=== PATIENT | male | born 1980 | race Caucasian/White ===

== ENCOUNTER 2019-12-30 09:50 | Day surgery (SDC) | payer BC, SELFPAY ==
[2019-12-22 14:27] VITALS: BMI 30.7
--- NOTE | 2019-12-27 06:16 | EKG12_ITS ---
Test Reason : PRE OP Blood Pressure : / mmHG Vent. Rate : 056 BPM Atrial Rate : 056 BPM P-R Int : 174 ms QRS Dur : 112 ms QT Int : 404 ms P-R-T Axes : 030 003 024 degrees QTc Int : 389 ms Sinus bradycardia Otherwise normal ECG Confirmed by ELBA FINK, JOVANNI ([id number]), avid editor MAXIMUS WAGNER ([id number]) on 12/28/2019 9:30:07 AM Referred By: Leno Santiago Confirmed By:JOVANNI ARREOLA MD
[2019-12-27 07:08] LABS: Hematocrit 45.4 % (40-54); Hemoglobin 14.9 g/dL (13.0-16.5); Mean Corp Hgb Conc 32.8 g/dL (32-36); Mean Corpuscular Hgb 30.8 pg (27.0-32.0); Mean Corpuscular Volume 93.8 fL (80-94); Mean Platelet Vol. 9.3 fl (6.2-12.0); Platelet Count 243 K/mm3 (150-450); RBC Distribution Width CV 12.2 % (11.6-14.6); RBC Distribution Width SD 42.1 fl (35.1-43.9); Red Blood Count 4.84 M/mm3 (4.6-6.2); White Blood Count 6.8 K/mm3 (4.4-11.0)
[2019-12-27 07:55] LABS: Anion Gap 5 (5-15); BUN 20 mg/dL (7-18); BUN/Creat Ratio 17.7 RATIO (10-20); Calcium,Total 8.9 mg/dL (8.5-10.1); Chloride 107 mmol/L (98-107); Creatinine, Serum 1.13 mg/dL (0.70-1.30); EST Glomerular Filtration Rate 77 mL/min (>60); Est Glom Filt Rate - Afr Amer 93 mL/min (>60); Glucose 121 mg/dL (74-106); Potassium 4.2 mmol/L (3.5-5.1); Sodium Level 141 mmol/L (136-145)
[2019-12-30 10:10] VITALS: BP 153/69; PULSE 72; RESP 16; TEMP 37; O2SAT 100; BMI 29.5
[2019-12-30] MEDS: Lactated Ringers 1,000 ML 100 ML IV (10:24)
--- NOTE | 2019-12-30 10:38 | PCM.HP.BLA ---
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 Leno Santiago MD) Pilonidal abscess (Acute) Depression with anxiety (Acute) Pilonidal cyst (Acute) Surgical History (Updated 12/22/19 @ 14:26 by Lise Mckinney) History of wisdom tooth extraction (Acute) history cyst removal lower back (Acute) Family History (Updated 12/22/19 @ 14:26 by Lise Mckinney) Mother Cancer kidney cancer Social History (Updated 12/22/19 @ 16:[address] Leno Santiago MD) Smoking Status: Former smoker alcohol intake: current substance use type: does not use HPI HPI HPI: ORLIN SY, is a 39 M who presents to the office today for surgical consultation regarding a pilonidal abscess. 39-year-old gentleman. Claims at 5 times he has had swelling of the coccygeal area. Previously would be sore for 2 to 3 days and then spontaneously resolved. On this occasion he developed so much pain that 6 days ago on Friday he had to leave work. Fortunately it spontaneously drained over the weekend and he felt better. He was seen at [facility] on December 19 with a diagnosis of pilonidal cyst/abscess. He was initiated on doxycycline 100 mg twice daily. He was set up with a surgical follow-up. He has been feeling better since that time. 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 He has not had any previous surgery in this area. He otherwise states that he enjoys good health. He has not had any fever chilling. HPI HPI HPI: ORLIN SY, is a 39 M who presents to the office today for ROS General General: No weight change, appetite, fatigue, colon cancer, breast cancer or weakness HEENT HEENT: No difficulty swallowing, eye injury, eye surgery, swollen glands or hoarseness Endo Endocrine: No thyroid disease, diabetes mellitus, thyroid cancer, Hair loss, heat intolerance or cold intolerance Skin Skin: No rash or changing moles Breast Breast: No left breast lump, right breast lump, nipple discharge, breast pain, abnormal mammogram, abnormal US or breast enlargement Musc Musculoskeletal: No back problems, arthritis, rheumatoid arthritis, gout or joint pain Cardio Cardiovascular: No murmur, pacemaker, heart disease, atrial fibrillation, high blood pressure, heart attack, heart stent, palpitations, shortness of breat with exertion or chest pain Psych Psychiatric: Yes anxiety; no depression or hearing voices Resp Respiratory: No shortness of breath, No sleep apnea, No cough, No COPD, No asthma, No emphysema, No wheezing Gastro Gastrointestinal: No abdominal pain, No nausea or vomiting, No diarrhea, No constipation, No blood in stool, No acid reflux, No hemorrhoids, No ulcers, No gallbladder problem, No black,tarry stools Sergei Hematologic: No blood thinners, No blood disorders, No bleeding, No anemia, No blood clots Neuro Neurologic: No system reviewed and no additional complaints, except as docu, No as per HPI, No abnormal walking, No abnormal hearing, No abnormal movements, No abnormal speech, No behavioral changes, No burning sensations, No confusion, No seizure-like activity, No unsteadiness, No dizziness, No localized weakness, No frequent falls, No headache(s), No lack of coordination, No loss of vision, No memory loss, No numbness, No other visual disturbances, No radiating pain, No restless legs, No sensory deficit, No fainting, No tingling, No tremor(s), No weakness, No other Exam Const General: cooperative, healthy appearing, comfortable, no acute distress Nutritional Appearance: overweight Orientation: alert, awake [facility] Head: normal to inspection Chest Chest palpation & inspection: normal inspection of the chest Breast Palpation: No nipple discharge Resp Effort & Inspection: normal respiratory effort Auscultation: clear to auscultation bilaterally Cardio Rate: regular rate Rhythm: regular rhythm Heart Sounds: no murmurs GI Palpation: soft, no hepatosplenomegaly Auscultation: normal bowel sounds Skin Other: Left apical sacrococcygeal area small 1.5 cm colleen indurated area minimal erythema nontender with area of punctate small drainage site. No expressible purulence. Sinus tract noted apically and inferiorly. Excessive Noted Neuro Cognition: normal cognition Extrem General: no calf tenderness Psych Affect: normal affect Assessment & Plan Problems 1. Pilonidal abscess L05.01 Plan Pilonidal abscess spontaneously drained. The patient is currently on doxycycline 100 mg orally twice daily. I had an extensive discussion with him regarding definitive treatment for pilonidal abscess pilonidal cyst and sinuses. We discussed multiple techniques benefits risk complications and alternatives. Absolutely no guarantee of success have been offered. The patient will initiate hair clipping. I have discussed with him a vertical elliptical excision with primary repair. I discussed the importance of having him infection free at that time. He has had an opportunity to ask and have questions answered. This point he wants an attempt at a definitive treatment option. He is aware that unfortunate there are no guarantees of success. He has had an opportunity ask and have questions answered. I very much appreciate the opportunity of assisting with his surgical care. We will schedule and proceed at his discretion. CC: Dr. Leobardo Santiago, III and Ovidio Santiago M.D., F.A.C.S. Coding Level of Care Code Off vis,new,level 2 Diagnoses Pilonidal abscess L05.01 12/22/19 1632 <Electronically signed by Leno Santiago MD> Date Leno Santiago MD I have re-examined the patient. There are no clinical changes since date of exam. Procedure Criteria Procedure Type: Elective COVID Risk Discussion: The surgeon/proceduralist and patient have discussed in detail the risk of exposure to and/or potential harm posed by the COVID-19 virus with having a surgery/procedure at this time versus the risk of delaying the surgery/procedure. It is not possible to know either the risk of delaying the surgery or procedure or chance of getting an infection with perfect accuracy, but a joint decision was made between the patient and the surgeon/proceduralist to proceed at this time with the scheduled surgery/procedure as indicated on the consent form.
--- NOTE | 2019-12-30 10:39 | PCM.DC.GS ---
Discharge Diet: Light diet - advance as tolerated - if you have questions about your diet instructions, please talk to you doctor. Discharge Activity: May Drive - May drive in approximately 5 days pending drain and comfort, May Not Shower Lifting Restrictions: 10 pounds Call your doctor if your incision/area has: Continuous Slow Oozing, Sudden Increased Bleeding, Increased Pain/ Swelling, Increased Redness, Foul Smelling Discharge Call your doctor if you observe: Fever of 101 or Higher Suture Line Care: Avoid Pulling/Pushing, Avoid Pinching/Bending Additional Dressing/Incision Instructions:: You may change the dressing daily. Utilize a Q-tip and peroxide to cleanse along the suture line and around and a drain. Reapply then dry gauze and paper tape Allergies/Adverse Reactions: Allergies No Known Allergies Allergy (Unverified 12/30/19 10:03) Medications to take at Discharge doxycycline hyclate 100 mg capsule 100 mg PO BID 12/22/19 paroxetine HCl 10 mg tablet 10 mg PO DAILY 12/22/19 Multivitamin 1 ea PO DAILY 12/23/19 [place]-3 Fatty Acids/Fish Oil [Fish Oil 1,000 mg Capsule] 1 ea PO DAILY 12/23/19 Turmeric Root Extract [Turmeric] 500 mg PO DAILY 12/23/19 Orders to be completed after discharge: CORONAVIRUS 19, EMILY SCREEN Time Frame: 12/24/19, Facility: [facility], Location: Laboratory Primary Care Physician: Leobardo Santiago III, MD [Primary Care Provider] - Test Results: Test results from this visit will be discussed in further detail at your follow-up appointment, if applicable. Please Follow Up With: Leno Santiago MD - [phone] When: Call to make an appointment to be seen as recommended
--- NOTE | 2019-12-30 11:00 | PILCYST_PTH ---
PATIENT: SONAL SY LOC[place] [facility] [place][id number] AGE/SX: 39/M ROOM: RE12/30/[address]: Dr. Leno Santiago MD : 1980 BED: DIS: 12/30/2019 SPEC #: [id number] RECD: 12/31/19 06:52 STATUS: GABRIEL JAYLENE #: [id number] EDER: 12/30/19 11:[address]: Leno Santiago DEPT: SURGICAL PATHOLOGY RECD BY: Mina Baeza ENTERED: 12/31/19 07:37 SP TYPE: Pilonidal OTHR DR: Dr. Leobardo Santiago III, MD Tissues: PILONIDAL TISSUE Procedures: Surgery Specimen Level III HEADER OPERATION: Excision pilonidal cyst PRE-OP DIAGNOSIS: Pilonidal abscess TISSUE SUBMITTED: Pilonidal cyst MICROSCOPIC DIAGNOSIS Pilonidal cyst, excision: Consistent with Pilonidal cyst with associated inflammation and foreign body giant cell reaction. ISABEL:arturo 01/03/20 MICROSCOPIC DESCRIPTION Slides are reviewed. GROSS DESCRIPTION Received in fixative is one container labeled with the patient's name and designated pilonidal cyst. The specimen consists of a piece of skin with underlying tissue measuring 10.5 x 2.8 cm and up to 2.5 cm in thickness. Sections reveal focal congested area. Rolled Ham Lacer sections are submitted in two cassettes. / ISABEL:arturo 12/31/19 TC:5 CPT: 98992
[2019-12-30] MEDS: Cefazolin 2 GM in 0.9% Normal Saline 100 ML IV (12:24)
[2019-12-30] MEDS: Bupivacaine Mpf 0.5% 30 ML VIAL (13:30)
--- NOTE | 2019-12-30 13:39 | PCM.OPRPT ---
Problem List (1) Pilonidal abscess Status: Acute Report of Operation Date of Procedure: 12/30/19 Pre-Operative Diagnosis: Pilonidal cyst/abscess Post-Operative Diagnosis: Same Surgery/Procedure Performed:: Pilonidal cystectomy Description of Surgical Findings:: Timeout and informed consent was obtained. 39-year-old gentleman was taken to the operating room and underwent general endotracheal intubation anesthesia he was then placed prone on the table. Care for shoulder and pelvic roll placing. Careful eye protection. Arms were padded. The sacrococcygeal area was carefully treated with Skin-Prep and then taped for exposure. The area was prepped and draped. A vertical elliptical excision base slightly to the left of midline was performed. Length of this incision approximately 10 cm long. Slight angled flapping was performed on the left with more of a vertical dissection on the right. Subcutaneous flap was raised on the right. A 10 round JAZLYN drain was exited superior and left through stab hole was placed to the mobilized subcutaneous fat on the right. It was secured skin with 3-0 nylon. The wound was then closed with a deep layer of interrupted 2-0 Vicryl attempting to close space and secured deep tissue. Then a more superficial subdermal layer of interrupted 3-0 Vicryl was performed. Then the skin edges were approximated with simple and mattress sutures of 3-0 nylon. Excellent approximation was achieved. Excellent obliteration of the ivy cleft was achieved. Nicely approximated wound edges. Sterile dressings were applied. The heath-incisional areas anesthetized with 30 cc of 0.5% Marcaine. Sponge and instrument and needle counts were reported the surgeon to be correct. Blood loss minimal. He tolerated the procedure well and was taken to the recovery room in satisfactory addition without apparent complication. Specimens pilonidal disease. Drains 10 round JAZLYN. Blood loss minimal at 100 cc. Leno Santiago M.D., F.A.C.S. Type of Anesthesia:: General Anesthesiologist: Song Zarco
[2019-12-30 13:52] VITALS: BP 151/85; BP 153/69; PULSE 77; RESP 16; TEMP 36.4; O2SAT 93
[2019-12-30 14:00] VITALS: BP 122/77; BP 153/69; PULSE 74; RESP 16; O2SAT 97
[2019-12-30 14:15] VITALS: BP 132/80; BP 153/69; PULSE 71; RESP 16; O2SAT 100
[2019-12-30 14:21] VITALS: BP 135/80; BP 153/69; PULSE 76; RESP 16; TEMP 36.4; O2SAT 100
[2019-12-30 15:44] VITALS: BP 123/65; BP 153/69; PULSE 74; RESP 16; O2SAT 100
== END 2019-12-30 15:49 | disposition home or self-care (01) ==
LOC: SDC 09:56 → AC 09:57
PROVIDERS: PCP Family Medicine; Referring Provider Surgery; Visit Provider Surgery
PROC: (CPT 11770; principal; 2019-12-30 10:45)
DX: L05.01 Pilonidal cyst with abscess (principal); Z87.891 Personal history of nicotine dependence
CPT/HCPCS: 00300; 11770; 36415; 80048; 85027; 87635; 88304; 93005; G2023; J7120; J2405; Q9968; U0003

== ENCOUNTER 2022-09-05 23:13 | Emergency (ER) | payer OTHER, SELFPAY ==
[2022-09-05 23:14] VITALS: BP 115/75; PULSE 95; RESP 20; TEMP 36.6; O2SAT 98; BMI 29.9
--- NOTE | 2022-09-05 23:32 | EKG12_ITS ---
Test Reason : CP Blood Pressure : / mmHG Vent. Rate : 119 BPM Atrial Rate : 119 BPM P-R Int : 134 ms QRS Dur : 112 ms QT Int : 328 ms P-R-T Axes : 052 000 042 degrees QTc Int : 461 ms Sinus tachycardia Otherwise normal ECG Confirmed by BRENDA FINK, DESIRE ([id number]), editorial intern RACHEL REYNOSO ([id number]) on 09/09/2022 10:56:28 AM Referred By: BB Confirmed By:TEE GUTIERREZ MD
--- NOTE | 2022-09-05 23:40 | RAD_ITS ---
INDICATION: Chest pressure EXAMINATION/TECHNIQUE: X-RAY - XR Chest 2 Views COMPARISON: None. FINDINGS: LINES/DEVICES: None. LUNGS: No consolidation, edema or effusion. No pneumothorax. MEDIASTINUM AND CARDIOVASCULAR STRUCTURES: Cardiac silhouette not enlarged. Central airways and mediastinal contour are unremarkable. BONES AND SOFT TISSUES: Unremarkable. RAD/Chest PA and Lateral IMPRESSION: No radiographic evidence of acute cardiopulmonary disease. Electronically Signed: Stella Mauricio MD at 0:22 EDT ,
[2022-09-05 23:47] LABS: Hematocrit 42.9 % (40-54); Hemoglobin 14.6 g/dL (13.0-16.5); Mean Corpuscular Hgb 31.7 pg (27.0-32.0); Mean Corpuscular Volume 93.1 fL (80-94); Mean Platelet Vol. 9.3 fl (6.2-12.0); Platelet Count 237 K/mm3 (150-450); RBC Distribution Width CV 12.2 % (11.6-14.6); RBC Distribution Width SD 41.7 fl (35.1-43.9); Red Blood Count 4.61 M/mm3 (4.6-6.2); White Blood Count 7.5 K/mm3 (4.4-11.0)
--- NOTE | 2022-09-06 00:12 | ED.VIS.CHEST ---
HPI <Dr. Jose Vaughan MD - Last Filed: 09/08/22 07:19> History of Present Illness Chief Complaint: Chest Pain Detail of Chief Complaint: Midsternal chest pressure that woke him from sleep 20 minutes prior to pres Informant: patient Onset/Context/Timing Onset: Hours Activity at onset: sudden Timing: Continuous Quality: Positive for Pressure Current Severity: Mild Maximum Severity: Moderate Worsened By: Nothing Relieved By: Nothing Associated Symptoms: Positive for Nausea and Lightheadedness; Negative for Vomiting, Diaphoresis, Dyspnea, Cough, Fever, Acid Reflux or Palpitations Narrative Narrative: Patient is a 42-year-old male who is a former smoker. He presents because he was awakened from sleep with pressure sensation in his mid chest that radiated to the right side of his neck and occiput. He also complained of back pain. He describes it as pressure not ripping or tearing. He denies history of hypertension. He has no medical problems. He does admit to history of depression and anxiety. He is a former smoker. Male family member had OR at the age of 55. Patient denies history of PE or DVT. Patient denies history of hiatal hernia or reflux. Patient does endorse mild intolerance to greasy food. There is no family history of cholelithiasis and he denies history of cholelithiasis. The pain does not radiate to the intrascapular region. He denies leg pain, swelling discoloration. He denies black or maroon-colored stool. Prior Similar Symptoms: No Recent Illness/Hospitalization: No CVD Risk Factors: Positive for Family History 1' </=55; Negative for Hypertension, Diabetes, Hypercholesterolemia or Smoking PE Risk Factors: Negative for Recent Travel/Surgery, Recent Immobilization, Prior DVT or PE, Cancer or OCP + Smoking + >/=35 TAD Risk Factors: Negative for Marfan's Syndrome, Hypertension or Family History PFSH <Dr. Jose Vaughan MD - Last Filed: 09/08/22 07:19> [facility] Medical History Depression with anxiety Pilonidal abscess Pilonidal cyst Home Medications buspirone 15 mg tablet 15 mg PO TID 09/06/22 [History Last Taken Unknown] mirtazapine 15 mg tablet 15 mg PO QHS 09/06/22 [History Last Taken Unknown] venlafaxine 37.5 mg tablet 37.5 mg PO DAILY 09/06/22 [History Last Taken Unknown] Allergy/AdvReac Type Severity Reaction Status Date / Time No Known Allergies Allergy Verified 09/05/22 23:18 Family History Mother Cancer kidney cancer Surgical History history cyst removal lower back History of wisdom tooth extraction S/P surgical removal of pilonidal cyst Social History (Updated 09/06/22 @ 00:[address] Jose Vaughan MD) household members: none Smoking Status: Former smoker alcohol intake: current substance use type: does not use ROS <Dr. Jose Vaughan MD - Last Filed: 09/08/22 07:19> ROS ED Constitutional Constitutional ED: Denies chills, fever(s), subjective, sweats or weight loss Eyes Eyes: Reports none; Denies blurry vision, change in vision or diplopia ENT ENT ED: Denies ear pain, rhinorrhea or sore throat Cardiovascular Cardiovascular: Reports as per HPI; Denies orthopnea or paroxysmal nocturnal dyspnea Respiratory/Chest Respiratory/Chest: Denies cough, dyspnea, dyspnea on exertion, orthopnea or paroxysmal nocturnal dyspnea Gastrointestinal Gastrointestinal: Denies abdominal pain, diarrhea, melena, nausea or vomiting Musculoskeletal Musculoskeletal: Reports back pain; Denies arthralgias, myalgias or neck pain Integumentary Denies abscess, Abrasions or rash Neurologic Neurologic: Reports headache(s); Denies paresthesias or weakness Psychiatric Psychiatric: Reports anxiety Hematologic/Lymphatic Hematologic/Lymphatic: Denies easy bleeding or easy bruising EXAM <Dr. Jose Vaughan MD - Last Filed: 09/08/22 07:19> Physical Exam Const Vital Signs: 09/05/22 23:14 09/05/22 23:32 09/06/22 00:29 Temperature 97.9 F Temperature Source Temporal Pulse Rate 95 96 Respiratory Rate 20 H 16 Respiratory Effort Normal Respiratory Pattern Normal Blood Pressure 115/75 Blood Pressure Mean 88 Pulse Ox 98 Oxygen Delivery Method Room Air Room Air 09/06/22 01:22 Temperature Temperature Source Pulse Rate 85 Respiratory Rate 16 Respiratory Effort Respiratory Pattern Blood Pressure Blood Pressure Mean Pulse Ox 98 Oxygen Delivery Method Room Air Positive well nourished and well developed General Appearance ED: well developed and NAD; Negative for pallor HEENT Reports moist mucous membranes HEENT Narrative: Nares patent. Posterior pharynx out erythema or exudate. normocephalic and atraumatic Eyes PERRL and EOMs intact bilaterally General Eye ED: Negative for pale conjunctiva or scleral icterus Neck no lymphadenopathy, supple and no JVD Chest Wall inspection of chest normal and palpation of chest normal Resp normal respiratory effort and clear to auscultation bilaterally Resp Narrative: There is no chest wall pain to palpation. There is no pain with movement. Cardio regular rate, regular rhythm, S1 normal heart sound, S2 normal heart sound and no murmurs Peripheral Pulses: pulses 2+ throughout GI normal to inspection, nondistended, normoactive bowel sounds, soft to palpation, non-tender, non-distended and no masses; Negative for hepatosplenomegaly GI Narrative: There is no palpable pulsatile mass. There is no abdominal bruit. Back/Spine no CVA tenderness and no thoracic nor lumbar tenderness Extremity normal to inspection Extremity Narrative: Distal pulses noted. There is noticed mild peripheral arterial disease. General Extremety ED: Negative for edema or pulses abnormal General Extremity: Negative for edema or pulses abnormal Neuro oriented x3, CN's II-XII intact bilaterally, no sensory deficits noted and gait normal Sensorium / Orientation: awake and alert Motor Exam: strength 5/5 throughout Psych mental status grossly normal Skin no rashes or lesions noted and no wounds General Skin Exam: Negative for jaundice or pallor <Dr. Mich Lawson MD - Last Filed: 09/06/22 03:26> Physical Exam Const Vital Signs: 09/05/22 23:14 09/05/22 23:32 09/06/22 00:29 Temperature 97.9 F Temperature Source Temporal Pulse Rate 95 96 Respiratory Rate 20 H 16 Respiratory Effort Normal Respiratory Pattern Normal Blood Pressure 115/75 Blood Pressure Mean 88 Pulse Ox 98 Oxygen Delivery Method Room Air Room Air 09/06/22 01:22 Temperature Temperature Source Pulse Rate 85 Respiratory Rate 16 Respiratory Effort Respiratory Pattern Blood Pressure Blood Pressure Mean Pulse Ox 98 Oxygen Delivery Method Room Air <Dr. Jose Vaughan MD - Last Filed: 09/08/22 07:19> Heart Score History: Slightly/Non-Suspicious ECG: Normal Age: </= 45 years Risk Factors: 1 or 2 Risk Factors Score: 1 <Dr. Mich Lawson MD - Last Filed: 09/06/22 03:26> Heart Score Troponin: </= Normal Limit Score: 1 MDM <Dr. Jose Vaughan MD - Last Filed: 09/08/22 07:19> [facility] Narrative Medical decision making narrative: Presents with chest pressure that started 20 minutes prior to presentation. This may represent GERD/reflux. Also need to evaluate for cardiac etiology. With a negative clinical Hernandez sign doubt biliary. CBC was obtained to assess for anemia and white count. Troponin with 2-hour troponin was obtained since he presented with 20 to 30 minutes of the onset of his symptoms. History & Record Review Additional record(s) reviewed:: Prior inpatient record (There are no inpatient records.), Prior outpatient record (Surgery in 2019 for pilonidal cyst.) and Prior labs Lab Data Attestation: I reviewed the patient's lab results. Lab results narrative: CBC is unremarkable. Basic metabolic panel is remarkable for an elevated creatinine. Prior creatinine was obtained in 2019 was normal. GFR is 55. First troponin is normal at 6. Labs: Laboratory Results - last 24 hr 09/05/22 09/05/22 09/05/22 23:40 23:40 23:40 WBC 7.5 RBC 4.61 Hgb 14.6 Hct 42.9 MCV 93.1 MCH 31.7 MCHC 34.0 RDW Std Deviation 41.7 RDW Coeff of Albert 12.2 Plt Count 237 MPV 9.3 Sodium 138 Potassium 3.5 Chloride 101 Carbon Dioxide 28.0 Anion Gap 9 BUN 28 H Creatinine 1.49 H Estim Creat Clear Calc 69.49 Est GFR (MDRD) Af Amer 67 Est GFR (MDRD) Non-Af 55 L BUN/Creatinine Ratio 18.8 Glucose 203 H Calcium 8.7 Troponin I High Sens Cancelled 6 09/06/22 01:49 WBC RBC Hgb Hct MCV MCH MCHC RDW Std Deviation RDW Coeff of Albert Plt Count MPV Sodium Potassium Chloride Carbon Dioxide Anion Gap BUN Creatinine Estim Creat Clear Calc Est GFR (MDRD) Af Amer Est GFR (MDRD) Non-Af BUN/Creatinine Ratio Glucose Calcium Troponin I High Sens 6 Radiography Diagnostic Testing: Clinical Impression(s) from Imaging Studies Chest X-Ray 09/05/22 23:40 IMPRESSION: No radiographic evidence of acute cardiopulmonary disease. Electronically Signed: Stella Mauricio MD at 0:22 EDT , EKG Initial EKG: Attestation: I personally reviewed and interpreted this EKG as follows: Interpretation: Sinus Tachycardia (Sinus tachycardia of 119. EKG is otherwise normal. NE interval is 134 ms. Cures duration 112 ms. QT duration 282 ms. Benton is normal. There is an RR prime in V1 noted. This is unremarkable.) Differential Diagnosis Chest pain/SOB: pulmonary embolism Reason(s) PE less likely: Positive for PERC negative, not tachycardic (Vitals reveal a heart rate of 95. Monitor reveals a heart rate of 96.) and not hypoxic, pneumothorax Reason(s) pneumothorax less likely: Positive for bilateral breath sounds and ARNP withhout PTX, pneumonia Reason(s) pneumonia less likely: Positive for no infiltrate on CXR, no elevation in WBC count, no noted fever and symptoms not consistent with acute infection and aortic dissection Reason(s) Aortic dissection less likely:: Positive for normal vascular exam, no history of HTN, normal neurological exam, no significant risk factors for dissection, no widened mediastinum on CXR, no ripping/tearing pain and blood pressure appropriate in ED Treatment and Re-Evaluation :: Patient was informed of his results. Awaiting 2-hour troponin. If 2-hour troponin and delta are normal plan is discharge. This may be due to GERD or anxiety since patient has history of anxiety. More likely GERD since this awoke him from sleep. The night physician will be made aware of his history physical and to make disposition once the 2-hour troponin has returned <Dr. Mich Lawson MD - Last Filed: 09/06/22 03:26> [facility] Lab Data Labs: Laboratory Results - last 24 hr 09/05/22 09/05/22 09/05/22 23:40 23:40 23:40 WBC 7.5 RBC 4.61 Hgb 14.6 Hct 42.9 MCV 93.1 MCH 31.7 MCHC 34.0 RDW Std Deviation 41.7 RDW Coeff of Albert 12.2 Plt Count 237 MPV 9.3 Sodium 138 Potassium 3.5 Chloride 101 Carbon Dioxide 28.0 Anion Gap 9 BUN 28 H Creatinine 1.49 H Estim Creat Clear Calc 69.49 Est GFR (MDRD) Af Amer 67 Est GFR (MDRD) Non-Af 55 L BUN/Creatinine Ratio 18.8 Glucose 203 H Calcium 8.7 Troponin I High Sens Cancelled 6 09/06/22 01:49 WBC RBC Hgb Hct MCV MCH MCHC RDW Std Deviation RDW Coeff of Albert Plt Count MPV Sodium Potassium Chloride Carbon Dioxide Anion Gap BUN Creatinine Estim Creat Clear Calc Est GFR (MDRD) Af Amer Est GFR (MDRD) Non-Af BUN/Creatinine Ratio Glucose Calcium Troponin I High Sens 6 Radiography Diagnostic Testing: Clinical Impression(s) from Imaging Studies Chest X-Ray 09/05/22 23:40 IMPRESSION: No radiographic evidence of acute cardiopulmonary disease. Electronically Signed: Stella Mauricio MD at 0:22 EDT , Treatment and Re-Evaluation Comments:: Patient turned over to me. His second troponin returned at 6, the same as the first 1 for a delta of 0. He is asymptomatic right now. His resting heart rate is 89 on my reevaluation, however his significant other expressed concern that we were sending him home without an answer, and the fact that his heart rate was in the 90s and 100s at times here, and he is normally in the 50s. 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 Given all of this, I had further discussion with them, obtaining my own history. It sounds like the patient woke up suddenly with pounding racing heartbeat and pressure/heaviness in his chest. He came right to the emergency department, where symptoms gradually resolved over about 10 minutes after he arrived here. Staff states that he was extremely anxious and panicky at the front end developer, but in my opinion it does not sound like an anxiety or panic attack because the symptoms, it sounds more likely that came later as a result of the symptoms. I did review his EKG, it shows sinus tachycardia and no other acute abnormality, on my interpretation. It sounds to me like the patient had a supraventricular dysrhythmia of some sort, and I suspect he had residual tachycardia afterwards which is common. Given his chest discomfort I agree with getting the troponins, and given that both of them are negative, and he is asymptomatic with heart rate of 89 sinus rhythm on the monitor at this time, it is safe for him to follow-up as an outpatient, returning to the ER for recurrent symptoms. I did offer CTA of the chest to evaluate for aortic dissection, he does not want that right now and would prefer to go home. All questions answered at the bedside prior to discharging them. He is asking for a referral to a PCP at [facility], since he does not want to see primary care at the [place] where his other care is provided at. Discharge Plan Triage Chief Complaint: Chest Pain ED Provider: Jose Vaughan Dx/Rx/DC Orders Clinical Impression: Chest pain, unspecified, Heart palpitations Instructions: ED Palpitations Prescriptions: No Action venlafaxine [Effexor] 37.5 mg Tablet 37.5 mg PO DAILY mirtazapine 15 mg Tablet 15 mg PO QHS buspirone [BuSpar] 15 mg Tablet 15 mg PO TID Primary Care Provider: Care Physician,No Primary Referrals: Darion Castillo MD [Non-Staff] - As soon as possible (call for appt) Disposition Disposition: Home, Self Care Discharge Date/Time: 09/06/22 03:23
[2022-09-06 00:13] LABS: Anion Gap 9 (5-15); BUN 28 mg/dL (7-18); BUN/Creat Ratio 18.8 RATIO (10-20); Calcium,Total 8.7 mg/dL (8.5-10.1); Chloride 101 mmol/L (98-107); Creatinine, Serum 1.49 mg/dL (0.70-1.30); EST Glomerular Filtration Rate 55 mL/min (>60); Est Glom Filt Rate - Afr Amer 67 mL/min (>60); Estimated Creatinine Clearance 69.49 ml/min; Glucose 203 mg/dL (74-106); Potassium 3.5 mmol/L (3.5-5.1); Sodium Level 138 mmol/L (136-145)
[2022-09-06 00:24] LABS: Troponin-I HS (w/2H Reflex) 6 pg/mL (3.0-78.0)
[2022-09-06 00:29] VITALS: PULSE 96; RESP 16
[2022-09-06 01:22] VITALS: PULSE 85; RESP 16; O2SAT 98
[2022-09-06 01:44] LABS: Reflex Troponin-HS? (from REC) Y
[2022-09-06 02:11] LABS: Troponin-I HS 6 pg/mL (3.0-78.0)
[2022-09-06 03:20] VITALS: PULSE 83; RESP 18; O2SAT 99
== END 2022-09-06 03:23 | disposition home or self-care (01) ==
PROVIDERS: Emergency Provider Emergency Medicine; Visit Provider Emergency Medicine
DX: R07.9 Chest pain, unspecified (principal); Z87.891 Personal history of nicotine dependence; R00.2 Palpitations; F41.8 Other specified anxiety disorders
CPT/HCPCS: 71046; 80048; 84484; 85027; 93005; 99284; A4216

== ENCOUNTER 2023-03-28 09:42 | Day surgery (SDC) | payer BC, OTHER, SELFPAY ==
--- NOTE | 2023-03-28 | LES_PTH ---
PATIENT: SONAL SY LOC: [facility] U#:[id number] AGE/SX: 42/M ROOM: RE03/28/[address]: Dr. Fern Dykes MD : 1980 BED: DIS: 03/28/2023 SPEC #: [id number] RECD: 03/28/23 13:19 STATUS: GABRIEL JAYLENE #: [id number] EDER: 03/28/23 00:[address]: Fern Dykes DEPT: SURGICAL PATHOLOGY RECD BY: Leonel Choudhury ENTERED: 03/28/23 13:20 SP TYPE: Lesion OTHR DR: No Primary Care Phys Tissues: A - Skin of forehead B - Skin of face, NOS Procedures: Surgery Specimen Level IV HEADER OPERATION: Shave lesion forehead, excision lesion right cheek PRE-OP DIAGNOSIS: Lesion right cheek, forehead TISSUE SUBMITTED: A - Shaved lesion forehead, B - Excised lesion right cheek - check margins MICROSCOPIC DIAGNOSIS A. Skin lesion of forehead, shave biopsy: Verrucoid keratosis, inflamed. Organisms consistent with tinea. Hyperkeratosis and focal parakeratosis. B. Skin lesion of right cheek, excision: Verrucoid keratosis, inflamed, completely excised. Solar elastosis. AM:arturo 03/31/2023 COMMENT Case has been reviewed in consultation with Dr. Rahman who concurs with the above diagnosis. IDC:SJ MICROSCOPIC DESCRIPTION Slides are reviewed. GROSS DESCRIPTION A - Received in fixative is one container labeled with the patient's name and designated shaved lesion forehead. The specimen consists of an irregular piece of do-light brown skin measuring 1.0 x 1.0 x 0.2 cm. The specimen is inked, serially sectioned and submitted entirely in one cassette. B - Received in fixative is one container labeled with the patient's name and designated excision lesion right cheek. The specimen consists of a piece of do-white skin measuring 0.6 x 0.7 cm and up to 0.4 cm in thickness. A lesion is noted on the surface measuring 0.6 cm in greatest dimension. The specimen is inked, serially sectioned and submitted entirely in one cassette. / ISABEL:arturo 03/28/2023 TC:2 CPT: 09345 x2
[2023-03-28 10:01] VITALS: BP 147/98; PULSE 80; RESP 16; TEMP 36.6; O2SAT 99; BMI 30.1
--- NOTE | 2023-03-28 11:44 | PCM.HP.BLA ---
History and Physical Date of Admission: 03/28/23 Patient examined and H&P is unchanged from examination on 03/25/2023. He has a lesion of his forehead and right cheek for excision and submitted for pathologic evaluation. Informed consent was obtained. Assessment & Plan Assessment/Plan (1) Neoplasm of uncertain behavior of skin: PLAN: Plan For excision lesions forehead and cheek
[2023-03-28 11:54] VITALS: BP 150/95; O2SAT 96
[2023-03-28 12:07] VITALS: O2SAT 98
[2023-03-28 12:12] VITALS: BP 146/90; BP 150/98; O2SAT 100; O2SAT 98; O2SAT 99
[2023-03-28] MEDS: Lidocaine 1% /Epi 1:100 9 ML, Sodium Bicarbonate 1 MEQ OPERA.SITE (12:15)
[2023-03-28] MEDS: BACITRACIN/POLYMYXIN B 15 GM Tube 1 APPLIC (12:42)
--- NOTE | 2023-03-28 12:44 | DCINST_ITS ---
Discharge Instructions Diet Discharge Diet: No restrictions Activity Additional Activity Instructions:: Keep your back elevated (recliner position) for the next 2-3 nights to reduce bleeding and swelling. Take the oral antibiotic (Keflex) 2 x a day until finished. On the forehead--may remove the bandaid tomorrow and leave it open. On the cheek--do not shave over the area. Follow Up Care Please Follow Up With: Fern Dykes MD Test Results: Test results from this visit will be discussed in further detail at your follow- up appointment, if applicable. Discharge Plan Admission Attending Provider: Fern Dykes Primary Care Provider: Care Physician,Arabella Primary Discharge Orders/Prescriptions Prescriptions: New cephalexin 500 mg capsule 500 mg PO BID Qty: 10 0RF No Action mirtazapine 15 mg Tablet 15 mg PO QHS buspirone [BuSpar] 15 mg Tablet 15 mg PO TID venlafaxine 37.5 mg tablet 75 mg PO DAILY Referrals / Follow Up: Care Physician,No Primary [Primary Care Provider] - Disposition Disposition (needs filled in before D/C Order can be placed): Home, Self Care
--- NOTE | 2023-03-28 12:51 | PCM.OPRPT ---
Problems Associated Problem List Diagnoses (1) Neoplasm of uncertain behavior of skin: Report of Operation Date of Procedure: 03/28/23 Pre-Operative Diagnosis: Lesion of forehead and right cheek of uncertain behavior Post-Operative Diagnosis: Same Surgery/Procedure Performed:: Shave lesion forehead (1.5 cm); excision lesion left cheek (1.0 cm) with intermediate closure Surgeon: Fern Dykes Type of Anesthesia: Local Specimen's removed: Lesion forehead and right cheek Description of Procedure: The procedure of shave lesion forehead and excision lesion right cheek was reviewed with the patient. He is aware that these will be submitted for pathologic evaluation. The patient was brought to the operating room and placed on the operating room table in the supine position. The forehead and right cheek are prepped and draped in the usual sterile fashion. 1% Xylocaine with epinephrine is used for local anesthetic. Following this, the lesion on the forehead is shaved at the base and the base full rise. Antibiotic ointment and a Band-Aid are placed on this area. On the right cheek, after anesthetizing the area with 1% Xylocaine with epinephrine, this site is elliptically excised and passed off the operative field to be sent to pathology. Hemostasis is controlled with cautery. The incision is then closed in layers using a Monocryl suture in the subcutaneous tissue and dermis. Skin edges were approximated with a running subcuticular Monocryl suture. Further refinement the closure was done with a fast-absorbing gut. The wound is then dressed with Dermabond. He tolerated the procedure well and was taken to the recovery area in an awake and stable condition. Needle and sponge counts are correct. Complications None Admit VTE Documentation VTE Mechan Device Prophylaxis: None Reason prophylaxis not ordered:: Treatment Not Indicated
[2023-03-28 13:01] VITALS: BP 146/96; BP 147/98; PULSE 71; RESP 18; TEMP 36.4; O2SAT 98
== END 2023-03-28 13:06 | disposition home or self-care (01) ==
LOC: SDC 09:43 → AC 09:45
PROVIDERS: Referring Provider Plastic Surgery; Visit Provider Plastic Surgery
PROC: (CPT 12051; principal; 2023-03-28 11:10)
DX: D48.5 Neoplasm of uncertain behavior of skin (principal); L57.0 Actinic keratosis; L57.8 Other skin changes due to chronic exposure to nonionizing radiation; W89.9XXA Exposure to unspecified man-made visible and ultraviolet light, initial encounter
CPT/HCPCS: 12051; 88305

== ENCOUNTER 2024-01-30 08:30 | Outpatient (RCR) | payer OTHER, BC, SELFPAY ==
--- NOTE | 2024-01-30 09:12 | HP.OTEVAL ---
Patient's Visit Information Visit Information Visit Information: SONAL SY is a 43 year old M, referred to Occupational Therapy by Dr. Narayan Frey MD, with a diagnosis of left LF/RF contusion. Date of Evaluation: 01/19/24 Occupational Therapist: Ave Merritt, OTR/Alice, CHT Subjective Subjective: This 43 year old male was seen for OT eval with dx of left RF, LF contusion. Pt states this happened November 29, 2023. Use of a wheel barrel hit his hand hand he thought hit his fingers. At night pain did increase- he would use ice and when he went to urgent care they did give him a brace but this he felt made it worse. Pt works for [employer]. pt states he is limited at work with grabbing or moving material - starts to hurt. 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 with work task by d/c Goal:: pt will report pain no greater than 2/10 with use of left hand with work tasks by d.c Goal:: pt will demo understanding of joint protection and ergo of wrist/finger by end of 1st session to avoid ecxessive finger stretching or trauma by end d/c. Goal:: pt will demo understanding of using kinensio tape to support structures around LF and RF to decrease lateral stress on lig/tendon structures by end of 1st session. Rehabilitation General Assessment: Pt arrives 7 weeks and 2 days from DOI demo with a weakness of left finger grip machine operator strength and soft tissue palpation pain lateral band. Pt would benefit from skilled OT services 1-2x week for next 3 -4 weeks however pt is working out of town and will be unable to attend therapy sessions consistently. Today therapist ed. pt on dx and supportive tape to avoid stress on lateral bands. pt demo understanding. PT to return prior to Dr. hernandez for to check on pts progress. Rehabilitation Potential: Good Anticipated Interventions Anticipated Interventions: Strengthening, Triggerpoint Release, Modalities, Orthoses, Joint Protection/Energy Conservation, Ergonomic Education, Education re assistive Equipment, Education re Diagnosis and Home Program Visit Plan Frequency: 1-2x /Week Duration: 4 Weeks TEXT: Thank you for the opportunity to evaluate your patient. For Medicare and Medicare HMO plans, please review the plan of care and approve it. It will need to be FAXED BACK to us at [phone] for Medicare purposes. Please let me know if there are questions or concerns regarding this plan of care. Physician Signature: Date:
== END 2024-01-30 19:00 | disposition home or self-care (01) ==
LOC: OT 08:30
PROVIDERS: Referring Provider Orthopaedic Surgery; Visit Provider Orthopaedic Surgery
DX: S60.042D Contusion of left ring finger without damage to nail, subsequent encounter (principal); S60.052D Contusion of left little finger without damage to nail, subsequent encounter; S60.222D Contusion of left hand, subsequent encounter
CPT/HCPCS: 97035; 97140; 97166; 97530

== ENCOUNTER → 2025-05-27 | Outpatient (CLI) | payer BC, SELFPAY ==
--- OUTSIDE RECORDS SUMMARY | 2025-05-27 07:03 | XMS RPT_ITS | CCD ---
Author Organization [facility] Care Team Providers Care Psychiatric Aide Instructor Name Role Phone Josefina FINK, Mel Primary Care Provider Care Physician, No Primary Primary Care Provider Unavailable Care Physician, No Primary Referring Provider Un available Jania, Dr. Shirley Attending Provider [phone] Jania, Dr. Shirley Referring Provider Jania, Dr. Shirley Other Provider Mel Warren MD Primary Care Provider Narayan Frey Referring Unavailable Narayan Frey Attending Unavailable Care Physician, No Primary Primary Care Unava ilable Unavailable Primary Care Provider Unavailabl e TESTANA LAMB Admitting Unavailable TESTRAKE, ANA Attending Unavailable TESTRAKE, ANA Referring Unavailable TESTRAKE, ANA Attending Unavailable TESTRAKE, ANA Referring Unavailable TESTRAKE, ANA Attending Unavailable TESTRAKE, ANA Referring Unavailable O'JOSECORINAMAXINE Attending Unavailable MEL WARREN Primary Care Unavailable TESTRAKE, ANA Attending Unavailable TESTRAKE, ANA Referring Unavailable TESTRAKE, ANA Attending Unavailable TESTRAKE, ANA Referring Unavailable TESTRAKE, ANA Attending Unavailable TESTRAKE, ANA Attending Unavailable TESTRAKE, ANA Attending Unavailable Medications Current Medications Medication Drug Class(es) Dates Sig (Normalized) Sig (Original) acetaminophen 325 mg / oxyCODONE hydrochloride 5 mg oral tablet (2 sources) Opioid Agonist Start: 01-21-2025 End: 01-28-2025 take 1 tablet by mouth every six hours as needed for pain oxyCODONE-acetami nophen (PERCOCET) 5-325 mg tablet Indications: Neuroma Take 1 tablet by mouth every 6 hours as needed for pain for up to 7 days. 28 tablet 01/21/2025 01/28/2025 Active amoxicillin 875 mg oral tablet (1 source) Penicillin-class Antibacterial Start: 04-27-2024 End: 05-04-2024 take 1 tablet by mouth twice daily amoxicillin (AMOXIL) 875 mg tablet Indications: Otitis media with effusion, left Take 1 tablet by mouth two times a day for 7 days. 14 tablet 04/27/2024 05/04/2024 Active amoxicillin 875 mg / clavulanate 125 mg oral tablet (2 sources) Penicillin-class Antibacterial Start: 01-21-2025 End: 01-28-2025 take 1 tablet by mouth twice daily amoxicillin-clavu lanate potassium (AUGMENTIN) 875-125 mg per tablet Take 1 tablet by mouth two times a day for 7 days. 14 tablet 01/21/2025 01/28/2025 Active busPIRone hydrochloride 15 mg oral tablet (15 sources) Start: 09-06-2022 take 1 tablet by mouth three times daily Buspirone (Buspar) 15 mg Tablet Active 15 MG PO THREE TIMES A DAY September 06, 2022 12:00am Start: 11-27-2020 take 1 tablet by yohan th three times daily busPIRone (BUSPAR) 10 mg tablet Take 1 tablet by mouth three times daily. 90 tablet 4 11/27/2020 Active Comment on above: Take 1 tablet by yohan th three times daily. cephalexin 500 mg oral capsule (1 source) Cephalosporin Antibacterial Start: 03-28-20 take 500 mg by mouth twice daily Cephalexin Active 500 MG PO TWICE A DAY March 28, 2023 12:00am mirtazapine 15 mg oral tablet (13 sources) Start: 09-07-19 take 1 tablet by mouth once daily at bedtime mirtazapine (REMERON) 15 mg tablet Take 1 tablet by mouth daily at bedtime. 09/06/2022 Active multivitamin tablet (13 sources) take 1 tablet by mouth once daily multivitamin tablet Take 1 tablet by mouth once daily. Suspended take 1 tablet by mouth once timoteo y multivitamin tablet Take 1 tablet by mouth once daily. Active take 1 tablet by mouth once timoteo y multivitamin tablet Take 1 tablet by mouth once daily. 0 Active Comment on above: Take 1 tablet by yohan th once daily. PARoxetine hydrochloride 20 mg oral tablet (13 sources) Serotonin Reuptake Inhibitor Start: 11-28-19 take 1 tablet by mouth once daily PARoxetine (PAXIL) 20 mg tablet Indications: Anxiety Take 1 tablet by mouth once daily. 30 tablet 4 11/27/2020 Active Comment on above: Take 1 tablet by yohan th once daily. raNITIdine 150 mg oral tablet (13 sources) Histamine-2 Receptor Antagonist take 1 tablet by mouth twice daily ranitidine (ZANTAC) 150 mg tablet Take 150 mg by mouth twice daily. Active Comment on above: Take 150 mg by mouth twice daily. 24 hr venlafaxine 75 mg extended release oral capsule (14 sources) Serotonin and Norepinephrine Reuptake Inhibitor Start: 01-05-20 take 1 capsule by mouth once daily in the morning venlafaxine ER (EFFEXOR XR) 75 mg 24 hr capsule Take 1 capsule by mouth every morning. 01/05/2024 Active Start: 03-25-2023 take 75 mg by mouth once daily Venlafaxine Active 75 MG PO DAILY March 25, 2023 3:46pm Start: 09-06-2022 End: 03-25-2023 take 1 tablet by mouth once daily Venlafaxine (Effexor) 37.5 mg Tablet Discontinued 37.5 MG PO DAILY September 06, 2022 12:00am March 25, 2023 3:46pm Completed/Discontinued Medications Medication Drug Class(es) Dates Sig (Normalized) Sig (Original) acetaminophen 325 mg / HYDROcodone bitartrate 5 mg oral tablet (2 sources) Opioid Agonist Start: 12-30-2019 End: 01-01-2020 take 1 tablet by mouth every six hours as needed Hydrocodone-Acetami nophen Discontinued 1 TABLET PO EVERY 6 HOURS NEEDED 5 December 30, 2019 January 01, 2020 12:03am Problems Active Problems Problem Classification Problem Date Documented Date Episodic/Chronic Anxiety disorders (17 sources) Anxiety; Translations: [Anxiety disorder, unspecified] Onset: 10-04-2015 Chronic Cardiac dysrhythmias (2 sources) Palpitations; Translations: [Palpitations] 09-06-2022 Episodic Esophageal disorders (8 sources) Gastroesophageal reflux disease without esophagitis; Translations: [Gastro-esophageal reflux disease without esophagitis] Onset: 01-06-2025 01-06-2025 Chronic Neoplasms of unspecified nature or uncertain behavior (3 sources) Neoplasm of uncertain behavior of skin; Translations: [Neoplasm of uncertain behavior of skin] 03-25-2023 Episodic Nonspecific chest pain (2 sources) Chest pain; Translations: [Chest pain, unspecified] 09-06-2022 Episodic Other and unspecified benign neoplasm (18 sources) Neuroma; Translations: [Benign neoplasm of peripheral nerves and autonomic nervous system, unspecified] Onset: 12-24-2024 11-23-2024 Episodic Other connective tissue disease (1 source) Bursitis of left foot; Translations: [Other enthesopathy of left foot and ankle] 11-23-2024 Episodic Other connective tissue disease (1 source) Bursitis of right foot; Translations: [Other enthesopathy of right foot and ankle] 11-23-2024 Episodic Other nervous system disorders (1 source) Mortons neuroma of left foot; Translations: [Lesion of plantar nerve, left lower limb] 11-23-2024 Chronic Other nervous system disorders (1 source) Mortons neuroma of right foot; Translations: [Lesion of plantar nerve, right lower limb] 11-23-2024 Chronic Other nervous system disorders (1 source) Lesion of plantar nerve, left lower limb; Translations: [Mariano's neuroma of left foot] Onset: 11-23-2024 Chronic Other nervous system disorders (1 source) Lesion of plantar nerve, right lower limb; Translations: [Mariano's neuroma of right foot] Onset: 11-23-2024 Chronic Otitis media and related conditions (1 source) Otitis media of left ear; Translations: [Unspecified nonsuppurative otitis media, left ear] 04-27-2024 Episodic Residual codes; unclassified (3 sources) Postoperative state; Translations: [Other specified postprocedural states] 01-25-2025 Episodic Residual codes; unclassified (1 source) Other specified postprocedural states; Translations: [Post-operative state] Onset: 03-31-2025 Episodic Skin and subcutaneous tissue infections (3 sources) Pilonidal cyst with abscess; Translations: [Pilonidal cyst with abscess] Onset: 03-31-2025 12-22-2019 Episodic Past or Other Problems Problem Classification Problem Date Documented Da te Episodic/Chronic Other and unspecified benign neoplasm (2 sources) Benign neoplasm of peripheral nerves and autonomic nervous system, unspecified; Translations: [Neuroma] Onset: 12-24-2024 Episodic Other connective tissue disease (1 source) Other enthesopathy of left foot and ankle; Translations: [Bursitis of left foot] Onset: 11-23-2024 Episodic Other connective tissue disease (1 source) Other enthesopathy of right foot and ankle; Translations: [Bursitis of right foot] Onset: 11-23-2024 Episodic Other skin disorders (11 sources) Folliculitis; Translations: [Follicular disorder, unspecified] Onset: 07-23-2013 Resolved: 06-01-2019 06-01-2019 Episodic Residual codes; unclassified (11 sources) Kidney donor; Translations: [Kidney donors] Onset: 12-23-2011 Resolved: 07-23-2013 07-23-2013 Episodic Unclassified (2 sources) history cyst removal lower back 01-08-2022 Results Test Name Value Interpretation Reference Range Facility [facility] 03-31-2025 CNOV Office Visit (PODIWS ) DARRELL WISEMAN ([id number]) 1980 M Date Time Provider Department 03/31/25 8:00 AM ANA GARCIA PODIWS During your visit today, we recorded the following information about you: Gil Wyman MA 04/02/2025 10:39 AM Signed AMB ROOMING INTAKE FLOWSHEET DATA Pain Pain Level: 5 Pain Location: Foot-Left Description: Sharp, Sore, Dull Duration Amount of Time: 2 Duration Units: Weeks Frequency: Continuous Intervention/Comfort measure: Medication Comments: tylenol or advil Ana Garcia 04/02/2025 10:39 AM Signed FOLLOW UP PODIATRIC OFFICE VISIT Chief Complaint: This 44 year old who presents for follow up:left foot neuroma excision Patient presents to clinic for follow-up left foot. Patient underwent neuroma excision in November 2024. His incision healed nicely and was doing well. Recently developed suture abscess. He completed his last dose of the cipro. The wound is now healed. Patient denies any drainage or redness. STill has pain to the plantar aspect of left foot and dorsal aspect of left foot. Worse with standing Patient states the pain is between the left 2nd and 3rd interspace PAIN EVALUATION 03/24/2025 0954 03/31/2025 0800 Pain Level: 8 5 Pain Location: Foot-Left Foot-Left Description: Aching;Sharp;Sore;Sta bbing Sharp;Sore;Dull Duration Amount of Time: 1 2 Duration Units: Weeks Weeks Frequency: Continuous Continuous Intervention/Comfort measure: -- Medication Comments: -- tylenol or advil Hemoglobin A1C (POCT) Date Value Ref Range Status 06/07/2019 5.9 (A) 4.2 - 5.6 % Final Comment: Point of care (POC) Hemoglobin A1c (HGBA1C) testing is intended to assess glucose control and provide a management tool for patients known to have diabetes and their healthcare providers. Target HGBA1C levels may depend on specific clinical circumstances. POC HGBA1C is not intended for use as a diagnostic or screening test; laboratory-based testing should be used for diagnostic purposes. The following information is supplemental and may not be applicable to specific diabetes management situations: The POC device siene maker provides a normal range of 4.2% to 6.5% for the HGBA1C POC test. However, the [place] [employer] guidelines indicate that patients with HGBA1C in the range of 5.7% to 6.4% are at increased risk for development of diabetes and that intervention by lifestyle modification may be beneficial. A HGBA1C level greater than or equal to 6.5% is considered diagnostic of diabetes, pending confirmatory testing. Use of HGBA1C testing to evaluate glucose control may not be appropriate for patients with hemoglobin variants or other conditions (e.g. anemia) that alter red blood cell lifespan. PCP: No primary care provider on file. PAST MEDICAL HISTORY Diagnosis Date Acid reflux Anxiety Erection pain 07/23/2013 Folliculitis 07/23/2013 Transplant donor evaluation 12/31/2011 Current Outpatient Medications Medication Sig venlafaxine ER (EFFEXOR XR) 75 mg 24 hr capsule Take 1 capsule by mouth every morning. mirtazapine (REMERON) 15 mg tablet Take 1 tablet by mouth daily at bedtime. multivitamin tablet Take 1 tablet by mouth once daily. PARoxetine (PAXIL) 20 mg tablet Take 1 tablet by mouth once daily. (Patient not taking: Reported on 04/27/2024) busPIRone (BUSPAR) 10 mg tablet Take 1 tablet by mouth three times daily. (Patient not taking: Reported on 04/27/2024) ranitidine (ZANTAC) 150 mg tablet Take 150 mg by mouth twice daily. (Patient not taking: Reported on 04/27/2024) No current facility-administered medications for this visit. ALLERGIES No Known Allergies PAST SURGICAL HISTORY Procedure Laterality Date CYST/MOLE REMOVAL tailbone PAST SURGICAL HISTORY OF Extraction of [place] Teeth Physical Exam: OBJECTIVE: Constitutional: Pt is a well developed 44 year old male who is alert, oriented, cooperative and in no apparent distress. Eyes: Following during examination. No redness or drainage. Respiratory: RR normal and nonlabored. Even breathing. No evidence of distress. Psychology: Patient is engaged during conversation. Normal affect and mood. Does not appear depressed or anxious. NVSI unchanged from previous visit. Dermatological: Surgical incision to left 3rd interspace is no healed again and there is no evidence of cellulitis Musculoskeletal/Ortho paedic: Patient has pain to palpation of left 2nd interspace Patient has mild pain to plantar aspect of left 3rd interspace - carolyn sign to left foot ASSESSMENT: (D36.10) Neuroma (primary encounter diagnosis) (Z98.890) Post-operative state (L02.612) Abscess of left foot PLAN: Reviewed wound culture to recent suture abscess. Gram negative bacteria. Completed course of cipro. The wound is no healed. No need for continued antibiotics Discussed pain (more content not included)... Normal [facility] 03-23-2025 [facility] (PODIMM) DARRELL WISEMAN ([id number]) 1980 M Date Time Provider Department 03/23/25 ANA GARCIA PODKAYLAM During your visit today, we recorded the following information about you: Ana Garcia 03/23/2025 8:20 PM Signed I called patient today to discuss my e consult to ID. He is currently on bactrim. WE discussed the culture results. Results are not yet final. He is on bactrim and tolerating the medication. I told him that I did reach out to ID. They did say other options would be to do levaquin which would cover pseudomonas. He is already prescribed bactrim and I like bactrim in the event he has MRSA on culture. Will add cipro. Cautioned patient against excessive/strenous exercise as cipro could lead to tendon rupture. Patient still having pain but states pain is 7/10. Pain is tolerable. Patient is informed to call if he has any issues Ana GarciaVARUN Allergies As of Date: 03/23/2025 (No Known Allergies) Date Reviewed: 03/22/2025 Reviewed by: Ceci Vines RN - Fully Assessed Order(s):ciprofloxaci n HCl (CIPRO) 500 mg tabletTake 1 tablet by mouth two times a day for 7 days.Disp: 14 tabletRfl: 0 Prescriptions as of 03/23/2025 - ciprofloxacin HCl (CIPRO) 500 mg tablet Take 1 tablet by mouth two times a day for 7 days. - sulfamethoxazole-trim ethoprim (BACTRIM DS) 800-160 mg per tablet Take 1 tablet by mouth two times a day for 7 days. - venlafaxine ER (EFFEXOR XR) 75 mg 24 hr capsule Take 1 capsule by mouth every morning. - mirtazapine (REMERON) 15 mg tablet Take 1 tablet by mouth daily at bedtime. - PARoxetine (PAXIL) 20 mg tablet Take 1 tablet by mouth once daily. - busPIRone (BUSPAR) 10 mg tablet Take 1 tablet by mouth three times daily. - ranitidine (ZANTAC) 150 mg tablet Take 150 mg by mouth twice daily. - multivitamin tablet Take 1 tablet by mouth once daily. 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 Encounter Status:Closed by ANA GARCIA DPToshia on 03/23/25 Normal [facility] Bacteria Wnd Culton 03-22-20 25 Bacteria identified Cx Nom (Wound) ORGANISM ID: 1 Rare skin romel No further workup GRAM STAIN: Rare Gram negative bacilli Rare Polymorphonuclear leukocytes Abnormal [facility] Comment on above: Performed By: #### [id number] ####[facility] [id number] [address] [facility] 03-22-2025 CNOV Office Visit (PODIWS ) DARRELL WISEMAN ([id number]) 1980 M Date Time Provider Department 03/22/25 10:15 AM ANA GARCIA PODIWS During your visit today, we recorded the following information about you: Ceci Vines RN 03/23/2025 7:37 AM Signed Patient presents with: Left Foot - Established Patient, Follow Up, Post Op, Pain AMB ROOMING INTAKE FLOWSHEET DATA Pain Pain Level: 7 Pain Location: Foot-Left Description: Pulsating, Sharp, Sore Duration Amount of Time: 5 Duration Units: Days Frequency: Continuous Patient presents for pain and swelling to the left foot that began 5-6 days ago. Pain is where he previously had neuroma surgery. Some bleeding/drainage from the center of the scar. Shooting pain radiates from lateral foot up the leg. Daja Martin LPN 03/23/2025 7:37 AM Signed UNIVERSAL PROTOCOL / SAFETY CHECKLIST Procedure to be Performed: Incision and drainage, left foot Sign In: A Moment of CARE was completed. Appropriate PPE (Personal Protective Equipment) worn by all providers involved with the procedure. Special equipment not required. Patient/Surrogate Stated/Verified: Patient name, Date of , Relevant allergies, and The intended procedure Time Out: Relevant labs, photos, and/or imaging studies have been reviewed. Intended patient and procedure match the source document(s) (e.g. consent, HANDP, associated studies [imaging, pathology]) match the intended patient and procedure. Consent obtained and matches the intended procedure. Yes. Correct side/site has been marked and visible. Medications required for this procedure are verified. Fire risk assessed and is not applicable. Implants: are not applicable. Sign Out: Specimens are all correctly labeled and sent. All instruments, equipment, possible retained foreign bodies are accounted for. Yes. The post-procedure plan of care has been communicated to the patient or surrogate. Ana Garcia 03/22/2025 11:23 AM Signed You have a very superficial suture abscess of your left foot. This was cleaned out today. A wound culture was performed and I will follow this daily to assure you are on the correct antibiotic Keep this clean and dry. Do not get wet in the shower. Cleanse the foot daily with soap and water. Dry thoroughly Apply a small piece of aquacel to the foot followed by guaze and roll gauze Use leif wrap for compression. Ok to wear sneak provided the combination of dressing and leif fit. If you need anything, please do not hesitate to contact me at the office or my personal cell, Ana Garcia 03/23/2025 7:37 AM Signed Subjective The patient is a 44-year-old male presenting with swelling, erythema, and drainage at the site of a prior neuroma excision on the left foot. The patient underwent neuroma excision between the second and third toes of the left foot on 01/21. The incision healed by early February, and he was reportedly doing well until approximately 5 days ago, when he developed localized pain and erythema at the surgical site. Two nights ago, he noted bleeding from the area after showering, and last night, he observed thicker, oozing drainage. He describes this new pain as distinct from his prior symptoms, with shooting pain radiating to the center of his leg. He also reports difficulty keeping his feet flat when sitting at the table to eat, describing a sensation that almost feels like palsy on the left side. He suspects he may have altered his gait over the past week due to the recent symptoms. He denies any trauma or falls. He has a cat with black hair. He reports a second neuroma that continues to cause discomfort, now described as feeling like a smaller rock rather than little deloris. Musculoskeletal: (+) left foot pain, (+) left foot tenderness, (+) left foot swelling, (+) shooting pain radiating up left leg, (+) left foot pressure with palpation Skin: (+) left foot incision drainage Objective There were no vitals taken for this visit. - Cardiovascular: Dorsalis pedis and posterior tibial pulses palpable bilaterally; capillary refill <5 seconds. - Skin: Surgical incision on the left foot is essentially healed; swelling and slight raised appearance along the proximal incision line, concerning for an underlying suture abscess; no extending erythema noted. - Musculoskeletal: Warm skin temperature from proximal to distal; tenderness noted on palpation of the left foot. Tests AND Prior Procedures: - Surgery for neuroma: Sutures removed approximately 2.5-3 weeks post-op; incision essentially healed by early February; initially doing well postoperatively. Assessment AND Plan # Post-operative state (Z98.890) # Abscess of left foot (L02.612) Patient is status post neuroma excision on January 21, with satisfactory initial healing. Now pre (more content not included)... Normal [facility] XR FOOT 3V AP/LAT/OBL LTon 1 XR FOOT 3V AP/LAT/OBL LT * * *Final Report* * * DATE OF EXAM: Mar 22 2025 12:12PM [id number] - XR FOOT 3V AP/LAT/OBL LT / PROCEDURE REASON: Post-operative state * * * * Physician Interpretation * * * * TITLE: XR FOOT 3V AP/LAT/OBL LT CLINICAL INDICATION: Status post excision of left third interspace neuroma with new pain and swelling. TECHNIQUE: 3 view right atrophic study of the left foot COMPARISON: Radiograph dated 01/21/2025 FINDINGS: No soft tissue gas or radiopaque foreign body. Mild soft tissue thickening in the third webspace. No cortical destruction or periostitis to suggest radiographic evidence of osteomyelitis. No fracture or dislocation. IMPRESSION: Mild soft tissue thickening in the third webspace. No radiographic evidence of osseous abnormality. Rn Gyn: PSCMelida Transcribe Date/Time: Mar 22 2025 12:13P Dictated by : EDE SMITH MD This examination was interpreted and the report reviewed and electronically signed by: EDE SMITH MD on Mar 22 2025 12:14PM EST [id number] Normal [facility] 03-21-2025 CNPN Telephone (PODIWS) DARRELL WISEMAN ([id number]) 1980 Date Time Provider Department 03/21/25 ANA GARCIA PODIWSiddhartha During your visit today, we recorded the following information about you: Maxine Mcduffie LPN 03/21/2025 10:36 AM Signed Patient calling in stating the past 4-5 days he has noticed pain and swelling in his foot where he had surgery. He rates the pain at a 5/6 out of 10. In the last 24 hours he has noticed some bleeding in the top/center of the scar as well. MATHIEU Cain Jessica, LPN 03/22/2025 8:22 AM Signed Patient calling in again this morning. He states the pain is worse today 7 or 8/10 and the pain is now radiating up to his fischer/calf and the pain is sharp. He did not have any bleeding last night but did have some light yellow drainage. He describes the fluid as not infection type yellow. Patient is requesting a call back. MATHIEU Cain Amanda, RN 03/22/2025 9:38 AM Signed Pt scheduled to be seen today Allergies As of Date: 03/21/2025 (No Known Allergies) Date Reviewed: 02/08/2025 Reviewed by: Daja Martin LPN - Fully Assessed Reason for Visit: Patient Update [1234] Prescriptions as of 03/22/2025 - venlafaxine ER (EFFEXOR XR) 75 mg 24 hr capsule Take 1 capsule by mouth every morning. - mirtazapine (REMERON) 15 mg tablet Take 1 tablet by mouth daily at bedtime. - PARoxetine (PAXIL) 20 mg tablet Take 1 tablet by mouth once daily. - busPIRone (BUSPAR) 10 mg tablet Take 1 tablet by mouth three times daily. - ranitidine (ZANTAC) 150 mg tablet Take 150 mg by mouth twice daily. - multivitamin tablet Take 1 tablet by mouth once daily. 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] 12/23/2011 07/23/2013 Folliculitis [L73.9] 07/23/2013 06/01/2019 Anxiety [F41.9] 10/04/2015 Neuroma [D36.10] 12/24/2024 Gastroesophageal reflux disease without esophag*01/06/2025 Encounter Status:Closed by CECI VINES on 03/22/25 [facility] CNOVon 02-08-2025 CNOV Office Visit (PODIWS ) DARRELL WISEMAN ([id number]) 1980 M Date Time Provider Department 02/08/25 8:00 AM ANA GARCIA PODIWS During your visit today, we recorded the following information about you: Daja Martin LPN 02/08/2025 8:30 AM Signed AMB ROOMING INTAKE FLOWSHEET DATA Pain Pain Level: 3 Pain Location: Foot-Left Description: Tenderness Duration Amount of Time: 18 Duration Units: Days Frequency: Intermittent Intervention/Comfort measure: Reposition, Relaxation, Medication Patient presents with: Left Foot - Post Op: S/P Excision of neuroma MATHIEU Zimmer Ana 02/08/2025 8:30 AM Signed DOS: 01/21/25 POD: 18 POV: 3 Surgical side: left This 44 year old presents post op left 3rd interspace neuroma Pain level: 3/10 Vomiting, fever, chills, shortness of breath: none Pain Control: tylenol Weightbearing status: full weightbearing 5.9 - 06/07/2019 PAST MEDICAL HISTORY Diagnosis Date Acid reflux Anxiety Erection pain 07/23/2013 Folliculitis 07/23/2013 Transplant donor evaluation 12/31/2011 Current Outpatient Medications Medication Sig venlafaxine ER (EFFEXOR XR) 75 mg 24 hr capsule Take 1 capsule by mouth every morning. mirtazapine (REMERON) 15 mg tablet Take 1 tablet by mouth daily at bedtime. PARoxetine (PAXIL) 20 mg tablet Take 1 tablet by mouth once daily. (Patient not taking: Reported on 04/27/2024) busPIRone (BUSPAR) 10 mg tablet Take 1 tablet by mouth three times daily. (Patient not taking: Reported on 04/27/2024) ranitidine (ZANTAC) 150 mg tablet Take 150 mg by mouth twice daily. (Patient not taking: Reported on 04/27/2024) multivitamin tablet Take 1 tablet by mouth once daily. No current facility-administered medications for this visit. ALLERGIES No Known Allergies Objective: Incision site is well coapted with no evidence of dehiscence. Suture was removed. Surgical incision is now healed. no erythema and edema surrounding surgical site. No drainage. No lymphadenopathy. No lymphangitis. No surrounding cellulitis. No pain of left 3rd interspace. Slight pain of left 2nd interspace Patient has no pain to palpation of left calf. Negative Ricketts's test. Assessment: (Z98.890) Post-operative state (primary encounter diagnosis) (D36.10) Neuroma Plan: Suture was removed Incision is now healed He can return to regular shoes and progress with activity as tolerated Discussed the neuroma of left 2nd interspace. If this becomes an issue, he is to contact the office and we can discuss options. He states he would be more inclined to proceed with removal. Patient is very happy with outcome VARUN Woods Matthew 02/08/2025 8:24 AM Signed Your incision is now healed Ok to apply lotion to foot Ok to shower Ok to transition back to regular shoe Slowly increase activity as tolerated Allergies As of Date: 02/08/2025 (No Known Allergies) Date Reviewed: 02/08/2025 Reviewed by: Daaj Martin LPN - Fully Assessed Reason for Visit: Post Op [174] Cmt: S/P Excision of neuroma Primary Visit Diagnosis:Post-operat [place] [Z98.890] Other Visit Diagnosis:Neuroma [D36.10] Prescriptions as of 02/08/2025 - venlafaxine ER (EFFEXOR XR) 75 mg 24 hr capsule Take 1 capsule by mouth every morning. - mirtazapine (REMERON) 15 mg tablet Take 1 tablet by mouth daily at bedtime. - PARoxetine (PAXIL) 20 mg tablet Take 1 tablet by mouth once daily. - busPIRone (BUSPAR) 10 mg tablet Take 1 tablet by mouth three times daily. - ranitidine (ZANTAC) 150 mg tablet Take 150 mg by mouth twice daily. - multivitamin tablet Take 1 tablet by mouth once daily. 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] 12/23/2011 07/23/2013 Folliculitis [L73.9] 07/23/2013 06/01/2019 Anxiety [F41.9] 10/04/2015 Neuroma [D36.10] 12/24/2024 Gastroesophageal reflux disease without esophag*01/06/2025 Other instructions from your clinician: Your incision is now healed Ok to apply lotion to foot Ok to shower Ok to transition back to regular shoe Slowly increase activity as tolerated Encounter Status:Closed by ANA GARCIA DPM on 02/08/25 [facility] CNOVon 02-01-2025 CNOV Office Visit (PODIWS ) DARRELL WISEMAN ([id number]) 1980 M Date Time Provider Department 02/01/25 8:30 AM ANA GARCIA During your visit today, we recorded the following information about you: Hanane Maxwell MA 02/01/2025 11:49 AM Signed Patient presents with: Left Foot - Post Op: S/P Excision of neuroma AMB ROOMING INTAKE FLOWSHEET DATA Pain Pain Level: 4 Pain Location: Foot-Left Description: Aching, Pressure, Throbbing Intervention/Comfort measure: Medication, Cold Dressing intact and removed for exam. Sutures intact. No redness or drainage. Has finished taking the antibiotic. He has been NWB with the crutches. Taking Advil as needed. Ana Garcia 02/01/2025 11:49 AM Signed This 44 year old presents post op neuroma excision, left third interspace Pain level: 4/10 Vomiting, fever, chills, shortness of breath: no Pain Control: tylenol Weightbearing status: partial weightbearing 5.9 - 06/07/2019 PAST MEDICAL HISTORY Diagnosis Date Acid reflux Anxiety Erection pain 07/23/2013 Folliculitis 07/23/2013 Transplant donor evaluation 12/31/2011 Current Outpatient Medications Medication Sig venlafaxine ER (EFFEXOR XR) 75 mg 24 hr capsule Take 1 capsule by mouth every morning. mirtazapine (REMERON) 15 mg tablet Take 1 tablet by mouth daily at bedtime. multivitamin tablet Take 1 tablet by mouth once daily. PARoxetine (PAXIL) 20 mg tablet Take 1 tablet by mouth once daily. (Patient not taking: Reported on 04/27/2024) busPIRone (BUSPAR) 10 mg tablet Take 1 tablet by mouth three times daily. (Patient not taking: Reported on 04/27/2024) ranitidine (ZANTAC) 150 mg tablet Take 150 mg by mouth twice daily. (Patient not taking: Reported on 04/27/2024) No current facility-administered medications for this visit. ALLERGIES No Known Allergies Objective: Incision site is well coapted with no evidence of dehiscence. No erythema and minimal edema surrounding surgical site. No drainage. No lymphadenopathy. No lymphangitis. No surrounding cellulitis. Patient has no pain to palpation of left calf. Negative Ricketts's test. Slight pain to left 2nd interspace but no pain to palpation of left 3rd interspace Assessment: (Z98.890) Post-operative state (primary encounter diagnosis) (D36.10) Neuroma Plan: Bandage removed and new dressing applied. Will have patient perform dressing changes every 2-3 days Sutures: will plan for suture removal next week Weightbearing status: weightbearing as tolerated RTC 1 week Of note, he likely has pain in 2nd interspace due to neuroma of 2nd interspace. If pain is still present to 2nd interspace in future, could consider rfa vs neuroma excision of left 2nd interspace. We again discussed the rationale for not doing both interspace at the same time, namely out of concern for vascular compromise. VARUN Woods Matthew 02/01/2025 8:37 AM Signed Your foot looks great 11 days post-op Continue with post-op shoe Ok to apply pressure to foot as long as you are not experiencing pain. Can change bandage every 2 days Apply betadine, adaptic to incision followed by guaze wrap and leif wrap Follow-up next week for suture removal Call if any issues arise. Daja Martin LPN 02/01/2025 11:49 AM Signed Per Darrell Roberson incision was dressed with iodine, adaptic, non adherent, 4 x 4 gauze, 4 in roll gauze and leif wrap and instructed/educated in its application, wear, and care. All questions were answered, and patient was able to demonstrate competence with the necessary skills to utilize the above equipment. Daja Martin LPN Allergies As of Date: 02/01/2025 (No Known Allergies) Date Reviewed: 02/01/2025 Reviewed by: Hanane Maxwell MA - Fully Assessed Reason for Visit: Post Op [174] Cmt: S/P Excision of neuroma Primary Visit Diagnosis:Post-operat [place] [Z98.890] Other Visit Diagnosis:Neuroma [D36.10] Prescriptions as of 02/01/2025 - venlafaxine ER (EFFEXOR XR) 75 mg 24 hr capsule Take 1 capsule by mouth every morning. - mirtazapine (REMERON) 15 mg tablet Take 1 tablet by mouth daily at bedtime. - PARoxetine (PAXIL) 20 mg tablet Take 1 tablet by mouth once daily. - busPIRone (BUSPAR) 10 mg tablet Take 1 tablet by mouth three times daily. - ranitidine (ZANTAC) 150 mg tablet Take 150 mg by mouth twice daily. - multivitamin tablet Take 1 tablet by mouth once daily. 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 Can magdalene (more content not included)... Normal [facility] CNOVon 01-25-2025 CNOV Office Visit (PODIWS ) DARRELL WISEMAN ([id number]) 1980 M Date Time Provider Department 01/25/25 8:30 AM ANA GARCIA PODIWS During your visit today, we recorded the following information about you: Daja Martin LPN 01/25/2025 9:03 AM Signed AMB ROOMING INTAKE FLOWSHEET DATA Pain Pain Level: 4 Pain Location: Foot-Left Description: Aching, Numbness, Pressure, Sharp, Shooting, Stabbing, Tingling Frequency: Continuous Intervention/Comfort measure: Medication, Relaxation, Pillow support, Positioning Patient presents with: Left Foot - Established Patient, Follow Up, Pain, Swelling, Post Op Patient present to office for 4 day s/p excision of neuroma and soft tissues inflammation, left foot. MATHIEU Zimmer Matthew 01/25/2025 8:57 AM Signed You are doing very well s/p neuroma excision Continue with post-op shoe Ok to apply weight to left heel for transfer. As pain improves, can ambulate on foot with surgical shoe Keep incision clean and dry. Do not get wet. Can clean foot with alcohol pad Change bandage every 2-3 days Apply betadine to incision Apply adaptic and guaze over incision Secure with roll guaze and leif wrap If you need anything, please call me. Ana Garcia 01/25/2025 9:03 AM Signed DOS: 01/21/2025 POD: 4 POV: 1 Surgical side: left This 44 year old presents post op neuroma excision, left 3rd interspace Pain level: 4/10 Vomiting, fever, chills, shortness of breath: no Pain Control: percocet prn Weightbearing status: partial weightbearing 5.9 - 06/07/2019 PAST MEDICAL HISTORY Diagnosis Date Acid reflux Anxiety Erection pain 07/23/2013 Folliculitis 07/23/2013 Transplant donor evaluation 12/31/2011 Current Outpatient Medications Medication Sig amoxicillin-clavulana te potassium (AUGMENTIN) 875-125 mg per tablet Take 1 tablet by mouth two times a day for 7 days. oxyCODONE-acetaminoph en (PERCOCET) 5-325 mg tablet Take 1 tablet by mouth every 6 hours as needed for pain for up to 7 days. venlafaxine ER (EFFEXOR XR) 75 mg 24 hr capsule Take 1 capsule by mouth every morning. mirtazapine (REMERON) 15 mg tablet Take 1 tablet by mouth daily at bedtime. multivitamin tablet Take 1 tablet by mouth once daily. PARoxetine (PAXIL) 20 mg tablet Take 1 tablet by mouth once daily. (Patient not taking: Reported on 04/27/2024) busPIRone (BUSPAR) 10 mg tablet Take 1 tablet by mouth three times daily. (Patient not taking: Reported on 04/27/2024) ranitidine (ZANTAC) 150 mg tablet Take 150 mg by mouth twice daily. (Patient not taking: Reported on 04/27/2024) No current facility-administered medications for this visit. ALLERGIES No Known Allergies Objective: Incision site is well coapted with no evidence of dehiscence. Mild erythema and edema surrounding surgical site. No drainage. No lymphadenopathy. No lymphangitis. No surrounding cellulitis. Patient has no pain to palpation of left calf. Negative Ricketts's test. Assessment: (D36.10) Neuroma (primary encounter diagnosis) (Z98.890) Post-operative state Plan: Bandage removed and new dressing applied. Can change bandage every 2-3 days Sutures: will likely remove at 2-3 weeks post-op Weightbearing status: partial weightbearing to heel in surgical shoe as tolerated RTC 1 week Ana Garcia DPM Allergies As of Date: 01/25/2025 (No Known Allergies) Date Reviewed: 01/25/2025 Reviewed by: Daja Martin LPN - Fully Assessed Reason for Visit: Established Patient [175] Follow Up [171] Pain [78] Swelling [205] Post Op [174] Primary Visit Diagnosis:Neuroma [D36.10] Other Visit Diagnosis:Post-operat [place] [Z98.890] Prescriptions as of 01/25/2025 - amoxicillin-clavulana te potassium (AUGMENTIN) 875-125 mg per tablet Take 1 tablet by mouth two times a day for 7 days. - oxyCODONE-acetaminoph en (PERCOCET) 5-325 mg tablet Take 1 tablet by mouth every 6 hours as needed for pain for up to 7 days. - venlafaxine ER (EFFEXOR XR) 75 mg 24 hr capsule Take 1 capsule by mouth every morning. - mirtazapine (REMERON) 15 mg tablet Take 1 tablet by mouth daily at bedtime. - PARoxetine (PAXIL) 20 mg tablet Take 1 tablet by mouth once daily. - busPIRone (BUSPAR) 10 mg tablet Take 1 tablet by mouth three times daily. - ranitidine (ZANTAC) 150 mg tablet Take 150 mg by mouth twice daily. - multivitamin tablet Take 1 tablet by mouth once daily. 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 As pain improves, can ambulate (more content not included)... Normal [facility] 01-21-2025 ALLIED HEALTH HNO ID: [id number] Author: BEATRIZ MATHEW CT Service: Radiology Author Type: Technologist Type: Allied Health Filed: 01/21/2025 12:44 Note Text: Radiology Service Progress Note PATIENT NAME: Darrell Wiseman DATE OF SERVICE: January 21, 2025 TIME: 12:43 PM PATIENT IDENTITY VERIFICATION COMPLETED USING TWO (2) IDENTIFIERS: Name and Date of confirmed by patient verbally. FALL SCREENING: Has the patient had 2 falls in the last year or 1 fall with injury or currently using an Ambulatory Assistive Device (Walker, Cane, Wheelchair, Crutches, etc.)? No PATIENT GENDER DATA: Assigned male at PATIENT RELEVANT IMPLANT DATA REVIEWED: Not Applicable PATIENT PRESENTS WITH AN IMPLANTABLE OR ATTACHED INTERMEDIATE ACCOUNTANT: No RADIOLOGY DEPARTMENT: General X-ray: Exam(s) Completed: Lower Extremity X-Ray(s): Foot, Left PERIPHERAL IV DATA: Not applicable SIGNED BY: ZOILA Fuentes January 21, 2025 12:43 PM [facility] POSTPROC EVALon 025 [facility] POSTPROC EVAL HNO ID: [id number] Author: ELIUD BURNS MD Service: Anesthesiology Author Type: Anesthesiologist Type: Anesthesia Postprocedure Evaluation Filed: 01/21/2025 13:13 Note Text: POST ANESTHESIA EVALUATION NOTE : 1980 Procedure Summary Date: 01/21/25 Room / Location: CT OR02 / CT OR Anesthesia Start: 1042 Anesthesia Stop: 1221 Procedure: EXCISION NEUROMA EXTREMITY LOWER (Left: Foot) Diagnosis: Neuroma (Neuroma [D36.10]) Surgeons: Ana Garcia Responsible Provider: Eliud Burns MD Anesthesia Type: MAC ASA Status: 2 Anesthesia Type: MAC Last Vitals Vitals Value Taken Time BP 147/79 01/21/25 12:56 Temp 36.2 ?C (97.2 ?F) 01/21/25 12:18 Pulse 61 01/21/25 13:11 Resp 18 01/21/25 13:00 SpO2 98 % 01/21/25 13:11 Vitals shown include unfiled device data. Post Anesthesia Patient Status Patient Evaluation: bedside. Anticipated Disposition: phase 2 then home. Neurological Status: aware and responsive. Pulmonary Status: breathing comfortably on room air Airway Control: returned to baseline unsupported. Cardiovascular Status: stable. Pain Management: clinically adequate Postoperative Hydration: acceptable. Intraoperative Events: no significant anesthesia events Post Operative Nausea/Vomiting Status: no significant post operative nausea or vomiting Recommendation: continue current plan of care. Anesthesia Observations No Documentation SIGNATURE: Eliud Burns MD PATIENT NAME: Darrell Wiseman DATE: January 21, 2025 TIME: 1:13 PM CSN: [id number] [facility] ANES PRE-OPon 01-21-2025 ANES PRE-OP HNO ID: [id number] Author: ELIUD BURNS MD Service: Anesthesiology Author Type: Anesthesiologist Type: Anesthesia Preprocedure Evaluation Filed: 01/21/2025 08:04 Note Text: ANESTHESIOLOGY DAY OF SURGERY NOTE : 1980 Procedure Information Date/Time: 01/21/25917 Procedure: EXCISION NEUROMA EXTREMITY LOWER (Left) Location: CT OR02 / CT OR Surgeons: Ana Garcia Estimated body mass index is 29.29 kg/m? as calculated from the following: Height as of 01/06/25: 180.3 cm (5' 11). Weight as of 01/06/25: 95.3 kg (210 lb). Most recent hematocrit and potassium results: Hematocrit 48.4 06/01/2019 Potassium 4.6 06/01/2019 Relevant Problems GI (+) Gastroesophageal reflux disease without esophagitis I - PHYSICAL EVALUATION AIRWAY Patient intubated: No. Tracheostomy tube not present Mallampati: I. TM distance: >3 FB. Neck ROM: full ROM without neurological symptoms. Mouth opening: adequate. Short neck: no. Thick neck: no DENTAL Normal dental observations. Dental findings: teeth intact. II - ANESTHESIA PLAN ASA Score: 2 Anesthetic Plan: MAC The patient is not a current smoker. NPO Status: adequate Beta Parris Monitoring Plan Monitoring plan: standard ASA. Post Procedure Analgesic Plan Postoperative analgesic plan: parenteral or oral opioids and multimodal analgesia. Informed Consent Anesthetic risks, benefits, alternatives, personnel and consent discussed: yes. Patient / Responsible Libertarian agrees to proceed: yes Patient / Surrogate agrees to blood products: blood products not planned DNR status not reviewed with patient and/or family prior to surgery. Significant changes in the patient condition since the History and Physical, not otherwise documented in primary service progress note: no. Potential Anesthesia issues that may suggest increased risk of complications or contraindication to planned procedure: none. Discussed the possibility of lip / dental damage: yes Vitals Value Taken Time BP 134/83 01/21/25 08:01 Pulse 78 01/21/25 08:01 Resp 16 01/21/25 08:01 Temp 36.5 ?C (97.7 ?F) 01/21/25 08:01 SpO2 98 % 01/21/25 08:01 Facility-Administered Medications as of 01/21/2025 Medication Dose Route Frequency lidocaine (PF) 10 mg/mL (1 %) 1-2 mg injection (XYLOCAINE) 0.1-0.2 mL INTRADERMAL PRN lactated ringers iv infusion 5-30 mL/hr INTRAVENOUS CONTINUOUS NaCl 0.9% iv flush bag 20 mL INTRAVENOUS PRN ceFAZolin iv piggyback 2 g in D5W (iso-osmotic) 100 mL (ANCEF) 2 g INTRAVENOUS Pre-Op Once acetaminophen 1,000 mg tab(s) (TYLENOL) 1,000 mg ORAL Pre-Op Once promethazine 12.5 mg tab(s) (PHENERGAN) 12.5 mg ORAL Pre-Op Once famotidine 20 mg injection (PEPCID) 20 mg INTRAVENOUS Pre-Op Once lactated ringers iv infusion 30 mL/hr INTRAVENOUS CONTINUOUS Outpatient Medications as of 01/21/2025 Medication Sig venlafaxine ER (EFFEXOR XR) 75 mg 24 hr capsule Take 1 capsule by mouth every morning. mirtazapine (REMERON) 15 mg tablet Take 1 tablet by mouth daily at bedtime. multivitamin tablet Take 1 tablet by mouth once daily. PARoxetine (PAXIL) 20 mg tablet Take 1 tablet by mouth once daily. (Patient not taking: Reported on 04/27/2024) busPIRone (BUSPAR) 10 mg tablet Take 1 tablet by mouth three times daily. (Patient not taking: Reported on 04/27/2024) ranitidine (ZANTAC) 150 mg tablet Take 150 mg by mouth twice daily. (Patient not taking: Reported on 04/27/2024) I have interviewed and examined the patient. I have reviewed the medical record and/or the pre-anesthesia evaluation, pertinent labs, and test results. This contains updated information obtained within 48 hours of Surgery/Procedure. SIGNATURE: Eliud Burns MD PATIENT NAME: Darrell Wiseman DATE: January 21, 2025 TIME: 8:03 AM CSN: [id number] [facility] BRIEF OP NOTon 01-21-2025 BRIEF OP NOT HNO ID: [id number] Author: ANA GARCIA, ? Service: Podiatry Author Type: Physician Type: Brief Op Note Filed: 01/21/2025 12:19 Note Text: BRIEF OPERATIVE / PROCEDURE NOTE LOG ID: [id number] SURGERY/PROCEDURE DATE: 01/21/2025 INCISION/PROCEDURE START TIME: 11:01 AM INCISION CLOSE/PROCEDURE END TIME: 12:11 PM SURGEON(S)/PROCEDURAL IST(S) AND LOOM CHANGEOVER OPERATOR(S): Surgeons and Role: * Ana Garcia - Primary * Levi Kong DPM - Resident - Assisting Registered Nurse Theatrical Performer: Kenya Maradiaga RN SURGERY/PROCEDURE(S): excision of neuroma, left 3rd interspace ANESTHESIA: Monitored Anesthesia Care FINDINGS: enlarged neuroma with significant bursitis ESTIMATED BLOOD LOSS: 5 mls SPECIMENS: neuroma COMPLICATIONS: None CLOSURE TECHNIQUE: Primary PRE-OP/PRE-PROCEDURE DIAGNOSIS: neuroma, left 3rd interspace POST-OP/POST-PROCEDUR E DIAGNOSIS: Same as Preop Patient was accompanied to the next level of care by a licensed practitioner from the surgical team pending completion of this brief op note (or operative note) SIGNATURE: Ana Garcia DPM PATIENT NAME: Darrell Wiseman DATE: January 21, 2025 TIME: 12:18 PM [facility] HISTORY PHYSICALon HISTORY PHYSICAL HNO ID: [id number] Author: ANA GARCIA, ? Service: Podiatry Author Type: Physician Type: H&P Filed: 01/21/2025 10:36 Note Text: UPDATED HISTORY AND PHYSICAL EXAMINATION SERVICE DATE: 01/21/2025 SERVICE TIME: 10:34 PHYSICAL EXAM MUST BE COMPLETED ON ADMISSION The History and Physical (completed in the past 30 days) has been reviewed and the patient has been examined. The contents accurately reflect the patient's condition with the following additions or revisions since the HANDP was completed. Examination indicates no changes. This HANDP can be found in the Electronic Medical Record dated 01/06/25. Discussed ultrasound results indicating neuroma of left 2nd and 3rd interspace. His pain is in 3rd interspace. I told him if he has pain in 2nd interspace, he may still have pain following this surgery. I discussed options for patient. I offered injection of the neuroma prior to surgery. He states he would like to avoid steroid injection. He has used inserts and this has not helped. He wishes to pursue surgery. I offered referral to my parner for rfa to address both neuroma at the same time. He wishes to pursue neuroma excision of the 3rd interspace, left foot. I discussed possible small ganglion of 3rd toe. I informed patient that if I see a ganglion, I will try to remove but due to my plan to remove from the dorsal approach, I may not see the ganglion. He understands this. He understands that if he has issues in the future, he can have this aspirated Ana Garcia DPM SIGNATURE: Ana Garcia DPM PATIENT NAME: Darrell Wiseman DATE: January 21, 2025 TIME: 10:34 AM [facility] OPERATIVE NOon 01-21-2025 OPERATIVE NO HNO ID: [id number] Author: ANA GARCIA, ? Service: Podiatry Author Type: Physician Type: Operative Report Filed: 01/21/2025 21:46 Note Text: OPERATIVE/PROCEDURE REPORT LOG ID: [id number] SURGERY/PROCEDURE DATE: 01/21/2025 INCISION/PROCEDURE START TIME: 11:01 AM INCISION CLOSE/PROCEDURE END TIME: 12:11 PM SURGEON(S)/PROCEDURAL IST(S) AND LOOM CHANGEOVER OPERATOR(S): Surgeons and Role: * Ana Garcia - Primary * Levi Kong DPM - Resident - Assisting Registered Nurse Theatrical Performer: Kenya Maradiaga RN SURGERY/PROCEDURE(S): Excision of neuroma, left 3rd interspace ANESTHESIA: Monitored Anesthesia Care SURGERY/PROCEDURE DETAILS: Patient is a pleasant 44 year old male who complains of pain to both feet, worse on the left. He has pain to the 2nd and 3rd interspace of both feet but the left 3rd interspace is the area of largest concern. This has been going on for a considerable duration. He has attempted wider shoes and inserts but continues to have pain. Ultrasound recently performed does confirm the presence of neuroma to the left 2nd and left 3rd interspace. I discussed the results of this ultrasound. I discussed options with patient not limited to steroid injection vs ultrasound guided injection to radiofrequency ablation to neuroma excision. I had long discussion regarding each option. I offered this patient a steroid injection but he is not interested in steroid. I also offered this patient RFA with a colleague but this patient has elected to pursue surgical removal of the neuroma of the left 3rd interspace, mainly because he has been dealing with this for the longest time and is not interested in treating with steroid injection. He has elected the surgical excision. I discussed risks of this surgery not limited to infection, pain, swelling, bleeding, slow wound healing, wound dehiscence, cardiac arrest, deep vein thrombosis, RSD, continued pain, loss of toe. I informed patient that since he has neuroma of the left 2nd interspace, he may still have pain following removal of the 3rd interspace neuroma. He understands this. Due to concerns of vascular compromise, I informed him that I would only manage one neuroma at a time. He understands that following the surgery, he is permitted to ambulate with the use of a walker or crutch but due to pain, he most likely will want to keep weight off the foot. All risks and benefits and alternatives have been discussed. This patient consents to proceed with neuroma excision of the left 3rd interspace. I discussed the ultrasound results suggesting small ganglion of the 3rd toe flexor tendon. I told patient that we will not be likely to see this thru a dorsal approach. He has no pain to the plantar 3rd toe. He has elected to monitor. The patient was transferred to the operating room and placed on the operating room table in the supine position. He was identified by name and procedure. He was placed under sedation and an ankle tourniquet was applied to the left foot. The left lower extremity was prepped and draped in the usual aseptic technique. Time out was performed making note of the procedure planned. The left lower extremity was elevated and the tourniquet was elevated. Incision was made using Xray guided approach. An incision approximately 3 cm in length was made within the 3rd interspace. A Carefully planned dissection was performed thru the subcutaneous tissue where all prominent vessels were cauterized as needed. I proceeded with dissection down to the deep transverse intermetatarsal ligament. This was then transected exposing a prominent nerve with prominent fatty attenuation. There was an abundant amount of bursitis. All distal branches were identified and were tagged with hemostats and then transected. I carefully dissected the entire neuroma proximally and then transected along the mid metatarsal level. All inflamed bursae tissue was also excised and sent for pathology evaluation. The use of lamina spreaders aided in retraction of metatarsal to freely expose and dissect the neuroma. The tourniquet was deflated. All bleeding was controlled prior to closure. Hemostasis was achieved with pressure, topical thrombin and gel foam. The wound was then irrigated with normal saline. The deep subcutaneous tissue was reapproximated with 4-0 vicryl. Skin was closed with 3-0 nylon. Intra-op x-rays confirmed no fracture from use of lamina spreaders. The left foot was dressed with betadine soaked adaptic, 4x4 guaze, wily and leif. Patient was transferred to pacu in stable condition. PRE-OP/PRE-PROCEDURE DIAGNOSIS: neuroma, left 3rd interspace POST-OP/POST-PROCEDUR E DIAGNOSIS: Same as Preop ESTIMATED BLOOD LOSS: 5 mls SPECIMENS: neuroma, left foot IMPLANTABLE DEVICES: NONE DRAINS: None COMPLICATIONS: None CLOSURE TECHNIQUE: Primary PARTICIPATION IN SURGERY/PROCEDURE: I/primary surgeon/proceduralist performed the proc (more content not included)... [facility] Pathology biopsy report Ayo (Tiss)on 01-21-2025 AP DISCLAIMER [facility] Comment on above: Order Comment: Speci men Type: TISSUE SPECIMEN Ordering Facility: [facility] Address: [address] [place] [address] Result Comment: Enoc Covington Test (LDT) Disclaimer: Performance characteristics of immunohistochemical, immunofluorescent, and chromogenic in-situ hybridization tests have been determined by the performing laboratory within [facility]'s Leno Vazquez Pathology and Laboratory Medicine Department ([facility], [facility] [place] [place], [facility], [facility], [facility], [facility], or [facility][1]) in a manner consistent with CLIA requirements. One or more of these tests may not have been cleared or approved by the FDA. [facility] is regulated under CLIA as qualified to perform high-complexity testing. These tests are used for clinical purposes. These should not be regarded as investigational or for research. Positive and negative controls stain appropriately. Performed By: #### 6 6121-5 #### [facility] CLIA [id number] [address] [place] [address] [facility] Comment on above: Order Comment: Speci silva Type: TISSUE SPECIMEN Ordering Facility: [facility] Address: [address] [place] [address] Result Comment: Surg [facility] Pathology Report Case: [id number] Authorizing Provider: Ana Garcia Collected: 01/21/2025 10:52 AM Ordering Location: [facility] Surgery Received: 01/21/2025 02:18 PM Pathologist: Terrell Delgado MD Specimen: Soft Tissue (Not otherwise specified), neuroma left foot third interspace Performed By: #### 6 6121-5 #### [facility] CLIA [id number] [address] [place] [address] OF [place] CLINICAL HISTORY Normal [facility] Comment on above: Order Comment: Jerry ascencio Type: TISSUE SPECIMEN Ordering Facility: [facility] Address: [address] [place] [address] Result Comment: Pre- op diagnosis: Neuroma [D36.10] Performed By: #### 6 6121-5 #### [facility] CLIA [id number] [address] [place] [address] [facility] FINAL DIAGNOSIS [facility] Comment on above: Order Comment: Jerry ascencio Type: TISSUE SPECIMEN Ordering Facility: [facility] Address: [address] [place] [address] Result Comment: A. S oft tissue, left foot third interspace, excision: - Mariano's neuroma. at 0726 EDT Performed By: #### 6 6121-5 #### [facility] CLIA [id number] [address] [place] [address] [place] FINAL PERFORMING LAB [facility] Comment on above: Order Comment: Speci men Type: TISSUE SPECIMEN Ordering Facility: [facility] Address: [address] [place] [address] Result Comment: Diag nostic interpretation performed at: [facility], [address] [place] [address], [address]th Floor, [place] [address] CLIA# [id number] [employer] M[employer]: Terrell Delgado MD Performed By: #### 6 6121-5 #### [facility] CLIA [id number] [address] [place] [address] OF [place] GROSS DESCRIPTION [facility] Comment on above: Order Comment: Speci men Type: TISSUE SPECIMEN Ordering Facility: [facility] Address: [address] [place] [address] Result Comment: A. S oft Tissue (Not otherwise specified) Received labeled neuroma left foot third interspace are multiple fragments of do-pink fibrous soft tissue aggregating to 2.2 x 1.8 x 0.4 cm. Totally submitted in formalin in cassette A1. Gross examination performed at [facility], [address] [place] [address] 01/21/25 4:38 PM Performed By: #### 6 6121-5 #### [facility] CLIA [id number] [address] [place] [address] [place] XR FLUOROSCOPYon 01-21-2025 XR FLUOROSCOPY * * *Final Report* * * DATE OF EXAM: Jan 21 2025 12:28PM MDR [id number] - XR FLUOROSCOPY / PROCEDURE REASON: excision of neuroma;LT 3rd * * * * Physician Interpretation * * * * Left foot History: Left foot neuroma Findings: 1 fluoroscopic views submitted. Single fluoroscopic AP image of the LEFT midfoot and forefoot. No dislocation is evident. Please refer to the procedure report. Fluoroscopic Radiation Summary: Plane A, Air Kerma: 2.1 mGy Fluoro time: 0:08 min:sec IMPRESSION: Unremarkable radiograph Rn Gyn: JALIL Transcribe Date/Time: Jan 21 2025 4:41P Dictated by : PROMISE VIRAMONTES MD This examination was interpreted and the report reviewed and electronically signed by: PROMISE VIRAMONTES MD on Jan 21 2025 4:41PM EST [id number] [facility] XR FOOT 3V AP/LAT/OBL LTon 0 01-21-2025 XR FOOT 3V AP/LAT/OBL LT * * *Final Report* * * DATE OF EXAM: Jan 21 2025 12:40PM MDX [id number] - XR FOOT 3V AP/LAT/OBL LT / PROCEDURE REASON: Post-operative / post-procedure assessment * * * * Physician Interpretation * * * * Left foot HISTORY: 44 years old Clinical information: Post-operative / post-procedure assessment POST-OP LEFT THIRD INTERSPACE NEUROMA EXCISION TECHNIQUE: Images: XR FOOT 3V AP/LAT/OBL LT Comparison: None. RESULT: Findings: No evidence of fracture, bony destruction or subluxation. There is a small amount of air on the lateral radiograph evident in the dorsum foot adjacent to the base of the metatarsals. This most likely corresponds to the heterogeneity adjacent to the fourth metatarsal on the AP views. IMPRESSION: No acute bony finding. Rn Gyn: JALIL Transcribe Date/Time: Jan 21 2025 3:00P Dictated by : PROMISE VIRAMONTES MD This examination was interpreted and the report reviewed and electronically signed by: PROMISE VIRAMONTES MD on Jan 21 2025 3:03PM EST [id number] [facility] HISTORY PHYSICALon HISTORY PHYSICAL HNO ID: [id number] Author: LUCY MARINELLI APRN.NUMERICAL CONTROL MACHINE TOOL OPERATOR Service: ? Author Type: Nurse Practitioner Type: H&P Filed: 01/06/2025 08:29 Note Text: [facility] HISTORY AND PHYSICAL EXAMINATION SERVICE DATE: 01/06/2025 SERVICE TIME: 8:29 AM PRIMARY CARE PHYSICIAN: No primary care provider on file. Assessment Patient has the following medical conditions which may affect heath-operative course: 1. Anxiety (F41.9) - Ongoing anxiety, managed with medication. 2. Neuroma (D36.10) - Four neuromas located on the second and third toes of both feet; one on the left foot associated with a cyst and bursitis. - Patient reports pain level of 4/10, impacting ability to run. - Surgical intervention planned to address neuromas and bursitis. 3. Gastroesophageal reflux disease without esophagitis (K21.9) - Occasional acid reflux; previously managed with ranitidine, which was discontinued. - Patient not currently on any medications. Patient is diet-controlled. ANESTHESIA FINDINGS: Intubation History: No history of difficult intubation. No abnormal airway history Significant Anesthesia Considerations: none Airway History: No history of difficult airway No abnormal airway history Hill Activity Status Index: METS: Walk indoors, such as around the house (1.75 METs) Do light work around the house, such as dusting or washing dishes (2.70 METs) Take care of self; that is eating, dressing, bathing, using the toilet (2.75 METs) Walk a block or two on level ground (2.75 METs) Do moderate work around the house, such as vacuuming, sweeping floors, or carrying in groceries (3.50 METs) Do yardwork, such as raking leaves, weeding, or pushing a power mower (4.50 METs) Climb a flight of stairs or walk up a hill (5.50 METs) Participate in moderate recreational activites, such as golf, bowling, dancing, doubles tennis, or throwing a baseball or football (6.00 METs) Participate in strenuous sport, such as swimming, singles tennis, football, basketball, or skiing (7.50 METs) Do heavy work around the house, such as scrubbing floors, lifting or moving heavy furniture (8.00 METs) DASI Score: 44.95 Patient denies any chest pain or undue shortness of breath with the above physical activity. Clinical Frailty Scale: 2. Well STOP-Bang Score: Male patient Denies snoring loudly Denies feeling tired, fatigued, or sleepy during the daytime Has not been observed to stop breathing or choking/gasping during sleep Denies having high blood pressure BMI less than or equal to 35 kg/m2 Patient 50 years old or younger Does not have a large neck STOP-Bang Score: 1 I - PHYSICAL EVALUATION AIRWAY Patient intubated: No. Tracheostomy tube not present Mallampati: II. TM distance: >3 FB. Neck ROM: full ROM without neurological symptoms. Mouth opening: adequate. Short neck: no. Thick neck: no DENTAL Dental findings: teeth intact. II - ANESTHESIA PLAN Anesthetic plan additional comments: *PACC/TCI - anesthesia choice. Beta Parris Monitoring Plan Post Procedure Analgesic Plan Prepared for Surgery: optimally prepared for surgery. CONSULTS: Patient does not require consults for optimization at this time Planned Anesthetic: anesthesia choice The Following Tests/Procedures Have Been Initiated: No orders of the defined types were placed in this encounter. REASON FOR VISIT: Darrell Wiseman is a 44 year old male who is scheduled for Procedure(s): EXCISION NEUROMA EXTREMITY LOWER (Left) at the request of Dr. Ana Garcia for consultation. My final recommendation will be communicated back to the requesting physician by way of shared medical record or letter. Subjective The patient has the following: COVID-19 Immunization Status This patient has no relevant Health Maintenance data. CHIEF COMPLAINT: pre op HPI: Darrell Wiseman is a 44-year-old male, with a history of anxiety, presenting for preoperative evaluation prior to neuroma excision. Darrell is scheduled for neuroma excision on the second and third toes of both feet. He reports chronic pain associated with the neuromas, rating the pain as 4/10. He also has a cyst under one of the neuromas on the left foot and has been informed by his surgeon that there is bursitis present as well. The pain from the neuromas is affecting his ability to walk and run short distances, though he is still able to work out four times a week. REVIEW OF SYSTEMS: General: No weight loss, malaise or fevers. Neurological: Negative for: delirium, dementia, headaches, impaired sensorium, peripheral neuropathy, seizures, TIA and strokes. Respiratory: Negative for: asthma, bronchitis, COPD, current cough, bronchodilator used daily for the last 3 months, dyspnea, home oxygen, orthopnea, pneumonia within 6 weeks, tobacco use, URI < 2 weeks and obstructive sleep apnea. Cardiovascular: Tavon (more content not included)... [facility] CNTHERAPYon 12-24-2024 CNTHERAPY OT/PT/Speech Visit (PTWS) DARRELL WISEMAN ([id number]) 1980 M Date Time Provider Department 12/24/24 7:45 AM MAXINE VILLEDA PTWS Date Time Provider Department Leivasy 12/24/2024 7:45 AM [id number] VILLEDA PTJOHNNY Black Reason for Visit: PT Discharge [682] Visit Diagnosis:Neuroma [D36.10] Allergies As of Date: 12/24/2024 (No Known Allergies) Date Reviewed: 11/23/2024 Reviewed by: Ceci Vines, JOSEPH - Fully Assessed Prescriptions as of 12/24/2024 - venlafaxine ER (EFFEXOR XR) 75 mg 24 hr capsule Take 1 capsule by mouth every morning. - mirtazapine (REMERON) 15 mg tablet Take 1 tablet by mouth daily at bedtime. - PARoxetine (PAXIL) 20 mg tablet Take 1 tablet by mouth once daily. - busPIRone (BUSPAR) 10 mg tablet Take 1 tablet by mouth three times daily. - ranitidine (ZANTAC) 150 mg tablet Take 150 mg by mouth twice daily. - multivitamin tablet Take 1 tablet by mouth once daily. Machine Inker: Addendum Therapy (PT/OT/Speech/Resp) ID: [id number] 12/24/2024 8:05 AM Author: MAXINE VILLEDA Signed by MAXINE VILLEDA PT on 12/24/2024 at 8:05 AM * * * This document replaces document [id number] * * * Document text: Program_ID:[id number] Access Code: [email or web address] URL: [email or web address] Date: 12-24-2024 Prepared By: Maxine Villeda Program Notes Patient Education - Curb Climbing with Crutches - Non Weight Bearing - cc Gait Training Crutches Non Weight Bearing NWB - Sitting AND Standing with Crutches - Non Weight Bearing - Walking with Crutches: Non Weight-Bearing ----- [facility] THERAPY NTon 12-24-2024 THERAPY NT HNO ID: [id number] Author: MAXINE VILLEDA PT Service: ? Author Type: Physical Therapist Type: Therapy (PT/OT/Speech/Resp) Filed: 12/24/2024 08:05 Note Text: Program_ID:[id number] Access Code: [email or web address] URL: [email or web address] Date: 12-24-2024 Prepared By: Maxine Villeda Program Notes Patient Education - Curb Climbing with Crutches - Non Weight Bearing - cc Gait Training Crutches Non Weight Bearing NWB - Sitting AND Standing with Crutches - Non Weight Bearing - Walking with Crutches: Non Weight-Bearing [facility] CNCOon 12-01-2024 CNCO Letter Text [facility] CNPNon 11-29-2024 CNPN Telephone (PODIWS) DARRELL WISEMAN ([id number]) 1980 M Date Time Provider Department 11/29/24 ANA GARCIAIWS During your visit today, we recorded the following information about you: Ana Garcia 11/29/2024 7:59 AM Signed Patient name: Darrell Wiseman* Type of surgery:excision of neuroma, left 3rd interspace Diagnosis: neuroma* Length of surgery:60* min Occupational Therapy Assistant needed: none* Anesthesia: mac Special equipment: Daja Bryan arm, LPN 12/01/2024 10:55 AM Signed Called patient to schedule surgery. No response. Left vm to call back office. Please transfer to podiatry nurse. MATHIEU Zimmer Amelia, LPN 12/01/2024 3:04 PM Signed Patient elected to schedule surgery Excision of neuroma and soft-tissue inflammation, left third interspace on 01/21/2025 at [facility]. Patient was mailed surgical packet including electronic and paper copy of surgical confirmation letter, Hibiclens instruction on how to use product as well as instruction on where to go at [facility]. All post op were scheduled. Patient verbalized understanding of all instructions. Surgery scheduled in [facility]. Daja Martin LPN Allergies As of Date: 11/29/2024 (No Known Allergies) Date Reviewed: 11/23/2024 Reviewed by: Ceci Vines, JOSEPH - Fully Assessed Reason for Visit: Schedule Surgery [1330] Primary Visit Diagnosis:Neuroma [D36.10] Order(s):SURGICAL REQUEST - ELECTIVE (01/2020) [[id number]] Order #: [id number]: 1 Prescriptions as of 01/21/2025 - venlafaxine ER (EFFEXOR XR) 75 mg 24 hr capsule Take 1 capsule by mouth every morning. - mirtazapine (REMERON) 15 mg tablet Take 1 tablet by mouth daily at bedtime. - PARoxetine (PAXIL) 20 mg tablet Take 1 tablet by mouth once daily. - busPIRone (BUSPAR) 10 mg tablet Take 1 tablet by mouth three times daily. - ranitidine (ZANTAC) 150 mg tablet Take 150 mg by mouth twice daily. - multivitamin tablet Take 1 tablet by mouth once daily. 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] 12/23/2011 07/23/2013 Folliculitis [L73.9] 07/23/2013 06/01/2019 Anxiety [F41.9] 10/04/2015 Encounter Status:Closed by DAJA MARTIN on 01/21/25 [facility] CNOVon 11-23-2024 CNOV Office Visit (PODIWS ) DARRELL WISEMAN ([id number]) 1980 Date Time Provider Department 11/23/24 11:15 AM ANA GARCIA PODIWS During your visit today, we recorded the following information about you: Ceci Vines RN 11/23/2024 12:22 PM Signed Patient presents with: Left Foot - Established Patient, Follow Up, Lab AND Test Results Right Foot - Established Patient, Follow Up, Lab AND Test Results AMB ROOMING INTAKE FLOWSHEET DATA Pain Pain Level: 6 Pain Location: Other: See Comment Description: Aching, Burning, Numbness, Pressure, Pulsating, Sharp, Shooting, Sore, Stabbing, Tenderness, Tingling Duration Amount of Time: 2 Duration Units: Months Frequency: Continuous Intervention/Comfort measure: Medication, Relaxation, Exercise Comments: Pain in both feet Patient presents for follow up of US results and bilateral foot neuromas. HANK 10/04/24 Ana Garcia 11/23/2024 12:22 PM Signed Subjective Darrell Wiseman is a 44-year-old male presenting for evaluation of bilateral foot pain. Bilateral Foot Pain: - Pain localized to the big toes and centers of both feet, described as a sensation of fullness, particularly in the big toes. - Pain intensifies by the end of work shifts, around 14:30-15:00. - Discomfort present throughout the day in areas where neuromas were identified. - Recent onset of big toe discomfort, x3 weeks. feels that the pain in his great toe is compensation for what is present between the 2nd and 3rd webspace - Pain is slightly more pronounced in the left foot but generally similar in both feet. - Uncertain if pain is worse when wearing shoes or barefoot. - Darrell has tried insoles in work shoes with minimal relief; recently ordered new insoles but has not tried them yet. - Denies smoking or vaping. - Darrell's mother had a CVA 6 months ago. Musculoskeletal: (+) bilateral foot pain, (+) sensation of fullness in bilateral big toes, (+) sharp pain in left third interspace, (+) clicking sensation in bilateral third interspace Skin: (+) cold feet in winter, (+) episodic toe discoloration turning purple/blue PAST MEDICAL HISTORY Diagnosis Date Acid reflux Anxiety Erection pain 07/23/2013 Folliculitis 07/23/2013 Transplant donor evaluation 12/31/2011 Current Outpatient Medications Medication Sig Dispense Refill venlafaxine ER (EFFEXOR XR) 75 mg 24 hr capsule Take 1 capsule by mouth every morning. mirtazapine (REMERON) 15 mg tablet Take 1 tablet by mouth daily at bedtime. multivitamin tablet Take 1 tablet by mouth once daily. PARoxetine (PAXIL) 20 mg tablet Take 1 tablet by mouth once daily. (Patient not taking: Reported on 04/27/2024) 30 tablet 4 busPIRone (BUSPAR) 10 mg tablet Take 1 tablet by mouth three times daily. (Patient not taking: Reported on 04/27/2024) 90 tablet 4 ranitidine (ZANTAC) 150 mg tablet Take 150 mg by mouth twice daily. (Patient not taking: Reported on 04/27/2024) No current facility-administered medications for this visit. Family History Problem Relation Age of Onset other (Neuropathy [Other]) Father Breast Cancer Mother other (Kidney Cancer [Other]) Mother Objective There were no vitals taken for this visit. - Cardiovascular: Dorsalis pedis and posterior tibial pulses palpable bilaterally; capillary refill <5 seconds. - Skin: Warm to cool temperature from proximal to distal; hair growth present on both feet. - Musculoskeletal: - Bilateral Feet: - Positive Carolyn's click within the bilateral third interspace. - Manual muscle testing 5/5 for dorsiflexion, plantar flexion, and inversion. - Neurological: Protective sensation intact bilaterally. - hammertoe of b/l 5th toe without pain Labs: Tests: Imaging: (10/29) Ultrasound of bilateral feet: - Right foot: - Second interspace Mariano's neuroma measuring 2-3 mm with associated bursitis - Third interspace Mariano's neuroma measuring 4-5 mm with associated bursitis - Left foot: - Second interspace Mariano's neuroma measuring 4-5 mm with associated bursitis - Third interspace Mariano's neuroma measuring 2-3 mm with associated bursitis Assessment AND Plan 1. Neuroma (D36.10) 2. 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 Bursitis of left foot (M77.52) 4. Mariano's neuroma of right foot (G57.61) 5. Bursitis of right foot (M77.51) - Ultrasound on October 29 confirmed Mariano's neuromas and associated bursitis in both feet: - Right foot: Small neuroma (2-3 mm) in the second interspace with bursitis; larger neuroma (4-5 mm) in the third interspace with bursitis. - Left foot: Moderate-sized neuroma (4-5 mm) in the second interspace with bursitis; smaller neuroma (2-3 mm) in the third interspace with bursitis. - Physical exam reveals palpable dorsalis pedis and posterior tibial pulses bilaterally, capillary refill time <5 seconds, warm to cool skin temp (more content not included)... [facility] US FOOT LTon 10-29-2024 FOOT LT * * *Final Report* * * DATE OF EXAM: Oct 29 2024 1:04PM COOKIE 1141 - US FOOT LT / PROCEDURE REASON: Neuroma * * * * Physician Interpretation * * * * MSK_US LEFT SECOND AND THIRD INTERMETATARSAL ULTRASOUND: CLINICAL INFORMATION:Numbness bilateral feet. TECHNIQUE: Liu-scale real-time ultrasound of the plantar and dorsal intermetatarsal space and adjacent joint spaces with dynamic imaging and power Doppler was performed. Images were archived for documentation. COMPARISON: None FINDINGS: SECOND INTERMETATARSAL SPACE: Moderate sized Mariano's neuroma (4-5mm). Mild intermetatarsal bursitis. SECOND MTP JOINT: Joint space appears maintained. No acute plantar plate tear.Plantar plates have an intact appearance. THIRD MTP JOINT: Joint space appears maintained. No acute plantar plate tear.Plantar plates have an intact appearance. There is a small ganglion cyst involving the third flexor tendon. THIRD INTERMETATARSAL SPACE: Small Mariano's neuroma (2-3mm). Mild intermetatarsal bursitis. FOURTH MTP JOINT: Joint space appears maintained. No acute plantar plate tear.Plantar plates have an intact appearance. INTRINSIC MUSCLES: The adjacent intrinsic muscles show no gross abnormality. FLEXOR TENDONS: Flexor tendons at the MTP joints appear intact. IMPRESSION: SECOND AND THIRD INTERMETATARSAL MARIANO'S NEUROMAS. Rn Gyn: JALIL Transcribe Date/Time: Oct 29 2024 1:09P Dictated by : JEWEL HYATT MD This examination was interpreted and the report reviewed and electronically signed by: JEWEL HYATT MD on Oct 29 2024 1:15PM EST [id number] Normal [facility] FOOT RTon 10-29-2024 US FOOT RT * * *Final Report* * * DATE OF EXAM: Oct 29 2024 1:04PM [facility]2 - US FOOT RT / PROCEDURE REASON: Neuroma * * * * Physician Interpretation * * * * MSK_US RIGHT SECOND AND THIRD INTERMETATARSAL ULTRASOUND: CLINICAL INFORMATION:Numbness bilateral feet. TECHNIQUE: Liu-scale real-time ultrasound of the plantar and dorsal intermetatarsal space and adjacent joint spaces with dynamic imaging and power Doppler was performed. Images were archived for documentation. COMPARISON: None FINDINGS: SECOND INTERMETATARSAL SPACE: Small Mariano's neuroma (2-3mm). Mild intermetatarsal bursitis. SECOND MTP JOINT: Joint space appears maintained. No acute plantar plate tear.Plantar plates have an intact appearance. THIRD MTP JOINT: Joint space appears maintained. No acute plantar plate tear.Plantar plates have an intact appearance. THIRD INTERMETATARSAL SPACE: Moderate sized Mariano's neuroma (4-5mm). Mild intermetatarsal bursitis. FOURTH MTP JOINT: Joint space appears maintained. No acute plantar plate tear.Plantar plates have an intact appearance. INTRINSIC MUSCLES: The adjacent intrinsic muscles show no gross abnormality. FLEXOR TENDONS: Flexor tendons at the MTP joints appear intact. IMPRESSION: Second and third intermetatarsal Mariano's neuromas. Rn Gyn: JALIL Transcribe Date/Time: Oct 29 2024 1:06P Dictated by : JEWEL HYATT MD This examination was interpreted and the report reviewed and electronically signed by: JEWEL HYATT MD on Oct 29 2024 1:14PM EST [id number] Normal [facility] CNOVon 10-04-2024 CNOV Office Visit (PODIWS ) DARRELL WISEMAN ([id number]) 1980 M Date Time Provider Department 10/04/24 9:00 AM ANA GARCIA PODIWS During your visit today, we recorded the following information about you: Daja Martin LPN 10/04/2024 9:43 AM Signed AMB ROOMING INTAKE FLOWSHEET DATA Pain Pain Level: 6 Pain Location: Other: See Comment Description: Aching, Burning, Numbness, Pressure, Pulsating, Sharp, Shooting, Stabbing, Tenderness, Throbbing, Tingling, Other: See comment Duration Amount of Time: 6 Duration Units: Months Frequency: Continuous Comments: Continuous pain and numbness in both feet. Bottoms of my feet are very sensitive which is unusual for me. Patient presents with: Left Foot - New, Numbness, Pain Right Foot - New, Numbness, Pain MATHIEU Zimmer Matthew 10/04/2024 9:14 AM Signed Powerstep Original Full length. Can purchase at [employer] and boots,shoes and more here in [place], [employer] in [place] or [place]. Also can find in [place] in [facility] [place]. Powersteps can also be purchased online, starting around $45.00 If you have a metatarsal or dancer pad for your feet apply the pad directly to the insole so you can interchange between your shoes. Find a shoe with a removable insole and take this out and replace with your powerstep insole. Always bring powersteps with you when shopping for shoes so that you can make sure that everything fits well together Daja Martin LPN 10/04/2024 9:[address] Garcia, Darrell was provided with powerstep gel inserts, size 9, and instructed/educated in its application, wear, and care. All questions were answered, and patient was able to demonstrate competence with the necessary skills to utilize the above equipment. MATHIEU Zimmer Matthew 10/04/2024 9:43 AM Signed Subjective Darrell is a 44-year-old male presenting for bilateral toe numbness and pain. Bilateral Toe Numbness and Pain: - Numbness and pain in the second, third, and fourth toes bilaterally x6 months. - Sensation described as feeling like there's something inside of them and liquid in there. - Pain localized underneath the ball of the toes. - Symptoms are bilateral and equally severe. 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 - Pain is severe enough to require sitting down shelter through the workday. - Experiences a sensation of electricity in the feet when lying in bed. - Itching in the toes that is difficult to relieve due to numbness. - Pain is present both when wearing shoes and walking barefoot; unable to walk on rough surfaces without shoes. - Using Dr. Carrion's inserts, which previously provided relief but are no longer effective. - Has been applying a foot cream for neuropathy provided by his father nightly for the past 4 months without relief. - Occasionally takes Tylenol for pain management. - Denies smoking. - Family history of neuropathy in father and brother. - Denies diabetes; was borderline pre-diabetic approximately 5 years ago. - Has not had recent blood tests. Musculoskeletal: (+) bilateral foot pain Neurological: (+) bilateral toe numbness, (+) paresthesias (feet) Skin: (+) toe itching PAST MEDICAL HISTORY Diagnosis Date Acid reflux Anxiety Erection pain 07/23/2013 Folliculitis 07/23/2013 Transplant donor evaluation 12/31/2011 Current Outpatient Medications Medication Sig Dispense Refill venlafaxine ER (EFFEXOR XR) 75 mg 24 hr capsule Take 1 capsule by mouth every morning. mirtazapine (REMERON) 15 mg tablet Take 1 tablet by mouth daily at bedtime. multivitamin tablet Take 1 tablet by mouth once daily. PARoxetine (PAXIL) 20 mg tablet Take 1 tablet by mouth once daily. (Patient not taking: Reported on 04/27/2024) 30 tablet 4 busPIRone (BUSPAR) 10 mg tablet Take 1 tablet by mouth three times daily. (Patient not taking: Reported on 04/27/2024) 90 tablet 4 ranitidine (ZANTAC) 150 mg tablet Take 150 mg by mouth twice daily. (Patient not taking: Reported on 04/27/2024) No current facility-administered medications for this visit. ALLERGIES No Known Allergies Objective There were no vitals taken for this visit. - Cardiovascular: Dorsalis pedis and posterior tibial pulses palpable bilaterally. Capillary refill time <5 seconds. Skin temperature warm to cool. Hair growth present bilaterally. - Skin: No open sores or lesions noted bilaterally; normal color and temperature. - Musculoskeletal: - Feet: - Flat feet with slight pronation. - Slight curling of second and third toes bilaterally. - Pain and swelling in left second and third interspaces. - Pain in right second and third interspaces. - Negative Regulatory Affairs Director's sign in right foot. - Positive Regulatory Affairs Director's sign in left third interspace. - Neurological: - Sensation i (more content not included)... Normal [facility] David 10-04-2024 [facility] Telephone (RULTTB) DARRELL WISEMAN ([id number]) 1980 Date Time Provider Department 10/04/24 PATRICIA DIAZTB During your visit today, we recorded the following information about you: Elton Chavira 10/04/2024 9:37 AM Addendum Visit Type: ANY MSKx2 Visit Length: 90, 100 OR 120 MINUTES Order Name/Protocol: US FOOT RT+LT; MRAIANO'S NEUROMA-EVAL BILATERAL 2ND+3RD IMS FOR NEUROMA Preferred Provider: N/A Comment: Please ask if the patient has ever had any prior surgery to their bilateral second+third toes. If so, upgrade the visit type to an MSK1x2 and notate the surgical hx in the Appointment Note. Location: Depending on the surgical hx, this patient can have this exam performed at any of our four locations. Slot held: N/A Elton Chavira 10/04/2024 10:35 AM Signed Called patient on October 04, 2024 at 10:35 AM to schedule their MSK US exam. No answer, left VM, 1st attempt. Fan Elton 10/05/2024 8:04 AM Signed Called patient on October 05, 2024 at 8:03 AM to schedule their MSK US exam. No answer, left VM, 2nd attempt. Patricia Diaz 10/05/2024 8:10 AM Signed PT scheduled for MSK US on 10/29/24 at 12:45 PM at [facility]. Allergies As of Date: 10/04/2024 (No Known Allergies) Date Reviewed: 10/04/2024 Reviewed by: Daja Martin LPN - Fully Assessed Reason for Visit: Appointment [186] Prescriptions as of 10/05/2024 - venlafaxine ER (EFFEXOR XR) 75 mg 24 hr capsule Take 1 capsule by mouth every morning. - mirtazapine (REMERON) 15 mg tablet Take 1 tablet by mouth daily at bedtime. - PARoxetine (PAXIL) 20 mg tablet Take 1 tablet by mouth once daily. - busPIRone (BUSPAR) 10 mg tablet Take 1 tablet by mouth three times daily. - ranitidine (ZANTAC) 150 mg tablet Take 150 mg by mouth twice daily. - multivitamin tablet Take 1 tablet by mouth once daily. 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] 12/23/2011 07/23/2013 Folliculitis [L73.9] 07/23/2013 06/01/2019 Anxiety [F41.9] 10/04/2015 Encounter Status:Closed by PATRICIA DIAZ on 10/05/24 [facility] CNOVon 04-27-2024 CNOV Office Visit (UCWSTR ) DARRELL WISEMAN ([id number]) 1980 M Date Time Provider Department 04/27/24 7:45 AM EMA BARBOZA [facility] During your visit today, we recorded the following information about you: Temperature Pulse Respiration Blood pressure 97.5 degrees 80/minute 16/minute 144/90 Weight 99.1 kg Ema Barboza, LOW.NUMERICAL CONTROL MACHINE TOOL OPERATOR 04/27/2024 7:57 AM Signed Subjective Ear Pain Associated symptoms include congestion and headaches. Pertinent negatives include no chills, coughing, fever, rash or sore throat. Darrell Wiseman is a 43 year old male who presents with left ear pain since 04/18. He was seen by a different provider on 04/21 and advised to use flonase and allergy relief medication. He has been using these without improvement. He describes left ear pain as pressure and rates pain 4/10. It increases and feels sharp when he chews. He has had some nasal congestion and headaches as well. No fever. Review of Systems Constitutional: Negative for chills and fever. HENT: Positive for congestion. Negative for sore throat. Respiratory: Negative for cough. Cardiovascular: Negative. Skin: Negative for itching and rash. Neurological: Positive for headaches. Negative for dizziness. BP 144/90 Pulse 80 Temp 36.4 ?C (97.5 ?F) Resp 16 Wt 99.1 kg (218 lb 7.6 oz) SpO2 96% BMI 30.47 kg/m? PAST MEDICAL HISTORY Diagnosis Date Acid reflux Anxiety Erection pain 07/23/2013 Folliculitis 07/23/2013 Transplant donor evaluation 12/31/2011 PAST SURGICAL HISTORY Procedure Laterality Date PAST SURGICAL HISTORY OF Extraction of [place] Teeth ALLERGIES Patient has no known allergies. MEDICATIONS venlafaxine ER (EFFEXOR XR) 75 mg 24 hr capsule Take 1 capsule by mouth every morning. mirtazapine (REMERON) 15 mg tablet Take 1 tablet by mouth daily at bedtime. multivitamin tablet Take 1 tablet by mouth once daily. amoxicillin (AMOXIL) 875 mg tablet Take 1 tablet by mouth two times a day for 7 days. PARoxetine (PAXIL) 20 mg tablet Take 1 tablet by mouth once daily. (Patient not taking: Reported on 04/27/2024) busPIRone (BUSPAR) 10 mg tablet Take 1 tablet by mouth three times daily. (Patient not taking: Reported on 04/27/2024) ranitidine (ZANTAC) 150 mg tablet Take 150 mg by mouth twice daily. (Patient not taking: Reported on 04/27/2024) FAMILY HISTORY Problem Relation Age of Onset other (Neuropathy [Other]) Father Breast Cancer Mother other (Kidney Cancer [Other]) Mother Social History Tobacco Use Smoking status: Former Current packs/day: 0.00 Types: Cigarettes Start date: 06/09/2010 Quit date: 06/09/2012 Years since quittin.8 Smokeless tobacco: Former Quit date: 06/09/2001 Substance Use Topics Alcohol use: Yes Comment: Occasionally Drug use: No Objective Physical Exam Vitals and nursing note reviewed. Constitutional: General: He is not in acute distress. Appearance: Normal appearance. He is not ill-appearing. HENT: Right Ear: Tympanic membrane, ear canal and external ear normal. Left Ear: Ear canal and external ear normal. A middle ear effusion is present. Tympanic membrane is injected. Nose: Nose normal. Mouth/Throat: Pharynx: Uvula midline. No oropharyngeal exudate or posterior oropharyngeal erythema. Cardiovascular: Rate and Rhythm: Normal rate and regular rhythm. Heart sounds: Normal heart sounds. Pulmonary: Effort: Pulmonary effort is normal. No respiratory distress. Breath sounds: Normal breath sounds. No wheezing or rales. Musculoskeletal: Cervical back: Neck supple. Lymphadenopathy: Cervical: No cervical adenopathy. Skin: General: Skin is warm and dry. Findings: No erythema or rash. Neurological: Mental Status: He is alert. ASSESSMENT/PLAN: 1. Otitis media with effusion, left - ICD9: 381.4, ICD10: H65.92 - Will begin treatment with as per antibiotic as written, see orders - Supportive care with plenty of fluids, rest, and analgesia prn. - AMOXICILLIN 875 MG TABLET - Follow-up with your PCP in 3-5 days if symptoms have not improved or sooner if symptoms worsen - Discussed red flags and need for immediate medical evaluation if any occur. - Discussed supportive care treatment with fluids, rest and analgesia. - Discussed expected course of illness JEAN Aquino Kathy, APRN.CNP 04/27/2024 7:57 AM Addendum ASSESSMENT/PLAN: 1. Otitis media with effusion, left - ICD9: 381.4, ICD10: H65.92 - Will begin treatment with as per antibiotic as written, see orders - Supportive care with plenty of fluids, rest, and analgesia prn. - AMOXICILLIN 875 MG TABLET - Follow-up with your PCP in 3-5 days if symptoms have not improved or sooner if symptoms worsen - Discussed red flags and need for immediate medical evaluation if any occur. - Discussed supportive care treatment with (more content not included)... Normal [facility] OT General Evaluationon 01-08 OT General Evaluation [facility] Occupational Therapy [facility] [address] [place] [address] [address] [place] [id number] / REHABILITATION SERVICES INITIAL EVALUATION MR#: [id number] Acct: [id number] Name: DARRELL WISEMAN Rep #: [id number] : 1980 43 From: [address] GOMEZ/YAN JenkinsT Referring Dr.: Dr. Narayan Frey MD Status: RE G RCR Insurance: [facility] Eval Date: ANTH Patient's Visit Information Visit Information Visit Information: DARRELL WISEMAN is a 43 year old M, referred to Occupational Therapy by Dr. Narayan Frey MD, with a diagnosis of left LF/RF contusion. Date of Evaluation: 01/19/24 Occupational Therapist: JASON Griggs/Alice, CHT Subjective Subjective: This 43 year old male was seen for OT eval with dx of left RF, LF contusion. Pt states this happened November 29, 2023. Use of a wheel barrel hit his hand hand he thought hit his fingers. At night pain did increase- he would use ice and when he went to urgent care they did give him a brace but this he felt made it worse. Pt works for [employer]. pt states he is limited at work with grabbing or moving material - starts to hurt. Pain left hand: Current Pain Intensity: 2 Pain Intensity Range: 6 ROM MP: right LF 0/95 RF 0/80 left LF 0/80 RF 0/80 PIP: right RF 0/105 LF 0/95 left LF 0/90 RF 0/100 ROM Comments: pt demo with slight limited ROM of left LF and RF motion Strength Manager Sales: right 120# left 70# Lateral Pinch: right 24# left 24# Tripod Pinch: right 22# left 22# Strength Comments: pt demo with a weakness of left stay cutter strength pain with resistive LF Abduction adduction Sensation Sensation Comments: Reports at times tingling in left thumb, IF and MF ( mostly when laying down) Quick DASH-Disab of Arm,Shoulder Hand Quick DASH Score: 35.0000 Goals Goal:: pt will demo a increase in left stay cutter strength by 30# to increase pts IND. with work task by d/c Goal:: pt will report pain no greater than 2/10 with use of left hand with work tasks by d.c Goal:: pt will demo understanding of joint protection and ergo of wrist/finger by end of 1st session to avoid ecxessive finger stretching or trauma by end d/c. Goal:: pt will demo understanding of using kinensio tape to support structures around LF and RF to decrease lateral stress on lig/tendon structures by end of 1st session. Rehabilitation General Assessment: Pt arrives 7 weeks and 2 days from DOI demo with a weakness of left stay cutter strength and soft tissue palpation pain lateral band. Pt would benefit from skilled OT services 1-2x week for next 3 -4 weeks however pt is working out of town and will be unable to attend therapy sessions consistently. Today therapist ed. pt on dx and supportive tape to avoid stress on lateral bands. pt demo understanding. PT to return prior to Dr. mary vieyra to check on pts progress. Rehabilitation Potential: Good Anticipated Interventions Anticipated Interventions: Strengthening, Triggerpoint Release, Modalities, Orthoses, Joint Protection/Energy Conservation, Ergonomic Education, Education re assistive Equipment, Education re Diagnosis and Home Program Visit Plan Frequency: 1-2x /Week Duration: 4 Weeks TEXT: Thank you for the opportunity to evaluate your patient. For Medicare and Medicare HMO plans, please review the plan of care and approve it. It will need to be FAXED BACK to us at [phone] for Medicare purposes. Please let me know if there are questions or concerns regarding this plan of care. Physician Signature: Date : 01/30/24911 CC: Dr. Narayan Frey MD; No Primary Care Physician MK Signed For Medicare only, by signing this I certify the plan of care. Physicians Signature Date Normal [facility] No Panel InformationOrdered By: Dr. Vaughan on 09-06-2022 Troponin I High Sensitivity 6 pg/mL 3.0-78.0 [facility] Comment on above: Please Note: [place] t Units and Gender Specific Reference Ranges. For more information see Policy Stat Procedure [place] High Sensitivity Troponin (TNIH) and attachments. Basophil percentageOrdered B y: Dr. Vaughan on 09-05-2022 Chloride [Moles/Vol] 101 mmol/L 98-107 [facility] Glucose [Mass/Vol] 203 mg/dL 74-106 [facility] Comment on above: Glucose result great er than or equal to 200 mg/dLsuggests DIABETES MELLITUS per A.D.A. criteria. Potassium [Moles/Vol] 3.5 mmol/L 3.5-5.1 [facility] Sodium [Moles/Vol] 138 mmol/L 136-145 [facility] WBC (Bld) [#/Vol] 7.5 10*3/uL 4.4-11.0 [facility] Blood erythrocytes count (nu mber/volume)Ordered By: Dr. Vaughan on 09-05-2022 RBC (Bld) [#/Vol] 4.61 10*6/uL 4.6-6.2 [facility] Blood hemoglobin measurement (mass/volume)Ordered By: Dr. Vaughan on 09-05-2022 Hemoglobin (Bld) [Mass/Vol] 14.6 g/dL 13.0-16.5 [facility] Blood platelet mean volumeOr dered By: Dr. Vaughan on 09-05-2022 Platelet mean volume (Bld) [Entitic vol] 9.3 fL 6.2-12.0 [facility] Determination of erythrocyte mean corpuscular volume (MCV)Ordered By: Dr. Vaughan on 09-05-2022 MCV (RBC) [Entitic vol] 93.1 fL 80-94 [facility] Hematocrit Auto (Bld) [Volum e fraction]Ordered By: Dr. Vaughan on 09-05-2022 Hematocrit (Bld) [Volume fraction] 42.9 % 40-54 [facility] Laboratory - Chemistry and C hemistry - challengeOrdered By: Dr. Vaughan on 09-05-2022 CO2 [Moles/Vol] 28.0 mmol/L 21.0-32.0 [facility] Urea nitrogen/Creatinine [Mass ratio] 18.8 mg/mg 10-20 [facility] Laboratory - Hematology and Cell countsOrdered By: Dr. Vaughan on 09-05-2022 Erythrocyte distribution width (RBC) [Entitic vol] 41.7 fL 35.1-43.9 [facility] Erythrocyte distribution width (RBC) [Ratio] 12.2 % 11.6-14.6 [facility] MCH (RBC) [Entitic mass] 31.7 pg 27.0-32.0 [facility] MCHC Auto (RBC) [Mass/Vol]Or dered By: Dr. Vaughan on 09-05-2022 MCHC (RBC) [Mass/Vol] 34.0 g/dL 32-36 [facility] No Panel InformationOrdered By: Dr. Vaughan on 09-05-2022 Estimated Creatinine Clearance Calc 69.49 ml/min [facility] Estimated GFR (MDRD) Amer 67 mL/min >60 [facility] Comment on above: GFR Calc Estimated GFR (MDRD) Non-Af Amer 55 mL/min >60 [facility] Comment on above: Non- GFR Calc Platelets bldOrdered By: Dr. Vaughan on 09-05-2022 Platelets (Bld) [#/Vol] 237 10*3/uL 150-450 [facility] Serum or plasma calcium jocelyne urement (mass/volume)Ordered By: Dr. Vaughan on 09-05-2022 Calcium [Mass/Vol] 8.7 mg/dL 8.5-10.1 [facility] Serum or plasma creatinine m easurement (mass/volume)Ordered By: Dr. Vaughan on 09-05-2022 Creatinine [Mass/Vol] 1.49 mg/dL 0.70-1.30 [facility] Comment on above: The validity of the calculated GFR & GFRAA in patients over 70 years has not been determined. Clinical correlation is essential. Serum or plasma urea nitroge n measurement (mass/volume)Ordered By: Dr. Vaughan on 09-05-2022 Urea nitrogen [Mass/Vol] 28 mg/dL 7-18 [facility] Thin prep Papanicolaou smear with manual screeningOrdered By: Dr. Vaughan on 09-05-2022 Thin prep Papanicolaou smear with manual screening 9 5-15 [facility] Vital Signs Date Time Vital Sign Value Performing Clinician Facility 01-06-2025 07:57-0400 Body height 180.3 cm Pac 1 Work Phone: [facility] 01-06-2025 07:57-0400 Body mass index (BMI) [Ratio] 29.29 kg/m2 Pac 1 Work Phone: [facility] 01-06-2025 07:57-0400 Body temperature 97.59 [degF] Pac 1 Work Phone: [facility] 01-06-2025 07:57-0400 Body weight 95.25 kg Pac 1 Work Phone: [facility] 01-06-2025 07:57-0400 Diastolic blood pressure 72 mm[Hg] Pacc 1 Work Phone: [facility] 01-06-2025 07:57-0400 Heart rate 98 /min Pacc 1 Work Phone: [facility] 01-06-2025 07:57-0400 Respiratory rate 12 /min Pacc 1 Work Phone: [facility] 01-06-2025 07:57-0400 SaO2% (BldA) [Mass fraction] 98 % Pacc 1 Work Phone: [facility] 01-06-2025 07:57-0400 Systolic blood pressure 110 mm[Hg] Pacc 1 Work Phone: [facility] 04-27-2024 07:39-0500 Body mass index (BMI) [Ratio] 30.47 kg/m2 Ema Praisler-Wood DYE BECK REEL OPERATOR.NUMERICAL CONTROL MACHINE TOOL OPERATOR Work Phone: [facility] 04-27-2024 07:39-0500 Body temperature 97.5 [degF] Ema Praisler-Wood DYE BECK REEL OPERATOR.NUMERICAL CONTROL MACHINE TOOL OPERATOR Work Phone: [facility] 04-27-2024 07:39-0500 Body weight 99.1 kg Ema Praisler-Wood DYE BECK REEL OPERATOR.NUMERICAL CONTROL MACHINE TOOL OPERATOR Work Phone: [facility] 04-27-2024 07:39-0500 Diastolic blood pressure 90 mm[Hg] Ema Praisler-Wood DYE BECK REEL OPERATOR.NUMERICAL CONTROL MACHINE TOOL OPERATOR Work Phone: [facility] 04-27-2024 07:39-0500 Heart rate 80 /min Ema Praisler-Wood DYE BECK REEL OPERATOR.NUMERICAL CONTROL MACHINE TOOL OPERATOR Work Phone: [facility] 04-27-2024 07:39-0500 Respiratory rate 16 /min Ema Praisler-Wood DYE BECK REEL OPERATOR.NUMERICAL CONTROL MACHINE TOOL OPERATOR Work Phone: [facility] 04-27-2024 07:39-0500 SaO2% (BldA) [Mass fraction] 96 % Ema Praisler-Wood DYE BECK REEL OPERATOR.NUMERICAL CONTROL MACHINE TOOL OPERATOR Work Phone: [facility] 04-27-2024 07:39-0500 Systolic blood pressure 144 mm[Hg] Ema Tamra PENA Work Phone: [facility] 03-28-2023 13:01-0400 Body temperature 97.5 [degF] No Primary Care Physician [facility] 03-28-2023 13:01-0400 Diastolic blood pressure 96 mm[Hg] No Primary Care Physician [facility] 03-28-2023 13:01-0400 Heart rate 71 /min No Primary Care Physician [facility] 03-28-2023 13:01-0400 Respiratory rate 18 /min No Primary Care Physician [facility] 03-28-2023 13:01-0400 SaO2% (BldA) [Mass fraction] 98 % No Primary Care Physician [facility] 03-28-2023 13:01-0400 Systolic blood pressure 146 mm[Hg] No Primary Care Physician [facility] 03-28-2023 10:01-0400 Body height 180.34 cm No Primary Care Physician [facility] 03-28-2023 10:01-0400 Body mass index (BMI) [Ratio] 30.1 kg/m2 No Primary Care Physician [facility] 03-28-2023 10:01-0400 Body weight 98 kg No Primary Care Physician [facility] 03-25-2023 15:57-0400 Body mass index (BMI) [Ratio] 30.7 kg/m2 No Primary Care Physician [facility] 03-25-2023 15:57-0400 Body temperature 98 [degF] No Primary Care Physician [facility] 03-25-2023 15:57-0400 Body weight 100.01 kg No Primary Care Physician [facility] 03-25-2023 15:57-0400 Diastolic blood pressure 90 mm[Hg] No Primary Care Physician [facility] 03-25-2023 15:57-0400 Heart rate 79 /min No Primary Care Physician [facility] 03-25-2023 15:57-0400 Respiratory rate 18 /min No Primary Care Physician [facility] 03-25-2023 15:57-0400 SaO2% (BldA) [Mass fraction] 96 % No Primary Care Physician [facility] 03-25-2023 15:57-0400 Systolic blood pressure 150 mm[Hg] No Primary Care Physician [facility] 09-06-2022 03:20-0400 Heart rate 83 /min [facility] 09-06-2022 03:20-0400 Respiratory rate 18 /min [facility] 09-06-2022 03:20-0400 SaO2% (BldA) [Mass fraction] 99 % [facility] 09-05-2022 23:14-0400 Body height 180.34 cm [facility] 09-05-2022 23:14-0400 Body mass index (BMI) [Ratio] 29.9 kg/m2 [facility] 09-05-2022 23:14-0400 Body temperature 97.9 [degF] [facility] 09-05-2022 23:14-0400 Body weight 97.2 kg [facility] 09-05-2022 23:14-0400 Diastolic blood pressure 75 mm[Hg] [facility] 09-05-2022 23:14-0400 Systolic blood pressure 115 mm[Hg] [facility] Encounters Encounter Date Encounter Type Care Provider Facility Start: 03-31-2025 End: 03-31-2025 ambulatory ANA GARCIA Facility:[facility] Start: 03-22-2025 ambulatory ANA GARCIA Facili ty:[facility] Start: 03-22-2025 End: 03-22-2025 ambulatory ANA GARCIA Facility:[facility] Start: 02-08-2025 End: 02-08-2025 Patient encounter procedure Ana Garcia Work Phone: Podiatry Comment on above: Post-operative state (Primary Dx); Neuroma Start: 02-08-2025 End: 02-08-2025 ambulatory ANA GARCIA Facility:[facility] Start: 02-01-2025 End: 02-01-2025 Patient encounter procedure Ana Garcia Work Phone: Podiatry Comment on above: Post-operative state (Primary Dx); Neuroma Start: 02-01-2025 End: 02-01-2025 ambulatory ANA GARCIA Facility:[facility] Start: 01-25-2025 End: 01-25-2025 Patient encounter procedure Ana Garcia Work Phone: Podiatry Comment on above: Neuroma (Primary Dx) ; Post-operative state Start: 01-25-2025 End: 01-25-2025 ambulatory ANA GARCIA Facility:[facility] Start: 01-21-2025 End: 01-21-2025 ambulatory ANA HANEYAKRON Facility:[facility] Start: 01-06-2025 End: 01-06-2025 Admission to establishment [facility] Work Phone: Pre Anesthesia Start: 01-06-2025 End: 01-06-2025 Anesthesia consultation [facility] 1 Work Phone: Pre Anesthesia Comment on above: Anxiety (Primary Dx) ; Neuroma; Gastroesophageal reflux disease without esophagitis Start: 01-06-2025 End: 01-06-2025 ambulatory ANA GARCIA Facility:[facility] Start: 12-24-2024 End: 12-24-2024 ambulatory Maxine Villeda [facility] Comment on above: Neuroma Start: 12-01-2024 End: 01-21-2025 E-mail encounter from caregiver [facility] Provider Pre Anesthesia Start: 12-01-2024 End: 01-21-2025 Patient encounter procedure [facility] Provider Pre Anesthesia Comment on above: PACC Appointment Start: 11-29-2024 End: 01-21-2025 Telephone encounter Ana Garcia Work Phone: Podiatry Comment on above: Schedule Surgery Start: 11-23-2024 End: 11-23-2024 Patient encounter procedure Ana Garcia Work Phone: Podiatry Comment on above: Neuroma (Primary Dx) ; Mariano's neuroma of left foot; Bursitis of left foot; Mariano's neuroma of right foot; Bursitis of right foot Start: 11-23-2024 End: 11-23-2024 ambulatory ANA GARCIA Facility:[facility] Start: 10-30-2024 End: 12-30-2024 Follow-up encounter Ana Garcia Work Phone: Podiatry Start: 10-29-2024 ambulatory ANA GARCIA Facili ty:[facility] Start: 10-04-2024 End: 10-05-2024 Telephone encounter Patricia [facility] Comment on above: Appointment Start: 10-04-2024 End: 10-04-2024 ambulatory ANA GARCIA Facility:[facility] Start: 04-27-2024 End: 04-27-2024 ambulatory MEL WARREN Facility:[facility] Start: 04-27-2024 End: 04-27-2024 Patient encounter procedure Ema Barboza APRN.NUMERICAL CONTROL MACHINE TOOL OPERATOR Work Phone: [facility] Comment on above: Otitis media with ef fusion, left (Primary Dx) Start: 01-30-2024 End: 01-30-2024 ambulatory Narayan Mason Facility:[facility] Start: 03-28-2023 Non-patient / Non-visit No Tila beatriz Care Physician [facility] Start: 03-28-2023 End: 03-28-2023 Admission to same day surgery center No Primary Care Physician [facility] Start: 03-28-2023 End: 03-28-2023 ambulatory No Primary Care Physician [facility] Work Phone: Start: 03-25-2023 End: 03-25-2023 Patient encounter procedure No Primary Care Physician [facility] Work Phone: Start: 09-05-2022 End: 09-06-2022 Emergency department patient visit [facility] Start: 09-26-2021 Refill Deven Whitehead APRN.NUMERICAL CONTROL MACHINE TOOL OPERATOR Work Phone: [facility] Comment on above: Refill Request Start: 09-25-2021 Refill Deven Whitehead APRN.NUMERICAL CONTROL MACHINE TOOL OPERATOR Work Phone: [facility] Comment on above: Refill Request Procedures Date Procedure Procedure Detail Performing Clinician Start: 03-28-2023 Excision No Primary Care Physician Start: 09-05-2022 Plain chest X-ray Start: 06-05-2019 Adult depression screening assessment Deven Whitehead APRN.VAZQUEZ Work Phone: Start: 07-23-2013 Lipid 1996 panel - S jose or Plasma Ema Barboza APRN.VAZQUEZ Work Phone: Plan of Treatment Date Care Activity Detail Author Start: 04-08-2032 Urine microalbumin profile DTaP,Tdap,Td Vaccine (3 - Td or Tdap) [facility] Start: 02-08-2025 End: 02-08-2025 Patient encounter procedure 02/08/2025 8:00 AM EDT Office Visit Podiatry [address] [place], [place] [address] Ana Garcia [address] [place] [address] 18 days s/p Excision of neuroma and soft-tissue inflammation, left third interspace Podiatry Comment on above: 18 days s/p Excision of neuroma and soft-tissue inflammation, left third interspace Start: 02-07-2025 Influenza vaccination [facility] Start: 02-01-2025 End: 02-01-2025 Patient encounter procedure 02/01/2025 8:30 AM EDT Office Visit Podiatry [address] [place] [address] Ana Garcia [address] [place] [address] 11 days s/p Excision of neuroma and soft-tissue inflammation, left third interspace Podiatry Comment on above: 11 days s/p Excision of neuroma and soft-tissue inflammation, left third interspace Start: 01-25-2025 End: 01-25-2025 Patient encounter procedure 01/25/2025 8:30 AM EDT Office Visit Podiatry [address] [place] [address] Ana Garcia [address] [place] [address] 4 days s/p Excision of neuroma and soft-tissue inflammation, left third interspace Podiatry Comment on above: 4 days s/p Excision of neuroma and soft-tissue inflammation, left third interspace Start: 01-21-2025 End: 01-21-2025 Admission to same day surgery center 01/21/2025 12:03 PM EDT - 01/21/2025 1:[address] [facility] [address] [id number] Ana Garcia [address] [place] [address] EXCISION NEUROMA EXTREMITY LOWER [facility] Comment on above: EXCISION NEUROMA EXT REMITY LOWER Start: 01-21-2025 End: 01-21-2025 Excision neuroma sciatic nerve EXCISION NEUROMA EXTREMITY LOWER Neuroma 01/21/2025 12:03 PM EDT ME OR Start: 01-21-2025 Subsequent hospital visit by physician 01/21/2025 12:03 PM EDT Hospital Encounter [facility] [address] [place] [address] Ana Garcia [address] [facility] [place] [place] [address] Neuroma [D36.10] [facility] Surgery Comment on above: Neuroma [D36.10] Start: 01-21-2025 End: 01-21-2025 Excision neuroma sciatic nerve EXCISION NEUROMA EXTREMITY LOWER Neuroma 01/21/2025 10:27 AM EDT ME OR Start: 01-06-2025 End: 01-06-2025 Anesthesia consultation 01/06/2025 8:00 AM EDT PAT Pre Anesthesia [address] [place] [address] 1, [facility] [address] [place] [address] 01/21 DECLINED VV EXCISION NEUROMA EXTREMITY LOWER [1921] - Left Pre Anesthesia Comment on above: 01/21 DECLINED VV EXC ISION NEUROMA EXTREMITY LOWER [1921] - Left Start: 10-29-2024 End: 10-29-2024 Patient encounter procedure 10/29/2024 12:45 PM EDT Appointment Radiology [address] [id number] US FOOT RT+LT; MARIANO'S NEUROMA-EVAL BILATERAL 2ND+3RD IMS FOR NEUROMA Radiology Comment on above: US FOOT RT+LT; [facility] N'S NEUROMA-EVAL BILATERAL 2ND+3RD IMS FOR NEUROMA Start: 02-08-2024 Covid-19 Vaccine ( season) Covid-19 Vaccine ( season) [facility] Start: 02-08-2024 Influenza vaccination Influenza Vacc ine (#1) [facility] Start: 03-28-2023 Patient discharge [facility] Start: 02-07-2022 Influenza vaccination INFLUENZ A (Season Ended) [facility] Start: 06-05-2020 Adult depression screening assessment DEPRESSION SCREENING [facility] Start: 07-23-2019 Urine microalbumin profile DTAP,TDAP,TD (2 - Td or Tdap) [facility] Start: 07-23-2018 Lipid panel Lipid Screening [facility] Start: 07-23-2018 LIPID SCREEN LIPID SCREEN [facility] Start: 2008 HPV Vaccine (1 - 3-d ose SCDM series) HPV Vaccine (1 - 3-dose SCDM series) [facility] Start: 1999 Depression Screening Depression Scre ening [facility] Start: 1986 COVID-19 VACCINE (1) COVID-19 VACCIN E (1) [facility] Patient Education ED Palpitations [facility] Work Phone: Patient referral [facility] Work Phone: Immunizations Immunization Date Immunization Notes Care Provider Fa cility 06-09-2018 influenza virus vacc ine, unspecified formulation Ema Barboza DYE BECK REEL OPERATOR.NUMERICAL CONTROL MACHINE TOOL OPERATOR Work Phone: [facility] 07-23-2009 tetanus toxoid, redu sven diphtheria toxoid, and acellular pertussis vaccine, adsorbed Deven Whitehead DYE BECK REEL OPERATOR.NUMERICAL CONTROL MACHINE TOOL OPERATOR Work Phone: [facility] Payers Date Payer Category Payer Self-pay [id number] 2024 Unknown [id number] 2024 Unknown [id number] 20 2023 Blue Cross Blue Shield [id number] 2023 Unknown ANTHEM BLUE CARD PPO OOS [id number] 2023-Present [phone] [address] [place] [id number] PPO [id number] 2023 Unknown [id number] 2018 Unknown ANTHEM BLUE ACCE SS PPO [id number] 2018-Present [phone] [address] [place] [address] PPO [id number] Unknown ANTHEM [id number] Unknown [id number] Social History Date Type Detail Facility Start: 07-23-2013 End: 04-27-2024 Tobacco smoking status NHIS Ex-smoker [facility] Start: 06-09-2010 End: 06-09-2012 History of tobacco use Current smoker [facility] Start: 07-23-2013 End: 04-27-2024 Tobacco use and exposure Former smokeless tobacco user [facility] End: 06-09-2001 History of tobacco use User of smokeless tobacco [facility] Start: 06-07-2019 End: 11-23-2024 Alcohol intake Current drinker of alcohol (finding) [facility] Start: 06-05-2019 History SDOH Alcohol Frequency 4 [facility] Start: 06-05-2019 History SDOH Alcohol Std Drinks 3 [facility] Start: 12-31-2011 History SDOH Alcohol Comment Occasionally [facility] Start: 06-05-2019 History SDOH Social Connections Mor[employer] 1 [facility] Start: 06-05-2019 History SDOH Social Connections Membership 2 [facility] Start: 06-05-2019 History SDOH Social Connections Living 7 [facility] Start: 06-05-2019 History SDOH Physical Activity DPW 5 [facility] Start: 06-05-2019 Education 17 [facility] Start: 1981 Sex Assigned At Not on file [facility] Start: 09-06-2022 End: 03-27-2023 Tobacco smoking status NHIS Unknown if ever smoked [facility] Start: 1980 Sex Assigned At Male [facility] Start: 06-09-2010 End: 06-09-2012 History of tobacco use Cigarette Smoker [facility] Start: 06-05-2019 End: 10-04-2024 History of Social function [facility] Start: 06-05-2019 End: 10-04-2024 Social connection and isolation panel [facility] Do you belong to any clubs or organizations such as sikhism groups, unions, fraternal or athletic groups, or school groups? No [facility] Are you now , , , , never or living with a partner? Never [facility] How often to you hav e a drink containing alcohol? 2-3 time sa week [facility] How many standard dr inks containing alcohol do you have on a typical day? 5 or 6 [facility] How often do you hav e 6 or more drinks on 1 occasion? Weekly [facility] Start: 05-10-2012 How hard is it for you to pay for the very basics like food, housing, medical care, and heating Not hard at all [facility] Do you feel stress - tense, restless, nervous, or anxious, or unable to sleep at night because your mind is troubled all the time - these days [OSQ] Not at all [facility] (I/We) worried larry er (my/our) food would run out before (I/we) got money to buy more. Never true [facility] Start: 01-06-2025 End: 02-08-2025 Alcoholic beverage intake Ex-drinker (finding) [facility] Start: 01-06-2025 Alcohol Comment quit last october 2023 [facility] Goals Date Patient Goal Desired Activity /State Mental Status Date Assessment Result Facility 03-28-2023 Cognitive function Voice/Name [facility] Work Phone: 09-05-2022 Cognitive function Voice/Name [facility] Work Phone: Clinical Notes 07-23-2013 to 03-31-2025 Patient InstructionsAna Garcia - 02/08/2025 8:10 AM Daja Gandara LPN - 02/08/2025 8:08 AM Daja Gandara LPN - 02/01/2025 9:08 AM EDTTAna paredes - 02/01/2025 8:29 AM EDT Note Date & Type Note Facility 03-31-2025 Note HNO ID: [id number] Author: ANA GARCIA, ? Service: ? Author Type: Physician Type: Progress Notes Filed: 04/02/2025 10:39 Note Text: FOLLOW UP PODIATRIC OFFICE VISIT Chief Complaint: This 44 year old who presents for follow up:left foot neuroma excision Patient presents to clinic for follow-up left foot. Patient underwent neuroma excision in November 2024. His incision healed nicely and was doing well. Recently developed suture abscess. He completed his last dose of the cipro. The wound is now healed. Patient denies any drainage or redness. STill has pain to the plantar aspect of left foot and dorsal aspect of left foot. Worse with standing Patient states the pain is between the left 2nd and 3rd interspace PAIN EVALUATION 03/24/2025 0954 03/31/2025 0800 Pain Level: 8 5 Pain Location: Foot-Left Foot-Left Description: Aching;Sharp;Sore;Stabbing Sharp;Sore;Dull Duration Amount of Time: 1 2 Duration Units: Weeks Weeks Frequency: Continuous Continuous Intervention/Comfort measure: -- Medication Comments: -- tylenol or advil Hemoglobin A1C (POCT) Date Value Ref Range Status 06/07/2019 5.9 (A) 4.2 - 5.6 % Final Comment: Point of care (POC) Hemoglobin A1c (HGBA1C) testing is intended to assess glucose control and provide a management tool for patients known to have diabetes and their healthcare providers. Target HGBA1C levels may depend on specific clinical circumstances. POC HGBA1C is not intended for use as a diagnostic or screening test; laboratory-based testing should be used for diagnostic purposes. The following information is supplemental and may not be applicable to specific diabetes management situations: The POC device siene maker provides a normal range of 4.2% to 6.5% for the HGBA1C POC test. However, the [place] [employer] guidelines indicate that patients with HGBA1C in the range of 5.7% to 6.4% are at increased risk for development of diabetes and that intervention by lifestyle modification may be beneficial. A HGBA1C level greater than or equal to 6.5% is considered diagnostic of diabetes, pending confirmatory testing. Use of HGBA1C testing to evaluate glucose control may not be appropriate for patients with hemoglobin variants or other conditions (e.g. anemia) that alter red blood cell lifespan. PCP: No primary care provider on file. PAST MEDICAL HISTORY Diagnosis Date Acid reflux Anxiety Erection pain 07/23/2013 Folliculitis 07/23/2013 Transplant donor evaluation 12/31/2011 Current Outpatient Medications Medication Sig venlafaxine ER (EFFEXOR XR) 75 mg 24 hr capsule Take 1 capsule by mouth every morning. mirtazapine (REMERON) 15 mg tablet Take 1 tablet by mouth daily at bedtime. multivitamin tablet Take 1 tablet by mouth once daily. PARoxetine (PAXIL) 20 mg tablet Take 1 tablet by mouth once daily. (Patient not taking: Reported on 04/27/2024) busPIRone (BUSPAR) 10 mg tablet Take 1 tablet by mouth three times daily. (Patient not taking: Reported on 04/27/2024) ranitidine (ZANTAC) 150 mg tablet Take 150 mg by mouth twice daily. (Patient not taking: Reported on 04/27/2024) No current facility-administered medications for this visit. ALLERGIES No Known Allergies PAST SURGICAL HISTORY Procedure Laterality Date CYST/MOLE REMOVAL tailbone PAST SURGICAL HISTORY OF Extraction of [place] Teeth Physical Exam: OBJECTIVE: Constitutional: Pt is a well developed 44 year old male who is alert, oriented, cooperative and in no apparent distress. Eyes: Following during examination. No redness or drainage. Respiratory: RR normal and nonlabored. Even breathing. No evidence of distress. Psychology: Patient is engaged during conversation. Normal affect and mood. Does not appear depressed or anxious. NVSI unchanged from previous visit. Dermatological: Surgical incision to left 3rd interspace is no healed again and there is no evidence of cellulitis Musculoskeletal/Orthopaedic: Patient has pain to palpation of left 2nd interspace Patient has mild pain to plantar aspect of left 3rd interspace - carolyn sign to left foot ASSESSMENT: (D36.10) Neuroma (primary encounter diagnosis) (Z98.890) Post-operative state (L02.612) Abscess of left foot PLAN: Reviewed wound culture to recent suture abscess. Gram negative bacteria. Completed course of cipro. The wound is no healed. No need for continued antibiotics Discussed pain in left foot. Cannot exclude some of his pain related to the 2nd interspace bursitis/neuroma. Will have him try oral steroid. Can notify me how he does with the steroid. Can follow-up in 1 month If pain persists, may warrant RFA vs neuroma excision of left 2nd interspace Ana Garcia DPM [facility] 03-31-2025 Note HNO ID: [id number] Author: GIL WYMAN MA Service: ? Author Type: Mail Teller Type: Progress Notes Filed: 04/02/2025 10:39 Note Text: AMB ROOMING INTAKE FLOWSHEET DATA Pain Pain Level: 5 Pain Location: Foot-Left Description: Sharp, Sore, Dull Duration Amount of Time: 2 Duration Units: Weeks Frequency: Continuous Intervention/Comfort measure: Medication Comments: tylenol or advil [facility] 03-23-2025 Note HNO ID: [id number] Author: GRACY KOCH MD Service: ? Author Type: Physician Type: Progress Notes Filed: 03/23/2025 10:50 Note Text: Infectious Disease E-Consult Response In response to your eConsult Infectious Disease request for Darrell Wiseman regarding: Post operative abscess left foot 3rd web space History of present illness provided through requesting provider documentation and current treatment plan was reviewed. Based on the patient history provided, my impression is as follows: Reviewed picture, very superficial changes, X ray mild soft tissue thickening Culture gram negative bacilli --> pending culture To early if Pseudomonas prefer Levofloxacin No recent creatinine in chart rn review appointment needs: No appointment necessary I spent a total of 10 minutes on the date of the service which included chart review, independently interpreting results (not separately reported), reviewed imas and completing clinical documentation. - Not needing synchronous ID visit - Consent for billing documented - At least 10 minutes spent on chart review and providing recommendations: Gracy Koch MD March 23, 2025 [facility] 03-23-2025 Note HNO ID: [id number] Author: ANA GARCIA, ? Service: ? Author Type: Physician Type: Progress Notes Filed: 03/23/2025 07:37 Note Text: Subjective The patient is a 44-year-old male presenting with swelling, erythema, and drainage at the site of a prior neuroma excision on the left foot. The patient underwent neuroma excision between the second and third toes of the left foot on 01/21. The incision healed by early February, and he was reportedly doing well until approximately 5 days ago, when he developed localized pain and erythema at the surgical site. Two nights ago, he noted bleeding from the area after showering, and last night, he observed thicker, oozing drainage. He describes this new pain as distinct from his prior symptoms, with shooting pain radiating to the center of his leg. He also reports difficulty keeping his feet flat when sitting at the table to eat, describing a sensation that almost feels like palsy on the left side. He suspects he may have altered his gait over the past week due to the recent symptoms. He denies any trauma or falls. He has a cat with black hair. He reports a second neuroma that continues to cause discomfort, now described as feeling like a smaller rock rather than little deloris. Musculoskeletal: (+) left foot pain, (+) left foot tenderness, (+) left foot swelling, (+) shooting pain radiating up left leg, (+) left foot pressure with palpation Skin: (+) left foot incision drainage Objective There were no vitals taken for this visit. - Cardiovascular: Dorsalis pedis and posterior tibial pulses palpable bilaterally; capillary refill <5 seconds. - Skin: Surgical incision on the left foot is essentially healed; swelling and slight raised appearance along the proximal incision line, concerning for an underlying suture abscess; no extending erythema noted. - Musculoskeletal: Warm skin temperature from proximal to distal; tenderness noted on palpation of the left foot. Tests AND Prior Procedures: - Surgery for neuroma: Sutures removed approximately 2.5-3 weeks post-op; incision essentially healed by early February; initially doing well postoperatively. Assessment AND Plan # Post-operative state (Z98.890) # Abscess of left foot (L02.612) Patient is status post neuroma excision on January 21, with satisfactory initial healing. Now presents with a superficial suture abscess at the prior incision site, with localized swelling, erythema, and drainage. No evidence of ascending erythema or deep infection on exam. - Discussed the appearance of his left foot. The incision that initially was healed is now raised at the proximal incision. I do have concerns for suture abscess involving deep absorbable suture. I discussed this with patient and we discussed options. I discussed with patient that I feel it is best at this time to debride the raised area of incision, obtain culture and start him on antibiotics. Thereafter, I discussed with patient allowing the resulting wound to heal by secondary intention. I informed patient that if condition fails to improve, may warrant surgical IANDD but I feel that this suture abscess is confined to the superficial aspect of skin. - I injected the left foot with 3 cc of 1% lidocaine plain. The left foot was prepped and draped in the usual aseptic technique. A time out was performed documenting the plan for IANDD of left foot. Using a 15 blade, the incision was debrided along the proximal aspect. There was a very small amount of draingae expressed followed by blood. This was cultured. Spitting absorable suture was identified and removed. The procedure resulted in superficial wound along proximal incision that was approximately 2 mm x 2 mm. This was irrigated with saline. The wound was dressed with aquacel, guaze, and wily and secured with leif. I will have patient clenase the wound daily and will perform local wound care. can use surgical shoe to eliminate pressure to foot. - Obtained wound culture. - Start antibiotic therapy. will place patient on bactrim - Ordered X-ray of the left foot to rule out deeper infection or other pathology. - Discussed risks (infection, bleeding, wound care needs) and rationale for procedure; patient consented to treatment. - Explained that suture abscesses can occur due to breakdown of absorbable sutures (e.g., Vicryl) and are typically superficial. - Reviewed alternative management options, including antibiotics alone or more extensive incision, and rationale for current approach. Recording using ambient AI software for draft documentation of the visit was discussed with the patient/authorized sales support representative; all questions welcomed and answered. Patient/authorized sales support representative agreed to proceed Ana Garcia DPM [facility] 03-22-2025 Note HNO ID: [id number] Author: KONRAD GOODWIN RT(R) Service: ? Author Type: Technologist Type: Progress Notes Filed: 03/22/2025 15:27 Note Text: Radiology Service Progress Note PATIENT NAME: Darrell Wiseman DATE OF SERVICE: March 22, 2025 TIME: 3:26 PM PATIENT IDENTITY VERIFICATION COMPLETED USING TWO (2) IDENTIFIERS: Name and Date of confirmed by patient verbally. FALL SCREENING: Has the patient had 2 falls in the last year or 1 fall with injury or currently using an Ambulatory Assistive Device (Walker, Cane, Wheelchair, Crutches, etc.)? Yes, Patient High Risk for Falls What interventions were put in place to prevent falls during this visit? Increased Observations by Caregivers PATIENT GENDER DATA: Assigned male at PATIENT RELEVANT IMPLANT DATA REVIEWED: Not Applicable PATIENT PRESENTS WITH AN IMPLANTABLE OR ATTACHED INTERMEDIATE ACCOUNTANT: No RADIOLOGY DEPARTMENT: General X-ray: Exam(s) Completed: Lower Extremity X-Ray(s): Foot, Left PERIPHERAL IV DATA: Not applicable SIGNED BY: RT Annette(R) March 22, 2025 3:26 PM [facility] 03-22-2025 Note HNO ID: [id number] Author: DAJA MARTIN LPN Service: ? Author Type: Licensed Nurse Type: Progress Notes Filed: 03/23/2025 07:37 Note Text: UNIVERSAL PROTOCOL / SAFETY CHECKLIST Procedure to be Performed: Incision and drainage, left foot Sign In: A Moment of CARE was completed. Appropriate PPE (Personal Protective Equipment) worn by all providers involved with the procedure. Special equipment not required. Patient/Surrogate Stated/Verified: Patient name, Date of , Relevant allergies, and The intended procedure Time Out: Relevant labs, photos, and/or imaging studies have been reviewed. Intended patient and procedure match the source document(s) (e.g. consent, HANDP, associated studies [imaging, pathology]) match the intended patient and procedure. Consent obtained and matches the intended procedure. Yes. Correct side/site has been marked and visible. Medications required for this procedure are verified. Fire risk assessed and is not applicable. Implants: are not applicable. Sign Out: Specimens are all correctly labeled and sent. All instruments, equipment, possible retained foreign bodies are accounted for. Yes. The post-procedure plan of care has been communicated to the patient or surrogate. [facility] 03-22-2025 Note HNO ID: [id number] Author: CECI VINES RN Service: ? Author Type: Registered Nurse Type: Progress Notes Filed: 03/23/2025 07:37 Note Text: Patient presents with: Left Foot - Established Patient, Follow Up, Post Op, Pain AMB ROOMING INTAKE FLOWSHEET DATA Pain Pain Level: 7 Pain Location: Foot-Left Description: Pulsating, Sharp, Sore Duration Amount of Time: 5 Duration Units: Days Frequency: Continuous Patient presents for pain and swelling to the left foot that began 5-6 days ago. Pain is where he previously had neuroma surgery. Some bleeding/drainage from the center of the scar. Shooting pain radiates from lateral foot up the leg. [facility] 02-08-2025 Instructions Ana Garcia - 02/08/2025 8:24 AM EDT Your incision is now healed Ok to apply lotion to foot Ok to shower Ok to transition back to regular shoe Slowly increase activity as tolerated documented in this encounter [facility] 02-08-2025 Note HNO ID: [id number] Author: ANA GARCIA, ? Service: ? Author Type: Physician Type: Progress Notes Filed: 02/08/2025 08:30 Note Text: DOS: 01/21/25 POD: 18 POV: 3 Surgical side: left This 44 year old presents post op left 3rd interspace neuroma Pain level: 3/10 Vomiting, fever, chills, shortness of breath: none Pain Control: tylenol Weightbearing status: full weightbearing 5.9 - 06/07/2019 PAST MEDICAL HISTORY Diagnosis Date Acid reflux Anxiety Erection pain 07/23/2013 Folliculitis 07/23/2013 Transplant donor evaluation 12/31/2011 Current Outpatient Medications Medication Sig venlafaxine ER (EFFEXOR XR) 75 mg 24 hr capsule Take 1 capsule by mouth every morning. mirtazapine (REMERON) 15 mg tablet Take 1 tablet by mouth daily at bedtime. PARoxetine (PAXIL) 20 mg tablet Take 1 tablet by mouth once daily. (Patient not taking: Reported on 04/27/2024) busPIRone (BUSPAR) 10 mg tablet Take 1 tablet by mouth three times daily. (Patient not taking: Reported on 04/27/2024) ranitidine (ZANTAC) 150 mg tablet Take 150 mg by mouth twice daily. (Patient not taking: Reported on 04/27/2024) multivitamin tablet Take 1 tablet by mouth once daily. No current facility-administered medications for this visit. ALLERGIES No Known Allergies Objective: Incision site is well coapted with no evidence of dehiscence. Suture was removed. Surgical incision is now healed. no erythema and edema surrounding surgical site. No drainage. No lymphadenopathy. No lymphangitis. No surrounding cellulitis. No pain of left 3rd interspace. Slight pain of left 2nd interspace Patient has no pain to palpation of left calf. Negative Ricketts's test. Assessment: (Z98.890) Post-operative state (primary encounter diagnosis) (D36.10) Neuroma Plan: Suture was removed Incision is now healed He can return to regular shoes and progress with activity as tolerated Discussed the neuroma of left 2nd interspace. If this becomes an issue, he is to contact the office and we can discuss options. He states he would be more inclined to proceed with removal. Patient is very happy with outcome Ana Garcia DPM [facility] 02-08-2025 History of Presen t illness Narrative DOS: 01/21/25 POD: 18 POV: 3 Surgical side: left This 44 year old presents post op left 3rd interspace neuroma Pain level: 3/10 Vomiting, fever, chills, shortness of breath: none Pain Control: tylenol Weightbearing status: full weightbearing 5.9 - 06/07/2019 PAST MEDICAL HISTORY Diagnosis Date Acid reflux Anxiety Erection pain 07/23/2013 Folliculitis 07/23/2013 Transplant donor evaluation 12/31/2011 Current Outpatient Medications Medication Sig venlafaxine ER (EFFEXOR XR) 75 mg 24 hr capsule Take 1 capsule by mouth every morning. mirtazapine (REMERON) 15 mg tablet Take 1 tablet by mouth daily at bedtime. PARoxetine (PAXIL) 20 mg tablet Take 1 tablet by mouth once daily. (Patient not taking: Reported on 04/27/2024) busPIRone (BUSPAR) 10 mg tablet Take 1 tablet by mouth three times daily. (Patient not taking: Reported on 04/27/2024) ranitidine (ZANTAC) 150 mg tablet Take 150 mg by mouth twice daily. (Patient not taking: Reported on 04/27/2024) multivitamin tablet Take 1 tablet by mouth once daily. No current facility-administered medications for this visit. ALLERGIES No Known Allergies Objective: Incision site is well coapted with no evidence of dehiscence. Suture was removed. Surgical incision is now healed. no erythema and edema surrounding surgical site. No drainage. No lymphadenopathy. No lymphangitis. No surrounding cellulitis. No pain of left 3rd interspace. Slight pain of left 2nd interspace Patient has no pain to palpation of left calf. Negative Ricketts's test. Assessment: (Z98.890) Post-operative state (primary encounter diagnosis) (D36.10) Neuroma Plan: Suture was removed Incision is now healed He can return to regular shoes and progress with activity as tolerated Discussed the neuroma of left 2nd interspace. If this becomes an issue, he is to contact the office and we can discuss options. He states he would be more inclined to proceed with removal. Patient is very happy with outcome Ana Garcia DPM AMB ROOMING INTAKE FLOWSHEET DATA Pain Pain Level: 3 Pain Location: Foot-Left Description: Tenderness Duration Amount of Time: 18 Duration Units: Days Frequency: Intermittent Intervention/Comfort measure: Reposition, Relaxation, Medication Patient presents with: Left Foot - Post Op: S/P Excision of neuroma Daja Martin LPN documented in this encounter [facility] 02-08-2025 Note HNO ID: [id number] Author: DAJA MARTIN LPN Service: ? Author Type: Licensed Nurse Type: Progress Notes Filed: 02/08/2025 08:30 Note Text: AMB ROOMING INTAKE FLOWSHEET DATA Pain Pain Level: 3 Pain Location: Foot-Left Description: Tenderness Duration Amount of Time: 18 Duration Units: Days Frequency: Intermittent Intervention/Comfort measure: Reposition, Relaxation, Medication Patient presents with: Left Foot - Post Op: S/P Excision of neuroma Daja Martin LPN [facility] 02-01-2025 Note HNO ID: [id number] Author: DAJA MARTIN LPN Service: ? Author Type: Licensed Nurse Type: Progress Notes Filed: 02/01/2025 11:49 Note Text: Per Letitia Robersonshua incision was dressed with iodine, adaptic, non adherent, 4 x 4 gauze, 4 in roll gauze and leif wrap and instructed/educated in its application, wear, and care. All questions were answered, and patient was able to demonstrate competence with the necessary skills to utilize the above equipment. Daja Martin LPN [facility] 02-01-2025 History of Presen t illness Narrative Per Darrell Roberson incision was dressed with iodine, adaptic, non adherent, 4 x 4 gauze, 4 in roll gauze and leif wrap and instructed/educated in its application, wear, and care. All questions were answered, and patient was able to demonstrate competence with the necessary skills to utilize the above equipment. Daja Martin LPN This 44 year old presents post op neuroma excision, left third interspace Pain level: 4/10 Vomiting, fever, chills, shortness of breath: no Pain Control: tylenol Weightbearing status: partial weightbearing 5.9 - 06/07/2019 PAST MEDICAL HISTORY Diagnosis Date Acid reflux Anxiety Erection pain 07/23/2013 Folliculitis 07/23/2013 Transplant donor evaluation 12/31/2011 Current Outpatient Medications Medication Sig venlafaxine ER (EFFEXOR XR) 75 mg 24 hr capsule Take 1 capsule by mouth every morning. mirtazapine (REMERON) 15 mg tablet Take 1 tablet by mouth daily at bedtime. multivitamin tablet Take 1 tablet by mouth once daily. PARoxetine (PAXIL) 20 mg tablet Take 1 tablet by mouth once daily. (Patient not taking: Reported on 04/27/2024) busPIRone (BUSPAR) 10 mg tablet Take 1 tablet by mouth three times daily. (Patient not taking: Reported on 04/27/2024) ranitidine (ZANTAC) 150 mg tablet Take 150 mg by mouth twice daily. (Patient not taking: Reported on 04/27/2024) No current facility-administered medications for this visit. ALLERGIES No Known Allergies Objective: Incision site is well coapted with no evidence of dehiscence. No erythema and minimal edema surrounding surgical site. No drainage. No lymphadenopathy. No lymphangitis. No surrounding cellulitis. Patient has no pain to palpation of left calf. Negative Ricketts's test. Slight pain to left 2nd interspace but no pain to palpation of left 3rd interspace Assessment: (Z98.890) Post-operative state (primary encounter diagnosis) (D36.10) Neuroma Plan: Bandage removed and new dressing applied. Will have patient perform dressing changes every 2-3 days Sutures: will plan for suture removal next week Weightbearing status: weightbearing as tolerated RTC 1 week Of note, he likely has pain in 2nd interspace due to neuroma of 2nd interspace. If pain is still present to 2nd interspace in future, could consider rfa vs neuroma excision of left 2nd interspace. We again discussed the rationale for not doing both interspace at the same time, namely out of concern for vascular compromise. Ana Garcia DPM Patient presents with: Left Foot - Post Op: S/P Excision of neuroma AMB ROOMING INTAKE FLOWSHEET DATA Pain Pain Level: 4 Pain Location: Foot-Left Description: Aching, Pressure, Throbbing Intervention/Comfort measure: Medication, Cold Dressing intact and removed for exam. Sutures intact. No redness or drainage. Has finished taking the antibiotic. He has been NWB with the crutches. Taking Advil as needed. documented in this encounter [facility] 02-01-2025 Instructions Ana Garcia - 02/01/2025 8:37 AM EDT Your foot looks great 11 days post-op Continue with post-op shoe Ok to apply pressure to foot as long as you are not experiencing pain. Can change bandage every 2 days Apply betadine, adaptic to incision followed by guaze wrap and leif wrap Follow-up next week for suture removal Call if any issues arise. documented in this encounter [facility] 02-01-2025 Note HNO ID: [id number] Author: ANA GARCIA, ? Service: ? Author Type: Physician Type: Progress Notes Filed: 02/01/2025 11:49 Note Text: This 44 year old presents post op neuroma excision, left third interspace Pain level: 4/10 Vomiting, fever, chills, shortness of breath: no Pain Control: tylenol Weightbearing status: partial weightbearing 5.9 - 06/07/2019 PAST MEDICAL HISTORY Diagnosis Date Acid reflux Anxiety Erection pain 07/23/2013 Folliculitis 07/23/2013 Transplant donor evaluation 12/31/2011 Current Outpatient Medications Medication Sig venlafaxine ER (EFFEXOR XR) 75 mg 24 hr capsule Take 1 capsule by mouth every morning. mirtazapine (REMERON) 15 mg tablet Take 1 tablet by mouth daily at bedtime. multivitamin tablet Take 1 tablet by mouth once daily. PARoxetine (PAXIL) 20 mg tablet Take 1 tablet by mouth once daily. (Patient not taking: Reported on 04/27/2024) busPIRone (BUSPAR) 10 mg tablet Take 1 tablet by mouth three times daily. (Patient not taking: Reported on 04/27/2024) ranitidine (ZANTAC) 150 mg tablet Take 150 mg by mouth twice daily. (Patient not taking: Reported on 04/27/2024) No current facility-administered medications for this visit. ALLERGIES No Known Allergies Objective: Incision site is well coapted with no evidence of dehiscence. No erythema and minimal edema surrounding surgical site. No drainage. No lymphadenopathy. No lymphangitis. No surrounding cellulitis. Patient has no pain to palpation of left calf. Negative Ricketts's test. Slight pain to left 2nd interspace but no pain to palpation of left 3rd interspace Assessment: (Z98.890) Post-operative state (primary encounter diagnosis) (D36.10) Neuroma Plan: Bandage removed and new dressing applied. Will have patient perform dressing changes every 2-3 days Sutures: will plan for suture removal next week Weightbearing status: weightbearing as tolerated RTC 1 week Of note, he likely has pain in 2nd interspace due to neuroma of 2nd interspace. If pain is still present to 2nd interspace in future, could consider rfa vs neuroma excision of left 2nd interspace. We again discussed the rationale for not doing both interspace at the same time, namely out of concern for vascular compromise. Ana Garcia DPM [facility] 02-01-2025 Note HNO ID: [id number] Author: HANANE MAXWELL MA Service: ? Author Type: Mail Teller Type: Progress Notes Filed: 02/01/2025 11:49 Note Text: Patient presents with: Left Foot - Post Op: S/P Excision of neuroma AMB ROOMING INTAKE FLOWSHEET DATA Pain Pain Level: 4 Pain Location: Foot-Left Description: Aching, Pressure, Throbbing Intervention/Comfort measure: Medication, Cold Dressing intact and removed for exam. Sutures intact. No redness or drainage. Has finished taking the antibiotic. He has been NWB with the crutches. Taking Advil as needed. [facility] 01-25-2025 Note HNO ID: [id number] Author: ANA GARCIA, ? Service: ? Author Type: Physician Type: Progress Notes Filed: 01/25/2025 09:03 Note Text: DOS: 01/21/2025 POD: 4 POV: 1 Surgical side: left This 44 year old presents post op neuroma excision, left 3rd interspace Pain level: 4/10 Vomiting, fever, chills, shortness of breath: no Pain Control: percocet prn Weightbearing status: partial weightbearing 5.9 - 06/07/2019 PAST MEDICAL HISTORY Diagnosis Date Acid reflux Anxiety Erection pain 07/23/2013 Folliculitis 07/23/2013 Transplant donor evaluation 12/31/2011 Current Outpatient Medications Medication Sig amoxicillin-clavulanate potassium (AUGMENTIN) 875-125 mg per tablet Take 1 tablet by mouth two times a day for 7 days. oxyCODONE-acetaminophen (PERCOCET) 5-325 mg tablet Take 1 tablet by mouth every 6 hours as needed for pain for up to 7 days. venlafaxine ER (EFFEXOR XR) 75 mg 24 hr capsule Take 1 capsule by mouth every morning. mirtazapine (REMERON) 15 mg tablet Take 1 tablet by mouth daily at bedtime. multivitamin tablet Take 1 tablet by mouth once daily. PARoxetine (PAXIL) 20 mg tablet Take 1 tablet by mouth once daily. (Patient not taking: Reported on 04/27/2024) busPIRone (BUSPAR) 10 mg tablet Take 1 tablet by mouth three times daily. (Patient not taking: Reported on 04/27/2024) ranitidine (ZANTAC) 150 mg tablet Take 150 mg by mouth twice daily. (Patient not taking: Reported on 04/27/2024) No current facility-administered medications for this visit. ALLERGIES No Known Allergies Objective: Incision site is well coapted with no evidence of dehiscence. Mild erythema and edema surrounding surgical site. No drainage. No lymphadenopathy. No lymphangitis. No surrounding cellulitis. Patient has no pain to palpation of left calf. Negative Ricketts's test. Assessment: (D36.10) Neuroma (primary encounter diagnosis) (Z98.890) Post-operative state Plan: Bandage removed and new dressing applied. Can change bandage every 2-3 days Sutures: will likely remove at 2-3 weeks post-op Weightbearing status: partial weightbearing to heel in surgical shoe as tolerated RTC 1 week Ana Garica DPM [facility] 01-25-2025 History of Presen t illness Narrative DOS: 01/21/2025 POD: 4 POV: 1 Surgical side: left This 44 year old presents post op neuroma excision, left 3rd interspace Pain level: 4/10 Vomiting, fever, chills, shortness of breath: no Pain Control: percocet prn Weightbearing status: partial weightbearing 5.9 - 06/07/2019 PAST MEDICAL HISTORY Diagnosis Date Acid reflux Anxiety Erection pain 07/23/2013 Folliculitis 07/23/2013 Transplant donor evaluation 12/31/2011 Current Outpatient Medications Medication Sig amoxicillin-clavulanate potassium (AUGMENTIN) 875-125 mg per tablet Take 1 tablet by mouth two times a day for 7 days. oxyCODONE-acetaminophen (PERCOCET) 5-325 mg tablet Take 1 tablet by mouth every 6 hours as needed for pain for up to 7 days. venlafaxine ER (EFFEXOR XR) 75 mg 24 hr capsule Take 1 capsule by mouth every morning. mirtazapine (REMERON) 15 mg tablet Take 1 tablet by mouth daily at bedtime. multivitamin tablet Take 1 tablet by mouth once daily. PARoxetine (PAXIL) 20 mg tablet Take 1 tablet by mouth once daily. (Patient not taking: Reported on 04/27/2024) busPIRone (BUSPAR) 10 mg tablet Take 1 tablet by mouth three times daily. (Patient not taking: Reported on 04/27/2024) ranitidine (ZANTAC) 150 mg tablet Take 150 mg by mouth twice daily. (Patient not taking: Reported on 04/27/2024) No current facility-administered medications for this visit. ALLERGIES No Known Allergies Objective: Incision site is well coapted with no evidence of dehiscence. Mild erythema and edema surrounding surgical site. No drainage. No lymphadenopathy. No lymphangitis. No surrounding cellulitis. Patient has no pain to palpation of left calf. Negative Ricketts's test. Assessment: (D36.10) Neuroma (primary encounter diagnosis) (Z98.890) Post-operative state Plan: Bandage removed and new dressing applied. Can change bandage every 2-3 days Sutures: will likely remove at 2-3 weeks post-op Weightbearing status: partial weightbearing to heel in surgical shoe as tolerated RTC 1 week Ana Garcia DPM AMB ROOMING INTAKE FLOWSHEET DATA Pain Pain Level: 4 Pain Location: Foot-Left Description: Aching, Numbness, Pressure, Sharp, Shooting, Stabbing, Tingling Frequency: Continuous Intervention/Comfort measure: Medication, Relaxation, Pillow support, Positioning Patient presents with: Left Foot - Established Patient, Follow Up, Pain, Swelling, Post Op Patient present to office for 4 day s/p excision of neuroma and soft tissues inflammation, left foot. Daja Martin LPN documented in this encounter [facility] 01-25-2025 Instructions Ana Garcia - 01/25/2025 8:57 AM EDT You are doing very well s/p neuroma excision Continue with post-op shoe Ok to apply weight to left heel for transfer. As pain improves, can ambulate on foot with surgical shoe Keep incision clean and dry. Do not get wet. Can clean foot with alcohol pad Change bandage every 2-3 days Apply betadine to incision Apply adaptic and guaze over incision Secure with roll guaze and leif wrap If you need anything, please call me. documented in this encounter [facility] 01-25-2025 Note HNO ID: [id number] Author: DAJA MARTIN LPN Service: ? Author Type: Licensed Nurse Type: Progress Notes Filed: 01/25/2025 09:03 Note Text: AMB ROOMING INTAKE FLOWSHEET DATA Pain Pain Level: 4 Pain Location: Foot-Left Description: Aching, Numbness, Pressure, Sharp, Shooting, Stabbing, Tingling Frequency: Continuous Intervention/Comfort measure: Medication, Relaxation, Pillow support, Positioning Patient presents with: Left Foot - Established Patient, Follow Up, Pain, Swelling, Post Op Patient present to office for 4 day s/p excision of neuroma and soft tissues inflammation, left foot. Daja Martin LPN [facility] 01-06-2025 History and physical note Images from the original note were not included. [facility] HISTORY AND PHYSICAL EXAMINATION SERVICE DATE: 01/06/2025 SERVICE TIME: 8:29 AM PRIMARY CARE PHYSICIAN: No primary care provider on file. Assessment Patient has the following medical conditions which may affect heath-operative course: 1. Anxiety (F41.9) - Ongoing anxiety, managed with medication. 2. Neuroma (D36.10) - Four neuromas located on the second and third toes of both feet; one on the left foot associated with a cyst and bursitis. - Patient reports pain level of 4/10, impacting ability to run. - Surgical intervention planned to address neuromas and bursitis. 3. Gastroesophageal reflux disease without esophagitis (K21.9) - Occasional acid reflux; previously managed with ranitidine, which was discontinued. - Patient not currently on any medications. Patient is diet-controlled. ANESTHESIA FINDINGS: Intubation History: No history of difficult intubation. No abnormal airway history Significant Anesthesia Considerations: none Airway History: No history of difficult airway No abnormal airway history Hill Activity Status Index: METS: Walk indoors, such as around the house (1.75 METs) Do light work around the house, such as dusting or washing dishes (2.70 METs) Take care of self; that is eating, dressing, bathing, using the toilet (2.75 METs) Walk a block or two on level ground (2.75 METs) Do moderate work around the house, such as vacuuming, sweeping floors, or carrying in groceries (3.50 METs) Do yardwork, such as raking leaves, weeding, or pushing a power mower (4.50 METs) Climb a flight of stairs or walk up a hill (5.50 METs) Participate in moderate recreational activites, such as golf, bowling, dancing, doubles tennis, or throwing a baseball or football (6.00 METs) Participate in strenuous sport, such as swimming, singles tennis, football, basketball, or skiing (7.50 METs) Do heavy work around the house, such as scrubbing floors, lifting or moving heavy furniture (8.00 METs) DASI Score: 44.95 Patient denies any chest pain or undue shortness of breath with the above physical activity. Clinical Frailty Scale: 2. Well STOP-Bang Score: Male patient Denies snoring loudly Denies feeling tired, fatigued, or sleepy during the daytime Has not been observed to stop breathing or choking/gasping during sleep Denies having high blood pressure BMI less than or equal to 35 kg/m^2 Patient 50 years old or younger Does not have a large neck STOP-Bang Score: 1 I - PHYSICAL EVALUATION AIRWAY Patient intubated: No. Tracheostomy tube not present Mallampati: II. TM distance: >3 FB. Neck ROM: full ROM without neurological symptoms. Mouth opening: adequate. Short neck: no. Thick neck: no DENTAL Dental findings: teeth intact. II - ANESTHESIA PLAN Anesthetic plan additional comments: *PACC/TCI - anesthesia choice. Beta Parris Monitoring Plan Post Procedure Analgesic Plan Prepared for Surgery: optimally prepared for surgery. CONSULTS: Patient does not require consults for optimization at this time Planned Anesthetic: anesthesia choice The Following Tests/Procedures Have Been Initiated: No orders of the defined types were placed in this encounter. REASON FOR VISIT: Darrell Wiseman is a 44 year old male who is scheduled for Procedure(s): EXCISION NEUROMA EXTREMITY LOWER (Left) at the request of Dr. Ana Garcia for consultation. My final recommendation will be communicated back to the requesting physician by way of shared medical record or letter. Subjective The patient has the following: COVID-19 Immunization Status This patient has no relevant Health Maintenance data. CHIEF COMPLAINT: pre op HPI: Darrell Wiseman is a 44-year-old male, with a history of anxiety, presenting for preoperative evaluation prior to neuroma excision. Darrell is scheduled for neuroma excision on the second and third toes of both feet. He reports chronic pain associated with the neuromas, rating the pain as 4/10. He also has a cyst under one of the neuromas on the left foot and has been informed by his surgeon that there is bursitis present as well. The pain from the neuromas is affecting his ability to walk and run short distances, though he is still able to work out four times a week. REVIEW OF SYSTEMS: General: No weight loss, malaise or fevers. Neurological: Negative for: delirium, dementia, headaches, impaired sensorium, peripheral neuropathy, seizures, TIA and strokes. Respiratory: Negative for: asthma, bronchitis, COPD, current cough, bronchodilator used daily for the last 3 months, dyspnea, home oxygen, orthopnea, pneumonia within 6 weeks, tobacco use, URI < 2 weeks and obstructive sleep apnea. Cardiovascular: Denies any heart palpitations, edema, chest pain, shortness of breath, syncope, activity intolerance, or dizziness. Negative for: abdominal aortic aneurysm, AICD/PPM, angina, anticoagulation therapy, arrhythmia, atrial fibrillation, CAD, chest pain, CHF, congenital heart defect, DVT/PE, hyperlipidemia, hypertension, recent MA, murmur/valvular heart disease, PTCA, PVD, open heart surgery and valve surgery. GI: Positive for: GERD Negative for: abdominal pain, GI bleed <30 days, hepatitis, liver disease, nausea, vomiting and ETOH >2 drinks/day. : denies CKD Negative for: on dialysis, dysuria, flank pain, frequent urination, hematuria, renal failure and urinary tract infection. Endocrine: Negative for: diabetes mellitus, hyperthyroidism and hypothyroidism. Hematology: Negative for: anemia, bruises/bleeds easily, factor V Leiden, hemophilia, thrombocytopenia, von Willebrand disease, transfusion of at least 4 units within 72 hours prior to surgery and chronic anti-coagulation/platelet meds. Oncology: Negative for: CA metastasis, chemo within 30 days, disseminated cancer and radiotherapy within 90 days. Psych: Positive for: anxiety. Musculoskeletal: See HPI. Skin: Negative for lesions, rash and itching. Implanted Devices: No implanted devices. PAST MEDICAL HISTORY Diagnosis Date Acid reflux Anxiety Erection pain 07/23/2013 Folliculitis 07/23/2013 Transplant donor evaluation 12/31/2011 PAST SURGICAL HISTORY Procedure Laterality Date CYST/MOLE REMOVAL tailbone PAST SURGICAL HISTORY OF Extraction of [place]eth FAMILY HISTORY Problem Relation Age of Onset Breast Cancer Mother other (Kidney Cancer [Other]) Mother other (Neuropathy [Other]) Father Anesthesia Problems No Family History Social History Tobacco Use Smoking status: Former Current packs/day: 0.00 Types: Cigarettes Start date: 06/09/2010 Quit date: 06/09/2012 Years since quittin.5 Smokeless tobacco: Former Quit date: 06/09/2001 Vaping Use Vaping status: Never Used Substance Use Topics Alcohol use: Not Currently Comment: quit last october 2023 Drug use: No Prior to Admission medications as of 01/06/25 0813 Medication Sig Last Dose Taking venlafaxine ER (EFFEXOR XR) 75 mg 24 hr capsule Take 1 capsule by mouth every morning. Yes mirtazapine (REMERON) 15 mg tablet Take 1 tablet by mouth daily at bedtime. Yes multivitamin tablet Take 1 tablet by mouth once daily. Yes PARoxetine (PAXIL) 20 mg tablet Take 1 tablet by mouth once daily. Patient not taking: Reported on 04/27/2024 busPIRone (BUSPAR) 10 mg tablet Take 1 tablet by mouth three times daily. Patient not taking: Reported on 04/27/2024 ranitidine (ZANTAC) 150 mg tablet Take 150 mg by mouth twice daily. Patient not taking: Reported on 04/27/2024 No medication comments found. ALLERGIES No Known Allergies Objective PHYSICAL EXAM: General: alert and oriented and healthy appearance. Pertinent negatives noted - not distressed. Skin: normal color, no rash or lesions. HEENT: EOM intact, pupils equal round and pupils reactive to light. Pertinent negatives noted - no carotid bruit. Cardiovascular: regular rate and rhythm, normal S1 and S2, no rub, murmurs, or gallop. Respiratory: normal breath sounds, no wheezes or crackles. No chest wall deformity or tenderness. Abdomen: bowel sounds present and soft. Pertinent negatives noted - not tender. Extremities: no deformity, no edema or tenderness, no joint swelling or clubbing. Neurological: normal cognition and motor skills. Gait normal. No weakness or sensory deficit. PAIN ASSESSMENT: VITALS: BP 110/72 Pulse 98 Temp (Src) 97.6 (Temporal) Resp 12 Ht 5' 11 (1.80m) Wt 210 lb (95.3kg) SpO2 98% BMI 29.30 kg/(m^2). Diagnostic tests reviewed for today's visit: Lab Value Units Date High Low HB No results within date range. HCT No results within date range. WBC No results within date range. PLT No results within date range. NA No results within date range. K No results within date range. GLUC No results within date range. BUN No results within date range. CREAT No results within date range. PTSEC No results within date range. INR No results within date range. APTT No results within date range. ALT No results within date range. AST No results within date range. TBILI No results within date range. TSH No results within date range. Lab Value Units Date High Low HCGQT No results within date range. UHCG No results within date range. HCG, BODY* No results within date range. Lab Value Units Date High Low ABORHD No results within date range. ABSCREEN No results within date range. Hemoglobin A1C (%) Date Value 12/06/2011 5.8 Hemoglobin A1C (POCT) (%) Date Value 06/07/2019 5.9 No results found for this or any previous visit (from the past 8760 hours). No results found for this or any previous visit (from the past 13992 hours). Instructions Given to Patient: Instructions located in the after visit summary. Patient given verbal and written preop instructions and voices comprehension and compliance. Recording using Jack[employer] software for draft documentation of the visit was discussed with the patient/authorized sales support representative; all questions welcomed and answered. Patient/authorized sales support representative agreed to proceed SIGNATURE: Lucy Marinelli APRN.CNP PATIENT NAME: Darrell Wiseman DATE: January 06, 2025 TIME: 7:58 AM PAGER/CONTACT #: [facility] 01-06-2025 History and physical note Images from the original note were not included. [facility] HISTORY AND PHYSICAL EXAMINATION SERVICE DATE: 01/06/2025 SERVICE TIME: 8:29 AM PRIMARY CARE PHYSICIAN: No primary care provider on file. Assessment Patient has the following medical conditions which may affect heath-operative course: 1. Anxiety (F41.9) - Ongoing anxiety, managed with medication. 2. Neuroma (D36.10) - Four neuromas located on the second and third toes of both feet; one on the left foot associated with a cyst and bursitis. - Patient reports pain level of 4/10, impacting ability to run. - Surgical intervention planned to address neuromas and bursitis. 3. Gastroesophageal reflux disease without esophagitis (K21.9) - Occasional acid reflux; previously managed with ranitidine, which was discontinued. - Patient not currently on any medications. Patient is diet-controlled. ANESTHESIA FINDINGS: Intubation History: No history of difficult intubation. No abnormal airway history Significant Anesthesia Considerations: none Airway History: No history of difficult airway No abnormal airway history Hill Activity Status Index: METS: Walk indoors, such as around the house (1.75 METs) Do light work around the house, such as dusting or washing dishes (2.70 METs) Take care of self; that is eating, dressing, bathing, using the toilet (2.75 METs) Walk a block or two on level ground (2.75 METs) Do moderate work around the house, such as vacuuming, sweeping floors, or carrying in groceries (3.50 METs) Do yardwork, such as raking leaves, weeding, or pushing a power mower (4.50 METs) Climb a flight of stairs or walk up a hill (5.50 METs) Participate in moderate recreational activites, such as golf, bowling, dancing, doubles tennis, or throwing a baseball or football (6.00 METs) Participate in strenuous sport, such as swimming, singles tennis, football, basketball, or skiing (7.50 METs) Do heavy work around the house, such as scrubbing floors, lifting or moving heavy furniture (8.00 METs) DASI Score: 44.95 Patient denies any chest pain or undue shortness of breath with the above physical activity. Clinical Frailty Scale: 2. Well STOP-Bang Score: Male patient Denies snoring loudly Denies feeling tired, fatigued, or sleepy during the daytime Has not been observed to stop breathing or choking/gasping during sleep Denies having high blood pressure BMI less than or equal to 35 kg/m^2 Patient 50 years old or younger Does not have a large neck STOP-Bang Score: 1 I - PHYSICAL EVALUATION AIRWAY Patient intubated: No. Tracheostomy tube not present Mallampati: II. TM distance: >3 FB. Neck ROM: full ROM without neurological symptoms. Mouth opening: adequate. Short neck: no. Thick neck: no DENTAL Dental findings: teeth intact. II - ANESTHESIA PLAN Anesthetic plan additional comments: *PACC/TCI - anesthesia choice. Beta Parris Monitoring Plan Post Procedure Analgesic Plan Prepared for Surgery: optimally prepared for surgery. CONSULTS: Patient does not require consults for optimization at this time Planned Anesthetic: anesthesia choice The Following Tests/Procedures Have Been Initiated: No orders of the defined types were placed in this encounter. REASON FOR VISIT: Darrell Wiseman is a 44 year old male who is scheduled for Procedure(s): EXCISION NEUROMA EXTREMITY LOWER (Left) at the request of Dr. Ana Garcia for consultation. My final recommendation will be communicated back to the requesting physician by way of shared medical record or letter. Subjective The patient has the following: COVID-19 Immunization Status This patient has no relevant Health Maintenance data. CHIEF COMPLAINT: pre op HPI: Darrell Wiseman is a 44-year-old male, with a history of anxiety, presenting for preoperative evaluation prior to neuroma excision. Darrell is scheduled for neuroma excision on the second and third toes of both feet. He reports chronic pain associated with the neuromas, rating the pain as 4/10. He also has a cyst under one of the neuromas on the left foot and has been informed by his surgeon that there is bursitis present as well. The pain from the neuromas is affecting his ability to walk and run short distances, though he is still able to work out four times a week. REVIEW OF SYSTEMS: General: No weight loss, malaise or fevers. Neurological: Negative for: delirium, dementia, headaches, impaired sensorium, peripheral neuropathy, seizures, TIA and strokes. Respiratory: Negative for: asthma, bronchitis, COPD, current cough, bronchodilator used daily for the last 3 months, dyspnea, home oxygen, orthopnea, pneumonia within 6 weeks, tobacco use, URI < 2 weeks and obstructive sleep apnea. Cardiovascular: Denies any heart palpitations, edema, chest pain, shortness of breath, syncope, activity intolerance, or dizziness. Negative for: abdominal aortic aneurysm, AICD/PPM, angina, anticoagulation therapy, arrhythmia, atrial fibrillation, CAD, chest pain, CHF, congenital heart defect, DVT/PE, hyperlipidemia, hypertension, recent MA, murmur/valvular heart disease, PTCA, PVD, open heart surgery and valve surgery. GI: Positive for: GERD Negative for: abdominal pain, GI bleed <30 days, hepatitis, liver disease, nausea, vomiting and ETOH >2 drinks/day. : denies CKD Negative for: on dialysis, dysuria, flank pain, frequent urination, hematuria, renal failure and urinary tract infection. Endocrine: Negative for: diabetes mellitus, hyperthyroidism and hypothyroidism. Hematology: Negative for: anemia, bruises/bleeds easily, factor V Leiden, hemophilia, thrombocytopenia, von Willebrand disease, transfusion of at least 4 units within 72 hours prior to surgery and chronic anti-coagulation/platelet meds. Oncology: Negative for: CA metastasis, chemo within 30 days, disseminated cancer and radiotherapy within 90 days. Psych: Positive for: anxiety. Musculoskeletal: See HPI. Skin: Negative for lesions, rash and itching. Implanted Devices: No implanted devices. PAST MEDICAL HISTORY Diagnosis Date Acid reflux Anxiety Erection pain 07/23/2013 Folliculitis 07/23/2013 Transplant donor evaluation 12/31/2011 PAST SURGICAL HISTORY Procedure Laterality Date CYST/MOLE REMOVAL tailbone PAST SURGICAL HISTORY OF Extraction of [place] FAMILY HISTORY Problem Relation Age of Onset Breast Cancer Mother other (Kidney Cancer [Other]) Mother other (Neuropathy [Other]) Father Anesthesia Problems No Family History Social History Tobacco Use Smoking status: Former Current packs/day: 0.00 Types: Cigarettes Start date: 06/09/2010 Quit date: 06/09/2012 Years since quittin.5 Smokeless tobacco: Former Quit date: 06/09/2001 Vaping Use Vaping status: Never Used Substance Use Topics Alcohol use: Not Currently Comment: quit last october 2023 Drug use: No Prior to Admission medications as of 01/06/25 0813 Medication Sig Last Dose Taking venlafaxine ER (EFFEXOR XR) 75 mg 24 hr capsule Take 1 capsule by mouth every morning. Yes mirtazapine (REMERON) 15 mg tablet Take 1 tablet by mouth daily at bedtime. Yes multivitamin tablet Take 1 tablet by mouth once daily. Yes PARoxetine (PAXIL) 20 mg tablet Take 1 tablet by mouth once daily. Patient not taking: Reported on 04/27/2024 busPIRone (BUSPAR) 10 mg tablet Take 1 tablet by mouth three times daily. Patient not taking: Reported on 04/27/2024 ranitidine (ZANTAC) 150 mg tablet Take 150 mg by mouth twice daily. Patient not taking: Reported on 04/27/2024 No medication comments found. ALLERGIES No Known Allergies Objective PHYSICAL EXAM: General: alert and oriented and healthy appearance. Pertinent negatives noted - not distressed. Skin: normal color, no rash or lesions. HEENT: EOM intact, pupils equal round and pupils reactive to light. Pertinent negatives noted - no carotid bruit. Cardiovascular: regular rate and rhythm, normal S1 and S2, no rub, murmurs, or gallop. Respiratory: normal breath sounds, no wheezes or crackles. No chest wall deformity or tenderness. Abdomen: bowel sounds present and soft. Pertinent negatives noted - not tender. Extremities: no deformity, no edema or tenderness, no joint swelling or clubbing. Neurological: normal cognition and motor skills. Gait normal. No weakness or sensory deficit. PAIN ASSESSMENT: VITALS: BP 110/72 Pulse 98 Temp (Src) 97.6 (Temporal) Resp 12 Ht 5' 11 (1.80m) Wt 210 lb (95.3kg) SpO2 98% BMI 29.30 kg/(m^2). Diagnostic tests reviewed for today's visit: Lab Value Units Date High Low HB No results within date range. HCT No results within date range. WBC No results within date range. PLT No results within date range. NA No results within date range. K No results within date range. GLUC No results within date range. BUN No results within date range. CREAT No results within date range. PTSEC No results within date range. INR No results within date range. APTT No results within date range. ALT No results within date range. AST No results within date range. TBILI No results within date range. TSH No results within date range. Lab Value Units Date High Low HCGQT No results within date range. UHCG No results within date range. HCG, BODY* No results within date range. Lab Value Units Date High Low ABORHD No results within date range. ABSCREEN No results within date range. Hemoglobin A1C (%) Date Value 12/06/2011 5.8 Hemoglobin A1C (POCT) (%) Date Value 06/07/2019 5.9 No results found for this or any previous visit (from the past 8760 hours). No results found for this or any previous visit (from the past 25006 hours). Instructions Given to Patient: Instructions located in the after visit summary. Patient given verbal and written preop instructions and voices comprehension and compliance. Recording using JackBe software for draft documentation of the visit was discussed with the patient/authorized sales support representative; all questions welcomed and answered. Patient/authorized sales support representative agreed to proceed SIGNATURE: Lucy Marinelli APRN.CNP PATIENT NAME: Darrell Wiseman DATE: January 06, 2025 TIME: 7:58 AM PAGER/CONTACT #: documented in this encounter [facility] 01-06-2025 Instructions Lucy Marinelli APRN.CNP - 01/06/2025 7:58 AM EDT Images from the original note were not included. [facility] PATIENT PREOPERATIVE INSTRUCTIONS Ana Garcia DPM has scheduled you for your procedure at this surgery center: [facility]: [phone] -- [address] [facility] [address]. Please read below carefully for your personalized instructions. Arrival Time for Surgery: - The Surgery Center or hospital where you are having surgery will call the afternoon before surgery (or Friday for Friday surgery) with a scheduled arrival time. - If you have not heard by 4 pm, please contact the surgery center above. Dietary Restrictions: - No solid food after midnight. - You may have 12 ounces of clear liquids (water, clear juices such as apple juice or gatorade, carbonated beverages, clear tea, black coffee, jello) until 2 hours before scheduled arrival at facility. - Do not drink any alcohol after midnight the night before your surgery. - no milk/creamer or other additives like honey - no pulp juices Medications: Pre-Surgery Med Instructions Medication Instructions venlafaxine ER (EFFEXOR XR) 75 mg 24 hr capsule If you normally take this medication in the morning, take the morning of surgery. mirtazapine (REMERON) 15 mg tablet If you normally take this medication in the morning, take the morning of surgery. multivitamin tablet Do not take the day of surgery If you are currently using a [id number] injectable or oral medication for diabetes or weight loss such as Dulaglutide (Trulicity), Exenatide (Byetta, Bydureon), Liraglutide (Victoza, Saxenda), Semaglutide (Ozempic, Wegovy, Rybelsus), or Tirzepatide (Mounjaro), the medicine should be stopped at least 7 days before surgery. These medicines can cause food to remain in your stomach for a very long time and increase the risks from surgery and anesthesia. Not stopping the medication for a long enough time may result in your surgery being rescheduled. If you take any medications for erectile dysfunction-Cialis (Tadalafil), Levitra, Staxyn (Vardenafil) Viagra (Sildenenafil please do not take these for 48 hours before surgery. If you start any new medications after today's visit, please contact the surgeon's office. Blood Thinning Medications: - Stop NSAIDS (Ibuprofen, Advil, Aleve, Motrin, Celebrex, Mobic, etc.) 7 days before surgery, as directed by your surgeon. - Stop Aspirin 7 days before surgery, as directed by your surgeon. - Stop herbal supplements 7 days before surgery. - You may take Tylenol (Acetaminophen) or any of your pain medications that do not contain aspirin or NSAIDS as needed. Important Reminders: - If you use CPAP/BIPAP, bring the machine with you to the surgery center. - If you are prescribed inhalers for breathing, continue using them. - Please be sure to brush your teeth and you can use mouth wash or rinse your mouth if dry. - Candy, mints, and tobacco products are NOT permitted the morning of surgery. - Hearing aids, dentures and glasses may be worn the morning of surgery. - If you have dentures or partials, please have a case to place them in or leave at home day of surgery. - NO jewelry, body piercings, makeup, hairpins or contacts are to be worn the day of surgery. If you develop symptoms such as a fever, cold, or flu, or have other changes to your health within TWO DAYS of scheduled surgery or the morning of surgery, please contact the surgery center above. Personal Belongings: -Please have photo ID and insurance cards. -If you do not have a copy of advance directives on file with us, please bring a copy with you on the day of surgery. - Leave ALL valuables and money at home or with family members. For Outpatient Procedures: - YOU MUST HAVE A RESPONSIBLE CONSERVATION COORDINATOR TAKE YOU HOME. A PRECISION JIG GRINDER OR PHYSIATRIST CANNOT BE MADE A RESPONSIBLE CONSERVATION COORDINATOR. - We recommend that a responsible person stays with you overnight to take care of you. - You cannot stay in a hotel alone after outpatient surgery. You will not be permitted to have your surgery, if you do not have someone to take care of you. Please be aware that emergency situations arise, which may delay or change your surgical time. If this happens, we will notify you as soon as possible and regret any inconvenience. If you already have an Advance Directive, please fax a copy to [phone] or email to for it to be added to your chart. If you do not have an Advance Directive, you can find the appropriate form and more information at [email or web address]. We recommend that you complete the Advance Directive form found on the website and bring it with you the day of your surgery. It can be witnessed and scanned into your chart that day. Lucy Marinelli APRN.CNP documented in this encounter [facility] 12-24-2024 History of Presen t illness Narrative Program_ID:[id number] Access Code: [email or web address] URL: [email or web address] Date: 12-24-2024 Prepared By: Maxine Villeda Program Notes Patient Education - Curb Climbing with Crutches - Non Weight Bearing - cc Gait Training Crutches Non Weight Bearing NWB - Sitting & Standing with Crutches - Non Weight Bearing - Walking with Crutches: Non Weight-Bearing Episode Visit Count: 1 Therapist That Will Accept/Oversee The Plan Of Care: Maxine Villeda Start of Care Date: 12/24/24 Onset Date: 01/21/25 Plan of Care Certification Date: 12/24/24 Patient Identified by Name and Date of : Yes REHABILITATION AND SPORTS THERAPY PHYSICAL THERAPY EVALUATION PLAN OF CARE: Assessment: Darrell Wiseman presents with diagnosis of neuroma that interferes with (amb with crutches while LLE NWB) . The patient presents with impairments in gait, independence in exercise, overall function, and patient reported outcome measures. PROMIS (Patient-Reported Outcomes Measurement Information System) scores were reviewed and identified as within normal limits. Prognosis for therapy is Good due to: good overall health status . The patient will benefit from skilled therapy services to meet the goals established for this plan of care as noted below. Goals for Episode of Care: established 12/24/24 Become indep with gait and transfers using B crutches while NWB LLE -- MET Patient Goals: become indep with use of B crutches while NWB LLE Time Frame for Goals and Treatment : 12/24/24 Planned Interventions, Frequency, and Duration: Current Frequency: 1 visit Duration: 1 visit Total Number of Visits Planned: 1 Planned Treatment Interventions: Gait Training (84682), Self-[facility] [facility] management (69812), Therapeutic activities (15139) PLAN FOR NEXT VISIT: Patient demonstrates good understanding of plan of care and treatment. The above goals and plan of care were discussed and agreed upon by patient/family. 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 5 points is clinically meaningfully difference Percentiles provide an indication of how the patient's score ranks in relation to the general population. Higher percentile rankings indicate better function/quality of life. 50th percentile is the average of the general population and indicates half of respondents had a worse score. OBJECTIVE MEASURES WITH LEVEL OF FUNCTION: Sensation - Lower Extremity LE Light Touch Sensation: Grossly Intact Gait Weight Bearing Status: NWB Gait: Modified Independent Gait Distance (feet): 200 Gait Device: Crutches Gait Observation: able to swing through safely without LOB and while NWB LLE Stairs: hop up to each step on RLE with x1 HR and crutches opposite UE Education: Education Learning Preferences: Demonstration, Explanation, Performance, Printed Materials Barriers: Acuity of Illness Learning/educational needs: Plan of Care, Home exercise program, Gait Training, Crutch Training Education Provided: Yes, see treatment interventions for education provided Education Provided To: Patient Education Mode/Type: Demonstration, Performance, Explanation/Discussion, Literature/Printed Materials Response to Education/Teach Back: States/Identifies TREATMENT: PT Treatment Interventions: Self-Long-Term Management, Gait Training, Therapeutic Activity Evaluation Therapeutic Activity: 1: sit <> stand from chair with B crutches and NWB LLE 2x Skilled Intervention: Proper patient guarding to prevent falls/increase patient safety with supervision to assist patient while performing sit <> stand. Minimum verbal cues for maintaining neutral spine alignment. Activity progression based on professional judgment. Gait Training: Distance (feet): 200 Gait Cues: demo provided for swing to and swing through Assistive Device: B crutches Assist Level: demo and superivsion, cues Stair Training: ascending and descending x 4 6 steps with crutches and NWB LLE Skilled Intervention: Patient was provided supervision during pre-gait/gait training to prevent falls and insure safety. Facilitated proper gait cycle with the use of verbal, visual, and tactile cues for correction of gait deviations identified in the objective section above. Self-Long-Term Management: 1: discussed shoe recommendations 2: discussed that PT will help pt. become indep with NWB amb post-op but otherwise surgical intervention is best for addressing the pain, no specific stretch will provide significant relief 3: discussed considering a knee scooter for long distances to avoid UE fatigue 4: *Access Code: [email or web address] URL: [email or web address] Date: 12/24/2024 Prepared by: Maxine Mitchell Patient Education - Curb Climbing with Crutches - Non Weight Bearing - cc Gait Training Crutches Non Weight Bearing NWB - Sitting & Standing with Crutches - Non Weight Bearing - Walking with Crutches: Non Weight-Bearing Skilled Intervention: Skilled judgment in the selection of proper modification for activity of daily living/home management based on clinical presentation, deficits, and needs. Provided written instruction for activities of daily living techniques to facilitate proper performance and compliance. Reviewed patient specific diagnosis in relation to activities of daily living/home management. Activity progression based on professional judgement. Minimum verbal cues for maintaining neutral spine alignment. Provided written instruction for home program to facilitate proper performance and compliance. Billing * Evaluation Low Complexity: 1 Unit Therapeutic Activity Treatment Minutes: 1 Self-Care/Home Management Treatment Minutes: 2 Gait Training Treatment Minutes: 8 Skilled Treatment Time Minutes (timed and untimed codes): 31 Total Session Time (minutes): 31 Session Start Time : 741 Session Stop Time : 812 Maxine Villeda PT documented in this encounter [facility] 12-24-2024 Note HNO ID: [id number] Author: MAXINE VILLEDA PT Service: ? Author Type: Physical Therapist Type: Progress Notes Filed: 12/24/2024 08:21 Note Text: Episode Visit Count: 1 Therapist That Will Accept/Oversee The Plan Of Care: Maxine Villeda Start of Care Date: 12/24/24 Onset Date: 01/21/25 Plan of Care Certification Date: 12/24/24 Patient Identified by Name and Date of : Yes REHABILITATION AND SPORTS THERAPY PHYSICAL THERAPY EVALUATION PLAN OF CARE: Assessment: Darrell Wiseman presents with diagnosis of neuroma that interferes with (amb with crutches while LLE NWB) . The patient presents with impairments in gait, independence in exercise, overall function, and patient reported outcome measures. PROMIS? (Patient-Reported Outcomes Measurement Information System) scores were reviewed and identified as within normal limits. Prognosis for therapy is Good due to: good overall health status . The patient will benefit from skilled therapy services to meet the goals established for this plan of care as noted below. Goals for Episode of Care: established 12/24/24 Become indep with gait and transfers using B crutches while NWB LLE -- MET Patient Goals: become indep with use of B crutches while NWB LLE Time Frame for Goals and Treatment : 12/24/24 Planned Interventions, Frequency, and Duration: Current Frequency: 1 visit Duration: 1 visit Total Number of Visits Planned: 1 Planned Treatment Interventions: Gait Training (76000), Self-[place] [facility] management (87357), Therapeutic activities (54015) PLAN FOR NEXT VISIT: Patient demonstrates good understanding of plan of care and treatment. The above goals and plan of care were discussed and agreed upon by patient/family. 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 5 points is clinically meaningfully difference Percentiles provide an indication of how the patient's score ranks in relation to the general population. Higher percentile rankings indicate better function/quality of life. 50th percentile is the average of the general population and indicates half of respondents had a worse score. OBJECTIVE MEASURES WITH LEVEL OF FUNCTION: Sensation - Lower Extremity LE Light Touch Sensation: Grossly Intact Gait Weight Bearing Status: NWB Gait: Modified Independent Gait Distance (feet): 200 Gait Device: Crutches Gait Observation: able to swing through safely without LOB and while NWB LLE Stairs: hop up to each step on RLE with x1 HR and crutches opposite UE Education: Education Learning Preferences: Demonstration, Explanation, Performance, Printed Materials Barriers: Acuity of Illness Learning/educational needs: Plan of Care, Home exercise program, Gait Training, Crutch Training Education Provided: Yes, see treatment interventions for education provided Education Provided To: Patient Education Mode/Type: Demonstration, Performance, Explanation/Discussion, Literature/Printed Materials Response to Education/Teach Back: States/Identifies TREATMENT: PT Treatment Interventions: Self-Long-Term Management, Gait Training, Therapeutic Activity Evaluation Therapeutic Activity: 1: sit <> stand from chair with B crutches and NWB LLE 2x Skilled Intervention: Proper patient guarding to prevent falls/increase patient safety with supervision to assist patient while performing sit <> stand. Minimum verbal cues for maintaining neutral spine alignment. Activity progression based on professional judgment. Gait Training: Distance (feet): 200 Gait Cues: demo provided for swing to and swing through Assistive Device: B crutches Assist Level: demo and superivsion, cues Stair Training: ascending and descending x 4 6 steps with crutches and NWB LLE Skilled Intervention: Patient was provided supervision during pre-gait/gait training to prevent falls and insure safety. Facilitated proper gait cycle with the use of verbal, visual, and tactile cues for correction of gait deviations identified in the objective section above. Self-Long-Term Management: 1: discussed shoe recommendations 2: discussed that PT vlad (more content not included)... [facility] 12-01-2024 Telephone encounter Note Patient elected to schedule surgery Excision of neuroma and soft-tissue inflammation, left third interspace on 01/21/2025 at [facility]. Patient was mailed surgical packet including electronic and paper copy of surgical confirmation letter, Hib[employer]i instruction on how to use product as well as instruction on where to go at [facility]. All post op were scheduled. Patient verbalized understanding of all instructions. Surgery scheduled in [facility]. Daja Martin LPN [facility] 12-01-2024 Miscellaneous Notes Patient elected to schedule surgery Excision of neuroma and soft-tissue inflammation, left third interspace on 01/21/2025 at [facility]. Patient was mailed surgical packet including electronic and paper copy of surgical confirmation letter, Hibiclens instruction on how to use product as well as instruction on where to go at [facility]. All post op were scheduled. Patient verbalized understanding of all instructions. Surgery scheduled in [facility]. Daja Martin LPN Called patient to schedule surgery. No response. Left vm to call back office. Please transfer to podiatry nurse. Daja Martin LPN Patient name: Darrell Wiseman* Type of surgery:excision of neuroma, left 3rd interspace Diagnosis: neuroma* Length of surgery:60* min Occupational Therapy Assistant needed: none* Anesthesia: mac Special equipment: c arm documented in this encounter [facility] 12-01-2024 Telephone encounter Note Called patient to schedule surgery. No response. Left vm to call back office. Please transfer to podiatry nurse. Daja Martin LPN [facility] 11-29-2024 Telephone encounter Note Patient name: Darrell Wiseman* Type of surgery:excision of neuroma, left 3rd interspace Diagnosis: neuroma* Length of surgery:60* min Occupational Therapy Assistant needed: none* Anesthesia: mac Special equipment: c arm [facility] Work Phone: 11-23-2024 Note HNO ID: [id number] Author: ANA GARCIA, ? Service: ? Author Type: Physician Type: Progress Notes Filed: 11/23/2024 12:22 Note Text: Subjective Darrell Wiseman is a 44-year-old male presenting for evaluation of bilateral foot pain. Bilateral Foot Pain: - Pain localized to the big toes and centers of both feet, described as a sensation of fullness, particularly in the big toes. - Pain intensifies by the end of work shifts, around 14:30-15:00. - Discomfort present throughout the day in areas where neuromas were identified. - Recent onset of big toe discomfort, x3 weeks. feels that the pain in his great toe is compensation for what is present between the 2nd and 3rd webspace - Pain is slightly more pronounced in the left foot but generally similar in both feet. - Uncertain if pain is worse when wearing shoes or barefoot. - Darrell has tried insoles in work shoes with minimal relief; recently ordered new insoles but has not tried them yet. - Denies smoking or vaping. - Darrell's mother had a CVA 6 months ago. Musculoskeletal: (+) bilateral foot pain, (+) sensation of fullness in bilateral big toes, (+) sharp pain in left third interspace, (+) clicking sensation in bilateral third interspace Skin: (+) cold feet in winter, (+) episodic toe discoloration turning purple/blue PAST MEDICAL HISTORY Diagnosis Date Acid reflux Anxiety Erection pain 07/23/2013 Folliculitis 07/23/2013 Transplant donor evaluation 12/31/2011 Current Outpatient Medications Medication Sig Dispense Refill venlafaxine ER (EFFEXOR XR) 75 mg 24 hr capsule Take 1 capsule by mouth every morning. mirtazapine (REMERON) 15 mg tablet Take 1 tablet by mouth daily at bedtime. multivitamin tablet Take 1 tablet by mouth once daily. PARoxetine (PAXIL) 20 mg tablet Take 1 tablet by mouth once daily. (Patient not taking: Reported on 04/27/2024) 30 tablet 4 busPIRone (BUSPAR) 10 mg tablet Take 1 tablet by mouth three times daily. (Patient not taking: Reported on 04/27/2024) 90 tablet 4 ranitidine (ZANTAC) 150 mg tablet Take 150 mg by mouth twice daily. (Patient not taking: Reported on 04/27/2024) No current facility-administered medications for this visit. Family History Problem Relation Age of Onset other (Neuropathy [Other]) Father Breast Cancer Mother other (Kidney Cancer [Other]) Mother Objective There were no vitals taken for this visit. - Cardiovascular: Dorsalis pedis and posterior tibial pulses palpable bilaterally; capillary refill <5 seconds. - Skin: Warm to cool temperature from proximal to distal; hair growth present on both feet. - Musculoskeletal: - Bilateral Feet: - Positive Carolyn's click within the bilateral third interspace. - Manual muscle testing 5/5 for dorsiflexion, plantar flexion, and inversion. - Neurological: Protective sensation intact bilaterally. - hammertoe of b/l 5th toe without pain Labs: Tests: Imaging: (10/29) Ultrasound of bilateral feet: - Right foot: - Second interspace Mariano's neuroma measuring 2-3 mm with associated bursitis - Third interspace Mariano's neuroma measuring 4-5 mm with associated bursitis - Left foot: - Second interspace Mariano's neuroma measuring 4-5 mm with associated bursitis - Third interspace Mariano's neuroma measuring 2-3 mm with associated bursitis Assessment AND Plan 1. Neuroma (D36.10) 2. 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 Bursitis of left foot (M77.52) 4. Mariano's neuroma of right foot (G57.61) 5. Bursitis of right foot (M77.51) - Ultrasound on October 29 confirmed Mariano's neuromas and associated bursitis in both feet: - Right foot: Small neuroma (2-3 mm) in the second interspace with bursitis; larger neuroma (4-5 mm) in the third interspace with bursitis. - Left foot: Moderate-sized neuroma (4-5 mm) in the second interspace with bursitis; smaller neuroma (2-3 mm) in the third interspace with bursitis. - Physical exam reveals palpable dorsalis pedis and posterior tibial pulses bilaterally, capillary refill time <5 seconds, warm to cool skin temperature from proximal to distal, and intact hair growth on both feet. Neurological protective sensation is intact bilaterally. Positive Carolyn's click within the bilateral third interspace. - Discussed treatment options including observation, corticosteroid injections, radiofrequency ablation, and surgical excision. - Patient opts for surgical excision of the neuroma and associated bursitis in the left third interspace. we offered injection today but he wishes to pursue surgery. - Explained surgical procedure, including risks (infection, bleeding, wound dehiscence, numbness, vascular compromise, cardiac arrest, blood clots) and benefits (pain relief). I informed patient that he has what appears to be two neuromas of both feet but due to concenr of vascular compromise, I can only remove one at a time. he is fine with this. - Surgery schedul (more content not included)... [facility] 11-23-2024 History of Presen t illness Narrative Subjective Darrell Wiseman is a 44-year-old male presenting for evaluation of bilateral foot pain. Bilateral Foot Pain: - Pain localized to the big toes and centers of both feet, described as a sensation of fullness, particularly in the big toes. - Pain intensifies by the end of work shifts, around 14:30-15:00. - Discomfort present throughout the day in areas where neuromas were identified. - Recent onset of big toe discomfort, x3 weeks. feels that the pain in his great toe is compensation for what is present between the 2nd and 3rd webspace - Pain is slightly more pronounced in the left foot but generally similar in both feet. - Uncertain if pain is worse when wearing shoes or barefoot. - Darrell has tried insoles in work shoes with minimal relief; recently ordered new insoles but has not tried them yet. - Denies smoking or vaping. - Darrell's mother had a CVA 6 months ago. Musculoskeletal: (+) bilateral foot pain, (+) sensation of fullness in bilateral big toes, (+) sharp pain in left third interspace, (+) clicking sensation in bilateral third interspace Skin: (+) cold feet in winter, (+) episodic toe discoloration turning purple/blue PAST MEDICAL HISTORY Diagnosis Date Acid reflux Anxiety Erection pain 07/23/2013 Folliculitis 07/23/2013 Transplant donor evaluation 12/31/2011 Current Outpatient Medications Medication Sig Dispense Refill venlafaxine ER (EFFEXOR XR) 75 mg 24 hr capsule Take 1 capsule by mouth every morning. mirtazapine (REMERON) 15 mg tablet Take 1 tablet by mouth daily at bedtime. multivitamin tablet Take 1 tablet by mouth once daily. PARoxetine (PAXIL) 20 mg tablet Take 1 tablet by mouth once daily. (Patient not taking: Reported on 04/27/2024) 30 tablet 4 busPIRone (BUSPAR) 10 mg tablet Take 1 tablet by mouth three times daily. (Patient not taking: Reported on 04/27/2024) 90 tablet 4 ranitidine (ZANTAC) 150 mg tablet Take 150 mg by mouth twice daily. (Patient not taking: Reported on 04/27/2024) No current facility-administered medications for this visit. Family History Problem Relation Age of Onset other (Neuropathy [Other]) Father Breast Cancer Mother other (Kidney Cancer [Other]) Mother Objective There were no vitals taken for this visit. - Cardiovascular: Dorsalis pedis and posterior tibial pulses palpable bilaterally; capillary refill <5 seconds. - Skin: Warm to cool temperature from proximal to distal; hair growth present on both feet. - Musculoskeletal: - Bilateral Feet: - Positive Carolyn's click within the bilateral third interspace. - Manual muscle testing 5/5 for dorsiflexion, plantar flexion, and inversion. - Neurological: Protective sensation intact bilaterally. - hammertoe of b/l 5th toe without pain Labs: Tests: Imaging: (10/29) Ultrasound of bilateral feet: - Right foot: - Second interspace Mariano's neuroma measuring 2-3 mm with associated bursitis - Third interspace Mariano's neuroma measuring 4-5 mm with associated bursitis - Left foot: - Second interspace Mariano's neuroma measuring 4-5 mm with associated bursitis - Third interspace Mariano's neuroma measuring 2-3 mm with associated bursitis Assessment & Plan 1. Neuroma (D36.10) 2. 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 Bursitis of left foot (M77.52) 4. Mariano's neuroma of right foot (G57.61) 5. Bursitis of right foot (M77.51) - Ultrasound on October 29 confirmed Mariano's neuromas and associated bursitis in both feet: - Right foot: Small neuroma (2-3 mm) in the second interspace with bursitis; larger neuroma (4-5 mm) in the third interspace with bursitis. - Left foot: Moderate-sized neuroma (4-5 mm) in the second interspace with bursitis; smaller neuroma (2-3 mm) in the third interspace with bursitis. - Physical exam reveals palpable dorsalis pedis and posterior tibial pulses bilaterally, capillary refill time <5 seconds, warm to cool skin temperature from proximal to distal, and intact hair growth on both feet. Neurological protective sensation is intact bilaterally. Positive Carolyn's click within the bilateral third interspace. - Discussed treatment options including observation, corticosteroid injections, radiofrequency ablation, and surgical excision. - Patient opts for surgical excision of the neuroma and associated bursitis in the left third interspace. we offered injection today but he wishes to pursue surgery. - Explained surgical procedure, including risks (infection, bleeding, wound dehiscence, numbness, vascular compromise, cardiac arrest, blood clots) and benefits (pain relief). I informed patient that he has what appears to be two neuromas of both feet but due to concenr of vascular compromise, I can only remove one at a time. he is fine with this. - Surgery scheduled at [facility]; outpatient procedure with sedation and local anesthesia. - Ordered crutches and a physical therapy consult for crutch training preoperatively. - Advised patient on postoperative care: keep incision clean and dry. after we see patient for first post-op visit, I will have him change dressing every 2-3 days. stitches to be removed likely in 2.5-3 weeks. - Follow-up appointments scheduled for the first and second weeks post-surgery to monitor healing. - Patient advised he may take 6-12 weeks off work due to labor-intensive job; [place] paperwork to be completed as needed. - Patient understands and agrees with the treatment plan. - offered pvr prior to procedure. he declined. discussed pain in great toe. likely compensation discussed subtle hammertoe of b/l 5th toe. this could be corrected but he has no pain. he has elected to forego hammertoe correction. Recording using JackBe software for draft documentation of the visit was discussed with the patient/authorized sales support representative; all questions welcomed and answered. 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 [facility] 10/04/24 documented in this encounter [facility] 11-23-2024 Note HNO ID: [id number] Author: CECI VINES RN Service: ? Author Type: Registered Nurse Type: Progress Notes Filed: 11/23/2024 12:22 Note Text: Patient presents with: Left Foot - Established Patient, Follow Up, Lab AND Test Results Right Foot - Established Patient, Follow Up, Lab AND Test Results AMB ROOMING INTAKE FLOWSHEET DATA Pain Pain Level: 6 Pain Location: Other: See Comment Description: Aching, Burning, Numbness, Pressure, Pulsating, Sharp, Shooting, Sore, Stabbing, Tenderness, Tingling Duration Amount of Time: 2 Duration Units: Months Frequency: Continuous Intervention/Comfort measure: Medication, Relaxation, Exercise Comments: Pain in both feet Patient presents for follow up of US results and bilateral foot neuromas. [facility] 10/04/24 [facility] 10-05-2024 Telephone encounter Note PT scheduled for MSK US on 10/29/24 at 12:45 PM at [facility]. [facility] 10-05-2024 Miscellaneous Notes PT scheduled for MSK US on 10/29/24 at 12:45 PM at [facility]. Called patient on October 05, 2024 at 8:03 AM to schedule their MSK US exam. No answer, left VM, 2nd attempt. Called patient on October 04, 2024 at 10:35 AM to schedule their MSK US exam. No answer, left VM, 1st attempt. Visit Type: ANY MSKx2 Visit Length: 90, 100 OR 120 MINUTES Order Name/Protocol: US FOOT RT+LT; MARIANO'S NEUROMA-EVAL BILATERAL 2ND+3RD IMS FOR NEUROMA Preferred Provider: N/A Comment: Please ask if the patient has ever had any prior surgery to their bilateral second+third toes. If so, upgrade the visit type to an MSK1x2 and notate the surgical hx in the Appointment Note. Location: Depending on the surgical hx, this patient can have this exam performed at any of our four locations. Slot held: N/A documented in this encounter [facility] 10-05-2024 Telephone encounter Note Called patient on October 05, 2024 at 8:03 AM to schedule their MSK US exam. No answer, left VM, 2nd attempt. [facility] 10-04-2024 Telephone encounter Note Called patient on October 04, 2024 at 10:35 AM to schedule their MSK US exam. No answer, left VM, 1st attempt. [facility] 10-04-2024 Note HNO ID: [id number] Author: ANA GARCIA, ? Service: ? Author Type: Physician Type: Progress Notes Filed: 10/04/2024 09:43 Note Text: Richi Ramírez is a 44-year-old male presenting for bilateral toe numbness and pain. Bilateral Toe Numbness and Pain: - Numbness and pain in the second, third, and fourth toes bilaterally x6 months. - Sensation described as feeling like there's something inside of them and liquid in there. - Pain localized underneath the ball of the toes. - Symptoms are bilateral and equally severe. 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 - Pain is severe enough to require sitting down shelter through the workday. - Experiences a sensation of electricity in the feet when lying in bed. - Itching in the toes that is difficult to relieve due to numbness. - Pain is present both when wearing shoes and walking barefoot; unable to walk on rough surfaces without shoes. - Using Dr. Carrion's inserts, which previously provided relief but are no longer effective. - Has been applying a foot cream for neuropathy provided by his father nightly for the past 4 months without relief. - Occasionally takes Tylenol for pain management. - Denies smoking. - Family history of neuropathy in father and brother. - Denies diabetes; was borderline pre-diabetic approximately 5 years ago. - Has not had recent blood tests. Musculoskeletal: (+) bilateral foot pain Neurological: (+) bilateral toe numbness, (+) paresthesias (feet) Skin: (+) toe itching PAST MEDICAL HISTORY Diagnosis Date Acid reflux Anxiety Erection pain 07/23/2013 Folliculitis 07/23/2013 Transplant donor evaluation 12/31/2011 Current Outpatient Medications Medication Sig Dispense Refill venlafaxine ER (EFFEXOR XR) 75 mg 24 hr capsule Take 1 capsule by mouth every morning. mirtazapine (REMERON) 15 mg tablet Take 1 tablet by mouth daily at bedtime. multivitamin tablet Take 1 tablet by mouth once daily. PARoxetine (PAXIL) 20 mg tablet Take 1 tablet by mouth once daily. (Patient not taking: Reported on 04/27/2024) 30 tablet 4 busPIRone (BUSPAR) 10 mg tablet Take 1 tablet by mouth three times daily. (Patient not taking: Reported on 04/27/2024) 90 tablet 4 ranitidine (ZANTAC) 150 mg tablet Take 150 mg by mouth twice daily. (Patient not taking: Reported on 04/27/2024) No current facility-administered medications for this visit. ALLERGIES No Known Allergies Objective There were no vitals taken for this visit. - Cardiovascular: Dorsalis pedis and posterior tibial pulses palpable bilaterally. Capillary refill time <5 seconds. Skin temperature warm to cool. Hair growth present bilaterally. - Skin: No open sores or lesions noted bilaterally; normal color and temperature. - Musculoskeletal: - Feet: - Flat feet with slight pronation. - Slight curling of second and third toes bilaterally. - Pain and swelling in left second and third interspaces. - Pain in right second and third interspaces. - Negative Regulatory Affairs Director's sign in right foot. - Positive Regulatory Affairs Director's sign in left third interspace. - Neurological: - Sensation intact in left foot. - Protective sensation intact in right foot, decreased in second and third toes. - Vibratory sensation slightly decreased in right foot. Labs: - Laboratory evaluation: Borderline pre-diabetes. Tests: - Excisional biopsy of skin lesions: No abnormal findings. Imaging: - [facility] scan: No abnormalities identified. 1. Neuroma (D36.10) - Differential diagnoses include neuroma, bursitis, and neuropathy. - Symptoms include numbness and pain in the second, third, and fourth toes bilaterally, with a sensation of liquid under the ball of the foot. 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 - Suspected neuroma in the third interspace bilaterally. - Discussed potential treatments, including supportive footwear and orthotic inserts. Provided PowerStep inserts. - Ordered ultrasound to confirm the presence of neuroma, to be performed at the [facility] [address]. - Discussed the possibility of corticosteroid injections if symptoms persist. - Patient understands and agrees with the treatment plan. Attestation Recording using JackBe software for draft documentation of the visit was discussed with the patient/authorized sales support representative; all questions welcomed and answered. Patient/authorized sales support representative agreed to proceed Ana Garcia DPM [facility] 10-04-2024 Telephone encounter Note Visit Type: ANY MSKx2 Visit Length: 90, 100 OR 120 MINUTES Order Name/Protocol: US FOOT RT+LT; MARIANO'S NEUROMA-EVAL BILATERAL 2ND+3RD IMS FOR NEUROMA Preferred Provider: N/A Comment: Please ask if the patient has ever had any prior surgery to their bilateral second+third toes. If so, upgrade the visit type to an MSK1x2 and notate the surgical hx in the Appointment Note. Location: Depending on the surgical hx, this patient can have this exam performed at any of our four locations. Slot held: N/A [facility] 10-04-2024 Note HNO ID: [id number] Author: DAJA MARTIN LPN Service: ? Author Type: LICENSED NURSE Type: Progress Notes Filed: 10/04/2024 09:43 Note Text: Per Dr. Garcia Darrell was provided with powerstep gel inserts, size 9, and instructed/educated in its application, wear, and care. All questions were answered, and patient was able to demonstrate competence with the necessary skills to utilize the above equipment. Daja Martin LPN [facility] 10-04-2024 Note HNO ID: [id number] Author: DAJA MARTIN LPN Service: ? Author Type: LICENSED NURSE Type: Progress Notes Filed: 10/04/2024 09:43 Note Text: AMB ROOMING INTAKE FLOWSHEET DATA Pain Pain Level: 6 Pain Location: Other: See Comment Description: Aching, Burning, Numbness, Pressure, Pulsating, Sharp, Shooting, Stabbing, Tenderness, Throbbing, Tingling, Other: See comment Duration Amount of Time: 6 Duration Units: Months Frequency: Continuous Comments: Continuous pain and numbness in both feet. Bottoms of my feet are very sensitive which is unusual for me. Patient presents with: Left Foot - New, Numbness, Pain Right Foot - New, Numbness, Pain Daja Martin LPN [facility] 04-27-2024 Instructions Ema Barboza APRN.NUMERICAL CONTROL MACHINE TOOL OPERATOR - 04/27/2024 7:57 AM EST ASSESSMENT/PLAN: 1. Otitis media with effusion, left - ICD9: 381.4, ICD10: H65.92 - Will begin treatment with as per antibiotic as written, see orders - Supportive care with plenty of fluids, rest, and analgesia prn. - AMOXICILLIN 875 MG TABLET - Follow-up with your PCP in 3-5 days if symptoms have not improved or sooner if symptoms worsen - Discussed red flags and need for immediate medical evaluation if any occur. - Discussed supportive care treatment with fluids, rest and analgesia. - Discussed expected course of illness Ema Barboza APRN.[facility] OTITIS MEDIA GENERAL INFORMATION: Otitis media is an infection of the middle ear. The middle ear sits behind the eardrum. This infection may be caused by a virus or bacteria and often follows a cold. Children often have repeat ear infections. Otitis media is not contagious. INSTRUCTIONS: 1. An antibiotic has been prescribed. It should be taken exactly as prescribed. Do not stop the medicine even if the symptoms go away. 2. Tojp-kzw-[id number] pain medication may be taken or other pain medication as prescribed by the doctor. 3. Nothing should be placed in the ear unless instructed by your doctor. 4. The patient may return to school/daycare or work when the temperature is normal (98.6 F or 37 C). 5. The patient should not swim while the ear is infected. CONTACT YOUR DOCTOR IF YOU OR YOUR CHILD: 1. Does not feel better within 36 hours. 2. Develops a temperature over 102E F (39E C). 3. Starts vomiting or has diarrhea. 4. Develops drainage from the affected ear. 5. Has any new problem that may be related to the medicine prescribed. RETURN TO THE ED IF: 1. You or your child has a severe headache or pain around the ear. 2. You or your child notice swelling around the ear. 3. You or your child has a seizure (convulsion), twitching of the facial muscles, or passes out. 4. You or your child is dizzy, has a stiff neck, or cannot walk or talk normally. 5. Your child becomes more irritable or listless (not interested in his or her surroundings, does not get soothed by you holding him or her). documented in this encounter [facility] 04-27-2024 Note HNO ID: [id number] Author: EMA BARBOZA APRN.NUMERICAL CONTROL MACHINE TOOL OPERATOR Service: ? Author Type: Nurse Practitioner Type: Progress Notes Filed: 04/27/2024 07:57 Note Text: Subjective Ear Pain Associated symptoms include congestion and headaches. Pertinent negatives include no chills, coughing, fever, rash or sore throat. Darrell Wiseman is a 43 year old male who presents with left ear pain since 04/18. He was seen by a different provider on 04/21 and advised to use flonase and allergy relief medication. He has been using these without improvement. He describes left ear pain as pressure and rates pain 4/10. It increases and feels sharp when he chews. He has had some nasal congestion and headaches as well. No fever. Review of Systems Constitutional: Negative for chills and fever. HENT: Positive for congestion. Negative for sore throat. Respiratory: Negative for cough. Cardiovascular: Negative. Skin: Negative for itching and rash. Neurological: Positive for headaches. Negative for dizziness. BP 144/90 Pulse 80 Temp 36.4 ?C (97.5 ?F) Resp 16 Wt 99.1 kg (218 lb 7.6 oz) SpO2 96% BMI 30.47 kg/m? PAST MEDICAL HISTORY Diagnosis Date Acid reflux Anxiety Erection pain 07/23/2013 Folliculitis 07/23/2013 Transplant donor evaluation 12/31/2011 PAST SURGICAL HISTORY Procedure Laterality Date PAST SURGICAL HISTORY OF Extraction of [place] ALLERGIES Patient has no known allergies. MEDICATIONS venlafaxine ER (EFFEXOR XR) 75 mg 24 hr capsule Take 1 capsule by mouth every morning. mirtazapine (REMERON) 15 mg tablet Take 1 tablet by mouth daily at bedtime. multivitamin tablet Take 1 tablet by mouth once daily. amoxicillin (AMOXIL) 875 mg tablet Take 1 tablet by mouth two times a day for 7 days. PARoxetine (PAXIL) 20 mg tablet Take 1 tablet by mouth once daily. (Patient not taking: Reported on 04/27/2024) busPIRone (BUSPAR) 10 mg tablet Take 1 tablet by mouth three times daily. (Patient not taking: Reported on 04/27/2024) ranitidine (ZANTAC) 150 mg tablet Take 150 mg by mouth twice daily. (Patient not taking: Reported on 04/27/2024) FAMILY HISTORY Problem Relation Age of Onset other (Neuropathy [Other]) Father Breast Cancer Mother other (Kidney Cancer [Other]) Mother Social History Tobacco Use Smoking status: Former Current packs/day: 0.00 Types: Cigarettes Start date: 06/09/2010 Quit date: 06/09/2012 Years since quittin.8 Smokeless tobacco: Former Quit date: 06/09/2001 Substance Use Topics Alcohol use: Yes Comment: Occasionally Drug use: No Objective Physical Exam Vitals and nursing note reviewed. Constitutional: General: He is not in acute distress. Appearance: Normal appearance. He is not ill-appearing. HENT: Right Ear: Tympanic membrane, ear canal and external ear normal. Left Ear: Ear canal and external ear normal. A middle ear effusion is present. Tympanic membrane is injected. Nose: Nose normal. Mouth/Throat: Pharynx: Uvula midline. No oropharyngeal exudate or posterior oropharyngeal erythema. Cardiovascular: Rate and Rhythm: Normal rate and regular rhythm. Heart sounds: Normal heart sounds. Pulmonary: Effort: Pulmonary effort is normal. No respiratory distress. Breath sounds: Normal breath sounds. No wheezing or rales. Musculoskeletal: Cervical back: Neck supple. Lymphadenopathy: Cervical: No cervical adenopathy. Skin: General: Skin is warm and dry. Findings: No erythema or rash. Neurological: Mental Status: He is alert. ASSESSMENT/PLAN: 1. Otitis media with effusion, left - ICD9: 381.4, ICD10: H65.92 - Will begin treatment with as per antibiotic as written, see orders - Supportive care with plenty of fluids, rest, and analgesia prn. - AMOXICILLIN 875 MG TABLET - Follow-up with your PCP in 3-5 days if symptoms have not improved or sooner if symptoms worsen - Discussed red flags and need for immediate medical evaluation if any occur. - Discussed supportive care treatment with fluids, rest and analgesia. - Discussed expected course of illness Ema Barboza APRN.[facility] 04-27-2024 History of Presen t illness Narrative Subjective Ear Pain Associated symptoms include congestion and headaches. Pertinent negatives include no chills, coughing, fever, rash or sore throat. Darrell Wiseman is a 43 year old male who presents with left ear pain since 04/18. He was seen by a different provider on 04/21 and advised to use flonase and allergy relief medication. He has been using these without improvement. He describes left ear pain as pressure and rates pain 4/10. It increases and feels sharp when he chews. He has had some nasal congestion and headaches as well. No fever. Review of Systems Constitutional: Negative for chills and fever. HENT: Positive for congestion. Negative for sore throat. Respiratory: Negative for cough. Cardiovascular: Negative. Skin: Negative for itching and rash. Neurological: Positive for headaches. Negative for dizziness. BP 144/90 Pulse 80 Temp 36.4 C (97.5 F) Resp 16 Wt 99.1 kg (218 lb 7.6 oz) SpO2 96% BMI 30.47 kg/m PAST MEDICAL HISTORY Diagnosis Date Acid reflux Anxiety Erection pain 07/23/2013 Folliculitis 07/23/2013 Transplant donor evaluation 12/31/2011 PAST SURGICAL HISTORY Procedure Laterality Date PAST SURGICAL HISTORY OF Extraction of [place] ALLERGIES Patient has no known allergies. MEDICATIONS venlafaxine ER (EFFEXOR XR) 75 mg 24 hr capsule Take 1 capsule by mouth every morning. mirtazapine (REMERON) 15 mg tablet Take 1 tablet by mouth daily at bedtime. multivitamin tablet Take 1 tablet by mouth once daily. amoxicillin (AMOXIL) 875 mg tablet Take 1 tablet by mouth two times a day for 7 days. PARoxetine (PAXIL) 20 mg tablet Take 1 tablet by mouth once daily. (Patient not taking: Reported on 04/27/2024) busPIRone (BUSPAR) 10 mg tablet Take 1 tablet by mouth three times daily. (Patient not taking: Reported on 04/27/2024) ranitidine (ZANTAC) 150 mg tablet Take 150 mg by mouth twice daily. (Patient not taking: Reported on 04/27/2024) FAMILY HISTORY Problem Relation Age of Onset other (Neuropathy [Other]) Father Breast Cancer Mother other (Kidney Cancer [Other]) Mother Social History Tobacco Use Smoking status: Former Current packs/day: 0.00 Types: Cigarettes Start date: 06/09/2010 Quit date: 06/09/2012 Years since quittin.8 Smokeless tobacco: Former Quit date: 06/09/2001 Substance Use Topics Alcohol use: Yes Comment: Occasionally Drug use: No Objective Physical Exam Vitals and nursing note reviewed. Constitutional: General: He is not in acute distress. Appearance: Normal appearance. He is not ill-appearing. HENT: Right Ear: Tympanic membrane, ear canal and external ear normal. Left Ear: Ear canal and external ear normal. A middle ear effusion is present. Tympanic membrane is injected. Nose: Nose normal. Mouth/Throat: Pharynx: Uvula midline. No oropharyngeal exudate or posterior oropharyngeal erythema. Cardiovascular: Rate and Rhythm: Normal rate and regular rhythm. Heart sounds: Normal heart sounds. Pulmonary: Effort: Pulmonary effort is normal. No respiratory distress. Breath sounds: Normal breath sounds. No wheezing or rales. Musculoskeletal: Cervical back: Neck supple. Lymphadenopathy: Cervical: No cervical adenopathy. Skin: General: Skin is warm and dry. Findings: No erythema or rash. Neurological: Mental Status: He is alert. ASSESSMENT/PLAN: 1. Otitis media with effusion, left - ICD9: 381.4, ICD10: H65.92 - Will begin treatment with as per antibiotic as written, see orders - Supportive care with plenty of fluids, rest, and analgesia prn. - AMOXICILLIN 875 MG TABLET - Follow-up with your PCP in 3-5 days if symptoms have not improved or sooner if symptoms worsen - Discussed red flags and need for immediate medical evaluation if any occur. - Discussed supportive care treatment with fluids, rest and analgesia. - Discussed expected course of illness Ema Barboza APRN.[facility] documented in this encounter [facility] 03-28-2023 Procedure note [facility] 09-26-2021 Miscellaneous Notes My chart message sent to notify patient to set up an appointment. Raegan Gamez LPN I refused this once already today. Our records show he has been out for 4 months and has not been seen since 2019. He needs to be seen prior to restarting these medications. Thank you Rola Rainey APRN.NUMERICAL CONTROL MACHINE TOOL OPERATOR NOV none [facility] 05/12/20 Patient electronically sent a request for the following prescription(s) Pending Prescriptions Disp Refills PAROXETINE 20 MG TABLET 30 tablet 4 Sig: Take 1 tablet by mouth once daily. KASHIF: No BUSPIRONE 10 MG TABLET 90 tablet 4 Sig: Take 1 tablet by mouth three times daily. KASHIF: No Patient aware RX will be sent to pharmacy. No need to notify patient. Please review. Tatyana Machado MA documented in this encounter [facility] 09-26-2021 Miscellaneous Notes Per our records, patient should have been out of medication for the last 4 months. If he has not taken this in months he will need a visit to discuss restarting this. Has not been seen since 2019. Thank you Rola Rainey APRN.NUMERICAL CONTROL MACHINE TOOL OPERATOR NOV none HANK 05/12/20 Patient electronically sent a request for the following prescription(s) Pending Prescriptions Disp Refills BUSPIRONE 10 MG TABLET 90 tablet 0 Sig: TAKE 1 TABLET BY MOUTH THREE TIMES DAILY KASHIF: Yes PAROXETINE 20 MG TABLET 30 tablet 0 Sig: Take 1 tablet by mouth once daily KASHIF: Yes Patient aware RX will be sent to pharmacy. No need to notify patient. Please review. Tatyana Machado MA documented in this encounter [facility] 07-23-2013 History of Past i llness Narrative Problem Noted Date Resolved Date Folliculitis 07/23/2013 06/01/2019 Last Assessment & Plan: He has been having folliculitis on the chest and the neck, they develop into a cystic structure, that is a little on the Deeper skin. He has take topical antibiotics for it in the past that have helped, but keep coming back every 6 months. No acne in the face, whenever he manipulates any of them they really get huge and infected. No fevers or chills. HE works out a lot but uses a clean T shirt, each day. Kidney donor 12/23/2011 07/23/2013 documented as of this encounter (statuses as of 09/26/2021) [facility] History of Past illness Narrative* Problem Noted Date Resolved Date Folliculitis 07/23/2013 06/01/2019 Last Assessment & Plan: He has been having folliculitis on the chest and the neck, they develop into a cystic structure, that is a little on the Deeper skin. He has take topical antibiotics for it in the past that have helped, but keep coming back every 6 months. No acne in the face, whenever he manipulates any of them they really get huge and infected. No fevers or chills. HE works out a lot but uses a clean T shirt, each day. Kidney donor 12/23/2011 07/23/2013 documented as of this encounter (statuses as of 10/02/2021) [facility] Fern Dykes [facility] March 28, 2023 12:50pm Note Date/Time March 28, 2023 1 2:48pm [facility] Medical Records Department [address] [place] [address] Instructions for Home/Discharge Instructions 03/28/23 1244 MR#: [id number] Acct: [id number] Name: DARRELL WISEMAN Rep #:[id number] : 1980 42 From: Fern Dykes MD PCP: Care Physician,No Primary Status :[facility] [place] Discharge Instructions Diet Discharge Diet: No restrictions Activity Additional Activity Instructions:: Keep your back elevated (recliner position) for the next 2-3 nights to reduce bleeding and swelling. Take the oral antibiotic (Keflex) 2 x a day until finished. On the forehead--may remove the bandaid tomorrow and leave it open. On the cheek--do not shave over the area. Follow Up Care Please Follow Up With: Fern Dykes MD Test Results: Test results from this visit will be discussed in further detail at your follow- up appointment, if applicable. Discharge Plan Admission Attending Provider: Fern Dykes Primary Care Provider: Gaby Physician,Arabella Primary Discharge Orders/Prescriptions Prescriptions: New cephalexin 500 mg capsule 500 mg PO BID Qty: 10 0RF No Action mirtazapine 15 mg Tablet 15 mg PO QHS buspirone [BuSpar] 15 mg Tablet 15 mg PO TID venlafaxine 37.5 mg tablet 75 mg PO DAILY Referrals / Follow Up: Care Physician,No Primary [Primary Care Provider] - Disposition Disposition (needs filled in before D/C Order can be placed): Home, Self Care 03/28/23 1250<Electronically signed by Fern Dykes MD>Fern Dykes MD CC: No Primary Care Physician ~ Signed [facility] Work Phone: Evaluation note* Diagnosis Anxiety Anxiety state, unspecified [facility] Diagnosis Anxiety Anxiety state, unspecified [facility]* Diagnosis Onset Date Resolution Status Neoplasm of uncertain behavior of skin acute Neoplasm of uncertain behavior of skin acute [facility] Work Phone: Evaluation note* Diagnosis Otitis media with effusion, left- Primary [facility] Diagnosis Neuroma- Primary Other benign neoplasm of connective and other soft tissue of unspecified site Mariano's neuroma of left foot Lesion of plantar nerve Bursitis of left foot Mariano's neuroma of right foot Lesion of plantar nerve Bursitis of right foot [facility]* Diagnosis Neuroma Other benign neoplasm of connective and other soft tissue of unspecified site Neuroma Other benign neoplasm of connective and other soft tissue of unspecified site [facility] Diagnosis Anxiety- Primary Anxiety state, unspecified Neuroma Other benign neoplasm of connective and other soft tissue of unspecified site Gastroesophageal reflux disease without esophagitis Esophageal reflux Neuroma Other benign neoplasm of connective and other soft tissue of unspecified site [facility] Diagnosis Neuroma- Primary Other benign neoplasm of connective and other soft tissue of unspecified site [facility] Diagnosis Neuroma- Primary Other benign neoplasm of connective and other soft tissue of unspecified site [facility] Diagnosis Neuroma- Primary Other benign neoplasm of connective and other soft tissue of unspecified site Post-operative state Other postprocedural status [facility] Diagnosis Post-operative state- Primary Other postprocedural status Neuroma Other benign neoplasm of connective and other soft tissue of unspecified site [facility] Diagnosis Post-operative state- Primary Other postprocedural status Neuroma Other benign neoplasm of connective and other soft tissue of unspecified site [facility] Author Fern Dykes [facility] March 28, 2023 11:45am Note Date/Time March 28, 2023 1 1:45am [facility] Medical Records Department [address] [place] [id number] History & Physical Exam 03/28/23 1144 MR#: [id number] Acct: [id number] Name: DARRELL WISEMAN Rep #:[id number] : 1980 42 From: Fern Dykes MD PCP: Care Physician,No Primary Status :[facility] [place] Location: [place] [address] History and Physical Date of Admission: 03/28/23 Patient examined and H&P is unchanged from examination on 03/25/2023. He has a lesion of his forehead and right cheek for excision and submitted for pathologic evaluation. Informed consent was obtained. Assessment & Plan Assessment/Plan (1) Neoplasm of uncertain behavior of skin: PLAN: Plan For excision lesions forehead and cheek 03/28/23 1145 <Electronically signed by Fern Dykes MD> Cosigner Signature (if applicable): CC: Dr. Fern Dykes MD; No Primary Care Physician~ Signed [facility] Work Phone: Chief Complaint and Reason for Visit Chief Complaint CHEST PAIN Chief Complaint SPOTS ON FACE CHANGI NG IN SIZE Reason for Visit Neoplasm of uncertai n behavior of skin Neoplasm of uncertain behavior of skin Advance Directives No Advanced Directives Records Found Advance Directive Response Recorded Date/ Time Living Will No September 06, 2022 12:27am Power of Permaculture Contractor No September 06 12:27am Advance Directive Response Recorded Date/ Time Living Will No March 27 8:50am Power of Permaculture Contractor No March 27, 2023 8:50am Summary Purpose Family History No Family History Records Found Additional Source Comments Source Comments (unrecognize d section and content) In the event this informatio n is protected by the Federal Confidentiality of Alcohol and Drug Abuse Patient Records regulations: The Federal rules restrict any use of the information to criminally investigate or prosecute any alcohol or drug abuse patient.[facility] the event this information is protected by the Federal Confidentiality of Alcohol and Drug Abuse Patient Records regulations: The Federal rules restrict any use of the information to criminally investigate or prosecute any alcohol or drug abuse patient.[facility] the event this information is protected by the Federal Confidentiality of Alcohol and Drug Abuse Patient Records regulations: The Federal rules restrict any use of the information to criminally investigate or prosecute any alcohol or drug abuse patient.[facility] the event this information is protected by the Federal Confidentiality of Alcohol and Drug Abuse Patient Records regulations: The Federal rules restrict any use of the information to criminally investigate or prosecute any alcohol or drug abuse patient.[facility] Campus[facility] the event this information is protected by the Federal Confidentiality of Alcohol and Drug Abuse Patient Records regulations: The Federal rules restrict any use of the information to criminally investigate or prosecute any alcohol or drug abuse patient.[facility] Campus[facility] the event this information is protected by the Federal Confidentiality of Alcohol and Drug Abuse Patient Records regulations: The Federal rules restrict any use of the information to criminally investigate or prosecute any alcohol or drug abuse patient.[facility] Campus[facility] the event this information is protected by the Federal Confidentiality of Alcohol and Drug Abuse Patient Records regulations: The Federal rules restrict any use of the information to criminally investigate or prosecute any alcohol or drug abuse patient.[facility] Campus[facility] the event this information is protected by the Federal Confidentiality of Alcohol and Drug Abuse Patient Records regulations: The Federal rules restrict any use of the information to criminally investigate or prosecute any alcohol or drug abuse patient.[facility] CampusIn the event this information is protected by the Federal Confidentiality of Alcohol and Drug Abuse Patient Records regulations: The Federal rules restrict any use of the information to criminally investigate or prosecute any alcohol or drug abuse patient.[facility] Campus[facility] the event this information is protected by the Federal Confidentiality of Alcohol and Drug Abuse Patient Records regulations: The Federal rules restrict any use of the information to criminally investigate or prosecute any alcohol or drug abuse patient.[facility] Campus[facility] the event this information is protected by the Federal Confidentiality of Alcohol and Drug Abuse Patient Records regulations: The Federal rules restrict any use of the information to criminally investigate or prosecute any alcohol or drug abuse patient.[facility] CampusIn the event this information is protected by the Federal Confidentiality of Alcohol and Drug Abuse Patient Records regulations: The Federal rules restrict any use of the information to criminally investigate or prosecute any alcohol or drug abuse patient.[facility] CampusIn the event this information is protected by the Federal Confidentiality of Alcohol and Drug Abuse Patient Records regulations: The Federal rules restrict any use of the information to criminally investigate or prosecute any alcohol or drug abuse patient.[facility] Reason for Visit (unrecogniz ed section and content) Reason Comments Refill Request Reason Onset Date Comments Refill Request 09/26/2021 Reason Comments Ear Pain left eye irritation x 9 days Reason Comments Appointment Reason Comments Established Patient Follow Up Lab & Test Results Reason Comments PT Discharge Specialty Diagnoses / Procedures Referred By Contac t Referred To Contact [facility] Diagnoses Neuroma Procedures CONSULT TO PHYSICAL THERAPY PHYSICAL THERAPY EVALUATION HIGH COMPLEX 45 MINS THERAPEUTIC EXERCISES RE, EA 15 MIN. Ana Garcia [address] [place] [address] Phone: tel: fax: [facility] [address] [place] [address] Referral ID Status Reason Start Date Expiration Date Visits Requested Visits Authorized [id number] Authorized Auto-Generat ed Referral 06/09/2024 06/08/2025 99 99 Reason Comments Consult surgery at [facility] on 01/21/25 Reason Comments Schedule Surgery Reason Comments Established Patient Follow Up Pain Swelling Post Op Reason Comments Post Op S/P Excision of neur brian Care Teams (unrecognized sec tion and content) Psychiatric Aide Instructor Relationship Specialty Start Date End Date Mel Warren MD [address] [place], [place] [address] PCP - General Internal Medicine 07/23/13 Psychiatric Aide Instructor Relationship Specialty Start Date End Date Mel Warren MD [address] [place], [place] [id number] PCP - General Internal Medicine 07/23/13 Team Status: Active Member Role Status Dates No Primary Care Physician Primary Care Provider Active Team Status: Inactive Member Role Status Dates Dr. Jose Vaughan MD Emergency Provider Active No Primary Care Physician Primary Care Provider Active Team Status: Inactive Member Role Status Dates No Primary Care Physician Primary Care Provider, Refer ring Provider Active Dr. Fern Dykes MD Attending Provider Active Team Status: Active Member Role Status Dates No Primary Care Physician Primary Care Provider Active Dr. Fern Dykes MD Attending Provid er, Referring Provider, Other Provider Active Team Status: Inactive Member Role Status Dates No Primary Care Physician Primary Care Provider Active Dr. Fern Dykes MD Attending Provider, Referring Provider Active Psychiatric Aide Instructor Relationship Specialty Start Date End Date Mel Warren MD [address] [address] PCP - General Internal Medicine 07/23/13 Goals (unrecognized section and content) Goals may be documented in a n alternate section (unrecognized sect ion and content) No Status Records FoundNo Status Records FoundNo Status Records Found INFORMATION SOURCE (unrecogn ized section and content) DATE CREATED AUTHOR 04/28/2024 [facility] DATE CREATED AUTHOR AUTHOR'S ORGANIZ ATION 01/26/2025 [facility] DATE CREATED AUTHOR AUTHOR'S ORGANIZ ATION 04/04/2025 [facility] FOR RECORDS PERTAINING TO PATIENTS WHO ARE OR HAVE BEEN ENROLLED IN A CHEMICAL DEPENDENCY/SUBSTANCEABUSE PROGRAM, SOME INFORMATION MAY BE OMITTED. This clinical summary was aggregated from multiple sources. Caution should be exercised in using it in the provision of clinical care. This summary normalizes information from multiple sources, and as a consequence, information in this document may materially change the coding, format and clinical context of patient data. In addition, data may be omitted in some cases. CLINICAL DECISIONS SHOULD BE BASED ON THE PRIMARY CLINICAL RECORDS. [facility]. provides no warranty or guarantee of the accuracy or completeness of information in this document.
--- NOTE | 2025-05-27 07:07 | MRI_ITS ---
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 COMPARISON: COMPARISON : None available for review FINDINGS: Bone Marrow: Mild degenerative marrow signal. Effusion: Tiny effusion of the 1st metatarsophalangeal joint. Soft Tissues: A tiny T2 hyperintense cysts is noted at the dorsal aspect of the 3rd and 4th metatarsal heads just underlying the skin. Ligaments and Tendons: No evidence of ligamentous or tendon injury. Osseous structures are otherwise within normal limits. MRI/Lower Ext/No Jt/w/o IMPRESSION: 1. No definitive solid mass to suggest neuroma of the left foot. A tiny subde rmal cyst is noted at the level of the 3rd and 4th metatarsal heads, dorsal aspect. 2. Small effusion at the left 1st metatarsophalangeal joint. No obvious ligam entous or tendinous abnormality. Reading Location: [id number]
== END | disposition home or self-care (01) ==
LOC: OPMRI 06:54
PROVIDERS: Referring Provider Podiatrist; Visit Provider Podiatrist
DX: M79.672 Pain in left foot (principal); G57.62 Lesion of plantar nerve, left lower limb
CPT/HCPCS: 73718